=== PATIENT | female | born 1935 | race Hispanic/Latino ===

== ENCOUNTER 2016-07-21 14:16 | Inpatient (IN) | payer MEDICARE ==
--- NOTE | 2016-07-21 15:00 | ED PDOC ---
HPI: Psych/Substance Abuse Time Seen by Provider: 07/21/16 14:29 Chief Complaint (Nursing): Anxiety Chief Complaint (Provider): Anxiety History Per: Patient, Family History/Exam Limitations: no limitations Onset/Duration Of Symptoms: Days Current Symptoms Are (Timing): Still Present Suicide/Self Injury Attempted (Context): None Modifying Factor(s): None Severity: Severe Associated Symptoms: Anxiety Involuntary Hold By: None Additional Complaint(s): Patient is a 81 year old female brought to ED by EMS for severe anxiety today. Patient reports a history of bipolar and anxiety, notes 1 week of worsening anxiety due to being in the hospital. As per granddaughter, patient was clenching her teeth, growling which is unlike her usual anxiety. Patient requesting something to help relax her. Past Medical History Reviewed: Historical Data, Nursing Documentation, Vital Signs Vital Signs: Last Vital Signs Temp 97.7 F 07/21/16 14:20 Pulse 85 07/21/16 14:20 Resp 30 H 07/21/16 14:20 BP 155/92 H 07/21/16 14:20 Pulse Ox 97 07/21/16 14:20 - Medical History PMH: Anxiety, Bipolar Disorder, Depression, HTN, Hypercholesterolemia, Hypothyroidism Denies: Diabetes, Hepatitis, HIV, Chronic Kidney Disease, Seizures, Sexually Transmitted Disease - Surgical History Surgical History: Cholecystectomy Denies: CABG - Family History Family History: States: Unknown Family Hx - Home Medications Home Medications: Ambulatory Orders Medication Instructions Recorded Enalapril Maleate [Vasotec] 5 mg PO DAILY 06/04/16 Levothyroxine [Synthroid] 0.05 mg PO DAILY 06/04/16 Simvastatin [Zocor] 20 mg PO DAILY 06/04/16 Gabapentin [Neurontin] 300 mg PO HS #14 cap 06/09/16 Lorazepam [Ativan] 0.5 mg PO Q12 #28 tab 06/09/16 QUEtiapine [SEROquel] 50 mg PO DAILY #14 tab 06/09/16 QUEtiapine [Seroquel] 100 mg PO HS #14 tab 06/09/16 Sulfamethoxazole/Trimethoprim 1 tab PO Q12 #10 tab 06/09/16 [Bactrim DS Tab] Vilazodone HCl [Viibryd] 40 mg PO HS #14 tablet 06/09/16 - Allergies Allergies/Adverse Reactions: Allergies Allergy/AdvReac Type Severity Reaction Status Date / Time levofloxacin [From Levaquin] Allergy RASH Verified 06/04/16 11:49 Review of Systems ROS Statement: Except As Marked, All Systems Reviewed And Found Negative Cardiovascular: Negative for: Chest Pain, Palpitations Respiratory: Negative for: Shortness of Breath Gastrointestinal: Negative for: Nausea, Vomiting Musculoskeletal: Negative for: Neck Pain Skin: Negative for: Rash Neurological: Negative for: Weakness, Numbness Psych: Positive for: Anxiety Physical Exam - Reviewed Nursing Documentation Reviewed: Yes Vital Signs Reviewed: Yes - Physical Exam Appears: Positive for: Non-toxic, No Acute Distress Skin: Positive for: Normal Color, Warm Eye Exam: Positive for: Normal appearance Neck: Positive for: Normal, Painless ROM Cardiovascular/Chest: Positive for: Regular Rate, Rhythm. Negative for: Murmur Respiratory: Positive for: Normal Breath Sounds. Negative for: Respiratory Distress Extremity: Positive for: Normal ROM Neurologic/Psych: Positive for: Alert, Oriented, Mood/Affect (anxious ) - Laboratory Results Result Diagrams: 07/21/16 15:00 07/21/16 15:00 - ECG O2 Sat by Pulse Oximetry: 97 (RA) Pulse Ox Interpretation: Normal Medical Decision Making Medical Decision Making: Time: 1455 Initial impression: Anxiety Initial plan: -- Tylenol Level -- Alcohol serum -- BMP -- CMP -- UDS -- Salicylate -- CBC -- Ativan -- U/A Scribe Attestation: Documented by Ariadne Elise and Misty Avery acting as a scribe for Kimberlyn Saeed MD MD Scribe Attestation: All medical record entries made by the Scribe were at my direction and personally dictated by me. I have reviewed the chart and agree that the record accurately reflects my personal performance of the history, physical exam, medical decision making, and the department course for this patient. I have also personally directed, reviewed, and agree with the discharge instructions and disposition. ED OBSERVATION Date of observation admission: 07/21/16 Time of observation admission: 14:35 - Progress Note Progress Note: 07/21/16 16:20 Hematology and Chem WNL 07/21/16 16:30 food preparation worker aware of patient, will evaluated at bedside shortly. 07/21/16 17:50 EKG shows: Normal sinus no ST elevation Left axis deviation Rate : 75bpm CXR Impression: No active disease. No significant interval change compared to the prior examination(s). Pt medically clear for crisis evaluation. 07/21/16 18:39 Pt with borderline UTI, will give macrobid. pt awaiting crisis eval. 07/21/16 19:[address] Kent pending crisis eval. Disposition - Clinical Impression Clinical Impression: Anxiety disorder - Patient ED Disposition Is Patient to be Admitted: Transfer of Care - Disposition Disposition: Transfer of Care Disposition Time: 18:23 Condition: FAIR Patient Signed Over To: Alen Kent Handoff Comments: scribe
[2016-07-21 15:22] LABS: ALB/GLOB RATIO 1.4 (1.0-2.1); ALCOHOL SERUM < 10 mg/dl (0-10); ALKALINE PHOSPHATASE 49 U/L (38-126); ALT/SGPT 29 U/L (9-52); AST/SGOT 27 U/L (14-36); BILIRUBIN,TOTAL 0.4 mg/dl (0.2-1.3); BLOOD UREA NITROGEN 21 mg/dl (7-17); CALCIUM 9.3 mg/dL (8.4-10.2); CARBON DIOXIDE 26 mmol/L (22-30); CHLORIDE 104 mmol/L (98-107); GFR AFRICAN-AMERICAN > 60; GLUCOSE,RANDOM 102 mg/dL (65-105); POTASSIUM 4.3 MMOL/L (3.6-5.0); SODIUM 144 mmol/l (132-148); TOTAL PROTEIN 6.2 G/DL (6.3-8.2)
[2016-07-21 15:31] LABS: BASO # 0.1 K/uL (0.0-0.2); BASO % 1.1 % (0.0-2.0); EOS # 0.1 K/uL (0.0-0.7); EOS % 0.8 % (0.0-4.0); HEMATOCRIT 38.3 % (34.0-47.0); LYMPH # 1.7 K/uL (1.0-4.3); LYMPH % 17.5 % (20.0-40.0); MEAN CELL VOLUME 93.1 fl (81.0-99.0); MEAN CORPUSCULAR HEMOGLOBIN 31.3 pg (27.0-31.0); MEAN CORPUSCULAR HGB CONC 33.7 g/dL (33.0-37.0); MONO # 0.5 K/uL (0.0-0.8); MONO % 5.5 % (0.0-10.0); NEUT # 7.3 K/uL (1.8-7.0); NEUT % 75.1 % (50.0-75.0); NRBC % 0.1 % (0.0-0.0); RED CELL DISTRIBUTION WIDTH 13.5 % (11.5-14.5); WHITE BLOOD COUNT 9.7 K/uL (4.8-10.8)
--- NOTE | 2016-07-21 16:35 | RAD ---
HISTORY: Sec evaluation. Technique: Single view portable erect @ 16:10. COMPARISON: 05/27/2016. FINDINGS: LUNGS: No active pulmonary disease. PLEURA: No significant pleural effusion identified, no pneumothorax apparent. CARDIOVASCULAR: Cardiomegaly. No evidence of acute, significant cardiovascular disease. OSSEOUS STRUCTURES: No significant abnormalities. VISUALIZED UPPER ABDOMEN: Normal. OTHER FINDINGS: Stable large hiatal hernia. IMPRESSION: No active disease. No significant interval change compared to the prior examination(s).
[2016-07-21 18:19] LABS: RBC URINE < 1 /hpf (0-3); URINE BILIRUBIN NEGATIVE (NEGATIVE); URINE BLOOD NEGATIVE (NEGATIVE); URINE COLOR STRAW (YELLOW); URINE GLUCOSE (UA) NEG (Normal); URINE KETONE NEGATIVE (NEGATIVE); URINE LEUKOCYTE ESTERASE SMALL Leu/uL (Negative); URINE PROTEIN NEGATIVE (NEGATIVE); URINE UROBILINOGEN 0.2-1.0 mg/dL (0.2-1.0); WBC URINE 6 /hpf (0-5)
--- NOTE | 2016-07-21 19:27 | ED PDOC ---
- Laboratory Results Result Diagrams: 07/21/16 15:00 07/21/16 15:00 - ECG O2 Sat by Pulse Oximetry: 97 (RA) Pulse Ox Interpretation: Normal Medical Decision Making Medical Decision Making: Receiving Sign Out: Patient signed out to me by Dr. Saeed pending crisis evaluation. Patient evaluated by crisis and will be admitted for further treatment Dx Anxiety D/O Fair Scribe Attestation: Documented by Misty Avery acting as a scribe for Alen Kent MD. Provider Attestation: All medical record entries made by the Scribe were at my direction and personally dictated by me. I have reviewed the chart and agree that the record accurately reflects my personal performance of the history, physical exam, medical decision making, and the department course for this patient. I have also personally directed, reviewed, and agree with the discharge instructions and disposition. Disposition - Clinical Impression Clinical Impression: Anxiety disorder - POA Present On Arrival: None - Disposition Disposition: Admitted as In-Patient Disposition Time: 19:00 Condition: FAIR Progress Note - Review of Symptoms Events since last encounter: 2036 POA arrived in ED, pt to be admitted to general psych under Dr. Hsieh.
[2016-07-21] MEDS ORDERED: Alum-Mag Hydrox-Simethicone Susp (30 mL) PO PRN (22:10)
[2016-07-21] MEDS ORDERED: Bismuth Subsalicylate 262 mg/15 ml Sus (240 ml) PO PRN (22:10)
[2016-07-21] MEDS ORDERED: Magnesium Hydroxide Susp 30 ml UD PO PRN (22:10)
[2016-07-21] MEDS ORDERED: Patient's Own Med (Simvastatin [Zocor] 20 MG) PO SCH (23:00)
[2016-07-22 04:10] VITALS: O2SAT 97
--- NOTE | 2016-07-22 07:51 | PCM.PSYCH ---
Initial Psychiatric Evaluation - Initial Psychiatric Evaluation Type of Admission: Voluntary Legal Status: Capacity Chief Complaint (in patient's own words): "I'm just so anxious and depressed." Patient's Reaction to Hospitalization: HPI: 81 yo female, history of personality disorder, reported bipolar depression , has had ECT in the past and many other medication trials, generally poor responder to interventions, presented with worsening depression and anxiety. She reports that she has been complaint with her medications but is reporting debilitating anxiety, perseverates about how she cant breathe and this leads to her feeling depressed. NO AH/VH/SI/HI. No significant change in sleep or appetite. She has a hard time engaging in conversation other than discussing her various somatic preoccupations and anxieties. PAST PSYCH HX: Pt reported multiple prior psychiatric admissions for anxiety and depression in the last 20 years, including here. Hx of multiple medication trials and 2 courses of ECT with poor response. No hx of prior suicide attempt. No hx of psychosis. SUBSTANCE ABUSE HX: She denied hx of alcohol and illicit drug use. FAMILY HX: Pt denied. MEDICAL HX: HTN, Hyperlipidemia. SOCIAL HX: Lives with her , has one son and two daughters, worked in a [employer]. From [place] ([facility] Current Medications: Active Medications Generic Name Dose Route Start Last Admin Trade Name Freq PRN Reason Stop Dose Admin Acetaminophen 650 mg 07/21/16 22:10 Tylenol 325mg Tab PO Q4 PRN Pain, moderate (4-7) Al Hydrox/Mg Hydrox/Simethicone 30 ml 07/21/16 22:10 Maalox Plus 30 Ml PO Q4 PRN Dyspepsia Atorvastatin Calcium 10 mg 07/21/16 23:00 07/21/16 23:07 Lipitor PO 10 mg HS PADMAJA Administration Bismuth Subsalicylate 524 mg 07/21/16 22:10 Pepto-Bismol PO Q4 PRN Diarrhea Enalapril Maleate 5 mg 07/22/16 09:00 Vasotec PO DAILY PADMAJA Gabapentin 300 mg 07/21/16 23:00 07/21/16 23:03 Neurontin PO 300 mg HS PADMAJA Administration Home Med 40 mg 07/22/16 09:00 Vilazodone Hcl [Viibryd] PO DAILY PADMAJA Levothyroxine Sodium 50 mcg 07/22/16 06:30 Synthroid PO DAILY@0630 PADMAJA Lorazepam 0.5 mg 07/22/16 09:00 Ativan PO BID PADMAJA Magnesium Hydroxide 30 ml 07/21/16 22:10 Milk Of Magnesia PO HS PRN Constipation Quetiapine Fumarate 100 mg 07/21/16 22:15 07/21/16 23:03 Seroquel PO 100 mg HS PADMAJA Administration Quetiapine Fumarate 50 mg 07/22/16 09:00 Seroquel PO DAILY PADMAJA Past Psychiatric History - Past Psychiatric History Previous Treatment History: Inpatient Pertinent Medical Hx (Current Medical&Sleep Prob, Allergies): Allergies Allergy/AdvReac Type Severity Reaction Status Date / Time levofloxacin [From Levaquin] Allergy RASH Verified 06/04/16 11:49 Enalapril Maleate [Vasotec] 5 mg PO DAILY 06/04/16 Levothyroxine [Synthroid] 0.05 mg PO DAILY 06/04/16 Simvastatin [Zocor] 20 mg PO DAILY 06/04/16 Gabapentin [Neurontin] 300 mg PO HS #14 cap 06/09/16 Lorazepam [Ativan] 0.5 mg PO Q12 #28 tab 06/09/16 QUEtiapine [SEROquel] 50 mg PO DAILY #14 tab 06/09/16 QUEtiapine [Seroquel] 100 mg PO HS #14 tab 06/09/16 Sulfamethoxazole/Trimethoprim [Bactrim DS Tab] 1 tab PO Q12 #10 tab 06/09/16 Vilazodone HCl [Viibryd] 40 mg PO HS #14 tablet 06/09/16 Review of Systems - Review of Systems All systems: reviewed and no additional remarkable complaints except - Psychiatric Psychiatric: Anxiety, Depression, Difficulty Concentrating, Memory Loss Mental Status Examination - Personal Presentation Personal Presentation: Looks stated age - Affect Affect: Other (Anxious) - Motor Activity Motor Activity: Calm - Reliability in Providing Information Reliability in Providing Information: Fair - Speech Speech: Organized - Mood Mood: Depressed, Anxious - Formal Thought Process Formal Thought Process: No Impairment - Obsessions/Compulsions Obsessions: No Compulsions: No - Cognitive Functions Orientation: Person, Place, Situation, Time Sensorium: Alert Attention/Concentration: Attentive Judgement: Intact, as evidence by: Good judgement Memory: Recent intact, as evidence by: Ability to recall events of the day, Remote intact, as evidenced by: Abilit to recall sig. life events, Remote intact , as evidenced by: Ability to recall historical events - Strength & Assets Inventory Strength & Assets Inventory: Family support, Cooperative DSM 5 DX - DSM 5 DSM 5 Diagnosis: Generalized Anxiety Disorder, Personality Disorder NOS - Recommended/Plan of Treatment Treatment Recommendations and Plan of Treatment: Impression: 81 yo female, history of personality disorder, reported bipolar depression, has had ECT in the past and many other medication trials, generally poor responder to interventions, presented with worsening depression and anxiety. Patient would benefit from in patient admission for stabilization and treatment. Plan: -Continue Viibryd 40 mg for depression -Increase Seroquel to 50 AM/ 150 mg PO HS -Continue Ativan 0.5 mg PO Q12 hrs -Medicine consult -Individual, group & milieu tx -Patient is competent and has capacity to make medical decisions for herself Projected ELOS: 3-5 days Discharge Plan and Discharge Criteria: Discharge to home when psychiatrically stable - Smoking Cessation Smoking Cessation Initiated: No Reason for not providing: Not indicated
[2016-07-22 08:02] LABS: CHOLESTEROL 149 mg/dL (0-199)
[2016-07-22 08:06] LABS: IRON 64 ug/dL (37-170)
[2016-07-22] MEDS: Levothyroxine 50 MCG TAB PO SCH (08:25)
[2016-07-22 08:35] LABS: THYROID STIMULATING HORMONE 1.33 mIU/ML (0.46-4.68)
--- NOTE | 2016-07-22 12:54 | CP.PCM.CON ---
History of Present Illness - History of Present Illness History of Present Illness: Patient presented in ER with increasing anxiety poor response to present rx. Hx of bi-polar depression, htn, hypothyroid, hyper cholesterol. On EDGARDO inh, T4 replacement and statin. Review of Systems - Constitutional Constitutional: As Per HPI - EENT Eyes: As Per HPI Nose/Mouth/Throat: As Per HPI - Cardiovascular Cardiovascular: As Per HPI - Respiratory Respiratory: As Per HPI - Gastrointestinal Gastrointestinal: As Per HPI - Musculoskeletal Musculoskeletal: As Per HPI - Neurological Neurological: As Per HPI - Psychiatric Psychiatric: As Per HPI Past Patient History - Infectious Disease Hx of Infectious Diseases: None - Tetanus Immunizations Tetanus Immunization: Unknown - Past Social History Smoking Status: Never Smoked - CARDIAC Hx Hypertension: Yes - PULMONARY Hx Tuberculosis: No - NEUROLOGICAL Hx Seizures: No - HEENT Hx HEENT Problems: No - RENAL Hx Chronic Kidney Disease: No - ENDOCRINE/METABOLIC Hx Hypothyroidism: Yes - HEMATOLOGICAL/ONCOLOGICAL Hx Human Immunodeficiency Virus (HIV): No - INTEGUMENTARY Hx Dermatological Problems: No - MUSCULOSKELETAL/RHEUMATOLOGICAL Hx Falls: Yes - GASTROINTESTINAL Hx Gastrointestinal Disorders: No Hx Constipation: Yes - GENITOURINARY/GYNECOLOGICAL Hx Sexually Transmitted Disorders: No - PSYCHIATRIC Hx Anxiety: Yes Hx Bipolar Disorder: Yes Hx Depression: Yes Hx Substance Use: No - SURGICAL HISTORY Hx Cholecystectomy: Yes Hx Coronary Artery Bypass Graft: No - ANESTHESIA Hx Anesthesia: No Meds Allergies/Adverse Reactions: Allergies Allergy/AdvReac Type Severity Reaction Status Date / Time levofloxacin [From Levaquin] Allergy RASH Verified 06/04/16 11:49 - Medications Medications: Current Medications Acetaminophen (Tylenol 325mg Tab) 650 mg PO Q4 PRN PRN Reason: Pain, moderate (4-7) Al Hydrox/Mg Hydrox/Simethicone (Maalox Plus 30 Ml) 30 ml PO Q4 PRN PRN Reason: Dyspepsia Atorvastatin Calcium (Lipitor) 10 mg PO HS [facility] Last Admin: 07/21/16 23:07 Dose: 10 mg Bismuth Subsalicylate (Pepto-Bismol) 524 mg PO Q4 PRN PRN Reason: Diarrhea Enalapril Maleate (Vasotec) 5 mg PO DAILY [facility] Last Admin: 07/22/16 08:25 Dose: 5 mg Gabapentin (Neurontin) 300 mg PO HS [facility] Last Admin: 07/21/16 23:03 Dose: 300 mg Home Med (Vilazodone Hcl [Viibryd]) 40 mg PO DAILY [facility] Levothyroxine Sodium (Synthroid) 50 mcg PO DAILY@0630 [facility] Last Admin: 07/22/16 08:25 Dose: 50 mcg Lorazepam (Ativan) 0.5 mg PO BID [facility] Last Admin: 07/22/16 08:25 Dose: 0.5 mg Magnesium Hydroxide (Milk Of Magnesia) 30 ml PO HS PRN PRN Reason: Constipation Quetiapine Fumarate (Seroquel) 100 mg PO Q12 [facility] Physical Exam - Constitutional Appears: Agitated, Confused - Head Exam Head Exam: ATRAUMATIC, NORMAL INSPECTION, NORMOCEPHALIC - Eye Exam Eye Exam: Normal appearance - ENT Exam ENT Exam: Mucous Membranes Moist - Neck Exam Neck exam: Positive for: Full Rom - Respiratory Exam Respiratory Exam: Clear to Auscultation Bilateral - Cardiovascular Exam Cardiovascular Exam: REGULAR RHYTHM, +S1, +S2 - GI/Abdominal Exam GI & Abdominal Exam: Normal Bowel Sounds - Extremities Exam Extremities exam: Positive for: normal inspection - Neurological Exam Neurological exam: Alert, CN II-XII Intact, Oriented x3 - Psychiatric Exam Psychiatric exam: Anxious, Depressed, Flat Affect - Skin Skin Exam: Normal Color Results - Vital Signs Recent Vital Signs: Last Vital Signs Temp 97.3 F L 07/22/16 06:00 Pulse 78 07/22/16 06:00 Resp 18 07/22/16 06:00 BP 148/87 07/22/16 06:00 Pulse Ox 97 07/22/16 04:10 - Labs Result Diagrams: 07/21/16 15:00 07/21/16 15:00 Labs: Laboratory Results - last 24 hr 07/22/16 07:27 Iron 64 TIBC 307 % Saturation 21 Ferritin 25.0 Triglycerides 88 Cholesterol 149 LDL Cholesterol Direct 60 HDL Cholesterol 63 Vitamin B12 398 Free T4 0.95 Thyroxine (T4) 6.40 TSH 3rd Generation 1.33 Assessment & Plan (1) Anxiety disorder Status: Chronic (2) Anxiety Status: Acute (3) Bipolar disorder Status: Chronic (4) Urinary tract infection Status: Suspected (5) HTN (hypertension) Status: Chronic (6) Hypercholesteremia Status: Chronic (7) Hypothyroid Status: Chronic - Assessment and Plan (Free Text) Plan: Continue present rx.
[2016-07-22 18:16] LABS: FOLATE > 20.0 ng/mL
[2016-07-22] MEDS: Tmp-Smz 800 mg-160 mg DS Tab PO SCH (21:05)
[2016-07-23] MEDS: Levothyroxine 50 MCG TAB PO SCH (08:26)
[2016-07-23] MEDS: Tmp-Smz 800 mg-160 mg DS Tab PO SCH ×2 (08:28→21:02)
--- NOTE | 2016-07-23 12:40 | PCM.PYCHPN ---
Psychiatric Progress Note - Psychiatric Progress Note Patient seen today, length of contact: discussed with team Patient Chief Complaint: are you the real doctor? Problems Identified/Issues Discussed: pt pacing, making grunting noises. attempting to have this ghost writer take over her treatment. observed talking normally on phone with family. pt is taking medications as prescribed. Medication Change: No Medical Record Reviewed: Yes Mental Status Examination - Cognitive Function Orientation: Person, Place, Situation, Time Memory: Intact Attention: WNL Concentration: WNL Association: WNL Fund of Knowledge: [facility] Decription of patient's judgement and insights: fair - Mood Mood: Depressed, Anxious - Affect Affect: Other (Anxious) - Speech Speech: Appropriate (when engaged in conversation; otherwise observed grunting( seems to be seeking attention)) - Formal Thought Process Formal Thought Process: No Impairment - Suicidal Ideation Suicidal Ideation: No - Homicidal Ideation Homicidal Ideation: No Goal/Treatment Plan - Goal/Treatment Plan Need for Continued Stay: Remain at risks for inpatient hospitalization Progress Toward Problem(s) and Goals/Treatment Plan: generalized anxiety personality disorder continue current treatment pre primary team Estimated Date of D/C: 07/25/16
--- NOTE | 2016-07-23 13:16 | CP.PCM.PN ---
Subjective - Date & Time of Evaluation Date of Evaluation: 07/23/16 Time of Evaluation: 13:16 - Subjective Subjective: No new changes. Objective - Vital Signs/Intake and Output Vital Signs (last 24 hours): Temp Pulse Resp BP Pulse Ox 98 F 84 20 156/86 H 97 07/23/16 06:00 07/23/16 06:00 07/23/16 06:00 07/23/16 06:00 07/22/16 04:10 - Medications Medications: Current Medications Acetaminophen (Tylenol 325mg Tab) 650 mg PO Q4 PRN PRN Reason: Pain, moderate (4-7) Al Hydrox/Mg Hydrox/Simethicone (Maalox Plus 30 Ml) 30 ml PO Q4 PRN PRN Reason: Dyspepsia Atorvastatin Calcium (Lipitor) 10 mg PO HS [facility] Last Admin: 07/22/16 21:06 Dose: 10 mg Bismuth Subsalicylate (Pepto-Bismol) 524 mg PO Q4 PRN PRN Reason: Diarrhea Enalapril Maleate (Vasotec) 5 mg PO DAILY [facility] Last Admin: 07/23/16 08:28 Dose: 5 mg Gabapentin (Neurontin) 300 mg PO [facility] Last Admin: 07/22/16 21:05 Dose: 300 mg Home Med (Vilazodone Hcl [Viibryd]) 40 mg PO DAILY [facility] Last Admin: 07/23/16 08:26 Dose: 40 mg Levothyroxine Sodium (Synthroid) 50 mcg PO DAILY@0630 [facility] Last Admin: 07/23/16 08:26 Dose: 50 mcg Lorazepam (Ativan) 0.5 mg PO BID [facility] Last Admin: 07/23/16 08:29 Dose: 0.5 mg Magnesium Hydroxide (Milk Of Magnesia) 30 ml PO HS PRN PRN Reason: Constipation Quetiapine Fumarate (Seroquel) 50 mg PO DAILY [facility] Last Admin: 07/23/16 08:26 Dose: 50 mg Quetiapine Fumarate (Seroquel) 150 mg PO HS [facility] Last Admin: 07/22/16 21:06 Dose: 150 mg Trimethoprim/Sulfamethoxazole (Bactrim Ds Tab) 1 tab PO Q12 [facility] Last Admin: 07/23/16 08:28 Dose: 1 tab - Constitutional Appears: Confused - Head Exam Head Exam: ATRAUMATIC, NORMAL INSPECTION, NORMOCEPHALIC - Eye Exam Eye Exam: Normal appearance Pupil Exam: PERRL - ENT Exam ENT Exam: Mucous Membranes Moist - Neck Exam Neck Exam: Full ROM - Respiratory Exam Respiratory Exam: Clear to Ausculation Bilateral - Cardiovascular Exam Cardiovascular Exam: REGULAR RHYTHM, +S1, +S2 - Neurological Exam Neurological Exam: Alert, Altered, Awake - Psychiatric Exam Psychiatric exam: Anxious, Depressed, Flat Affect - Skin Skin Exam: Normal Color Assessment and Plan (1) Anxiety disorder Status: Chronic (2) Anxiety Status: Acute (3) Bipolar disorder Status: Chronic (4) Urinary tract infection Status: Suspected (5) HTN (hypertension) Status: Chronic (6) Hypercholesteremia Status: Chronic (7) Hypothyroid Status: Chronic - Assessment and Plan (Free Text) Assessment: Continue present rx
[2016-07-24] MEDS: Levothyroxine 50 MCG TAB PO SCH (07:48)
[2016-07-24] MEDS: Tmp-Smz 800 mg-160 mg DS Tab PO SCH (08:03)
--- NOTE | 2016-07-24 12:31 | PCM.PYCHPN ---
Psychiatric Progress Note - Psychiatric Progress Note Patient seen today, length of contact: discussed with team Patient Chief Complaint: doctor, i don't feel good Problems Identified/Issues Discussed: pt still pacing, making grunting noises. states she wants to go upstairs and visit her . did not like that she would have to be discharged in order to leave the unit. she states "i am not ready...not ready doctor" Medication Change: No Medical Record Reviewed: Yes Mental Status Examination - Cognitive Function Orientation: Person, Place, Situation, Time Memory: Intact Attention: WNL Concentration: WNL Association: [facility] Fund of Knowledge: [facility] Decription of patient's judgement and insights: fair - Mood Mood: Depressed, Anxious - Affect Affect: Other (Anxious) - Speech Speech: Appropriate (when engaged in conversation; otherwise observed grunting( seems to be seeking attention)) - Formal Thought Process Formal Thought Process: No Impairment - Suicidal Ideation Suicidal Ideation: No - Homicidal Ideation Homicidal Ideation: No Goal/Treatment Plan - Goal/Treatment Plan Need for Continued Stay: Remain at risks for inpatient hospitalization Progress Toward Problem(s) and Goals/Treatment Plan: generalized anxiety personality disorder continue current treatment pre primary team Estimated Date of D/C: 07/25/16
--- NOTE | 2016-07-24 16:12 | CP.PCM.CON ---
History of Present Illness - History of Present Illness History of Present Illness: No new changes Review of Systems - Constitutional Constitutional: As Per HPI - EENT Eyes: As Per HPI Nose/Mouth/Throat: As Per HPI - Cardiovascular Cardiovascular: As Per HPI - Respiratory Respiratory: As Per HPI - Gastrointestinal Gastrointestinal: As Per HPI - Musculoskeletal Musculoskeletal: As Per HPI - Neurological Neurological: As Per HPI Past Patient History - Infectious Disease Hx of Infectious Diseases: None - Tetanus Immunizations Tetanus Immunization: Unknown - Past Social History Smoking Status: Never Smoked - CARDIAC Hx Hypertension: Yes - PULMONARY Hx Tuberculosis: No - NEUROLOGICAL Hx Seizures: No - HEENT Hx HEENT Problems: No - RENAL Hx Chronic Kidney Disease: No - ENDOCRINE/METABOLIC Hx Hypothyroidism: Yes - HEMATOLOGICAL/ONCOLOGICAL Hx Human Immunodeficiency Virus (HIV): No - INTEGUMENTARY Hx Dermatological Problems: No - MUSCULOSKELETAL/RHEUMATOLOGICAL Hx Falls: Yes - GASTROINTESTINAL Hx Gastrointestinal Disorders: No Hx Constipation: Yes - GENITOURINARY/GYNECOLOGICAL Hx Sexually Transmitted Disorders: No - PSYCHIATRIC Hx Anxiety: Yes Hx Bipolar Disorder: Yes Hx Depression: Yes Hx Substance Use: No - SURGICAL HISTORY Hx Cholecystectomy: Yes Hx Coronary Artery Bypass Graft: No - ANESTHESIA Hx Anesthesia: No Meds Allergies/Adverse Reactions: Allergies Allergy/AdvReac Type Severity Reaction Status Date / Time levofloxacin [From Levaquin] Allergy RASH Verified 06/04/16 11:49 - Medications Medications: Current Medications Acetaminophen (Tylenol 325mg Tab) 650 mg PO Q4 PRN PRN Reason: Pain, moderate (4-7) Al Hydrox/Mg Hydrox/Simethicone (Maalox Plus 30 Ml) 30 ml PO Q4 PRN PRN Reason: Dyspepsia Atorvastatin Calcium (Lipitor) 10 mg PO [facility] Last Admin: 07/23/16 21:02 Dose: 10 mg Bismuth Subsalicylate (Pepto-Bismol) 524 mg PO Q4 PRN PRN Reason: Diarrhea Enalapril Maleate (Vasotec) 5 mg PO DAILY [facility] Last Admin: 07/24/16 08:03 Dose: 5 mg Gabapentin (Neurontin) 300 mg PO [facility] Last Admin: 07/23/16 21:02 Dose: 300 mg Home Med (Vilazodone Hcl [Viibryd]) 40 mg PO DAILY [facility] Last Admin: 07/24/16 08:03 Dose: 40 mg Levothyroxine Sodium (Synthroid) 50 mcg PO DAILY@0630 [facility] Last Admin: 07/24/16 07:48 Dose: 50 mcg Lorazepam (Ativan) 0.5 mg PO BID [facility] Last Admin: 07/24/16 08:03 Dose: 0.5 mg Magnesium Hydroxide (Milk Of Magnesia) 30 ml PO HS PRN PRN Reason: Constipation Quetiapine Fumarate (Seroquel) 50 mg PO DAILY [facility] Last Admin: 07/24/16 08:03 Dose: 50 mg Quetiapine Fumarate (Seroquel) 150 mg PO HS [facility] Last Admin: 07/23/16 21:02 Dose: 150 mg Trimethoprim/Sulfamethoxazole (Bactrim Ds Tab) 1 tab PO Q12 [facility] Last Admin: 07/24/16 08:03 Dose: 1 tab Physical Exam - Constitutional Appears: Confused - Head Exam Head Exam: ATRAUMATIC, NORMAL INSPECTION, NORMOCEPHALIC - Eye Exam Eye Exam: EOMI, Normal appearance, PERRL Pupil Exam: NORMAL ACCOMODATION - ENT Exam ENT Exam: Mucous Membranes Moist, Normal Exam - Neck Exam Neck exam: Positive for: Normal Inspection - Respiratory Exam Respiratory Exam: Clear to Auscultation Bilateral - Cardiovascular Exam Cardiovascular Exam: REGULAR RHYTHM, +S1, +S2 - GI/Abdominal Exam GI & Abdominal Exam: Normal Bowel Sounds - Extremities Exam Extremities exam: Positive for: normal inspection - Neurological Exam Neurological exam: Alert, CN II-XII Intact - Psychiatric Exam Psychiatric exam: Anxious, Depressed, Flat Affect Results - Vital Signs Recent Vital Signs: Last Vital Signs Temp 98 F 07/24/16 15:38 Pulse 86 07/24/16 15:38 Resp 20 07/24/16 15:38 BP 128/78 07/24/16 15:38 Pulse Ox 97 07/22/16 04:10 - Labs Result Diagrams: 07/21/16 15:00 07/21/16 15:00 Assessment & Plan (1) Anxiety disorder Status: Chronic (2) Anxiety Status: Acute (3) Bipolar disorder Status: Chronic (4) Urinary tract infection Status: Ruled-out (5) HTN (hypertension) Status: Chronic (6) Hypercholesteremia Status: Chronic (7) Hypothyroid Status: Chronic - Assessment and Plan (Free Text) Plan: DC antibx. Continue present care
[2016-07-25] MEDS: Levothyroxine 50 MCG TAB PO SCH (08:29)
--- NOTE | 2016-07-25 11:44 | CP.PCM.PN ---
Subjective - Date & Time of Evaluation Date of Evaluation: 07/25/16 Time of Evaluation: 11:45 - Subjective Subjective: Patient in her usual mental status not in distress, ambulating. Objective - Vital Signs/Intake and Output Vital Signs (last 24 hours): Temp Pulse Resp BP Pulse Ox 97.9 F 63 18 136/75 97 07/25/16 06:00 07/25/16 06:00 07/25/16 06:00 07/25/16 06:00 07/22/16 04:10 - Medications Medications: Current Medications Acetaminophen (Tylenol 325mg Tab) 650 mg PO Q4 PRN PRN Reason: Pain, moderate (4-7) Al Hydrox/Mg Hydrox/Simethicone (Maalox Plus 30 Ml) 30 ml PO Q4 PRN PRN Reason: Dyspepsia Atorvastatin Calcium (Lipitor) 10 mg PO HS [facility] Last Admin: 07/24/16 21:06 Dose: 10 mg Bismuth Subsalicylate (Pepto-Bismol) 524 mg PO Q4 PRN PRN Reason: Diarrhea Enalapril Maleate (Vasotec) 5 mg PO DAILY [facility] Last Admin: 07/25/16 08:29 Dose: 5 mg Gabapentin (Neurontin) 300 mg PO [facility] Last Admin: 07/24/16 21:06 Dose: 300 mg Home Med (Vilazodone Hcl [Viibryd]) 40 mg PO DAILY [facility] Last Admin: 07/25/16 08:29 Dose: 40 mg Levothyroxine Sodium (Synthroid) 50 mcg PO DAILY@0630 [facility] Last Admin: 07/25/16 08:29 Dose: 50 mcg Lorazepam (Ativan) 0.5 mg PO BID [facility] Last Admin: 07/25/16 08:29 Dose: 0.5 mg Magnesium Hydroxide (Milk Of Magnesia) 30 ml PO HS PRN PRN Reason: Constipation Quetiapine Fumarate (Seroquel) 50 mg PO DAILY [facility] Last Admin: 07/25/16 08:29 Dose: 50 mg Quetiapine Fumarate (Seroquel) 150 mg PO [facility] Last Admin: 07/24/16 21:06 Dose: 150 mg - Constitutional Appears: Non-toxic - Head Exam Head Exam: ATRAUMATIC, NORMAL INSPECTION - Eye Exam Eye Exam: Normal appearance - ENT Exam ENT Exam: Mucous Membranes Moist - Neck Exam Neck Exam: Full ROM - Respiratory Exam Respiratory Exam: Clear to Ausculation Bilateral - Cardiovascular Exam Cardiovascular Exam: REGULAR RHYTHM, +S1, +S2 - GI/Abdominal Exam GI & Abdominal Exam: Normal Bowel Sounds - Neurological Exam Neurological Exam: Alert, Awake, Oriented x3 Assessment and Plan (1) Anxiety disorder Status: Chronic (2) Anxiety Status: Acute (3) Bipolar disorder Status: Chronic (4) Urinary tract infection Status: Ruled-out (5) HTN (hypertension) Status: Chronic (6) Hypercholesteremia Status: Chronic (7) Hypothyroid Status: Chronic - Assessment and Plan (Free Text) Plan: Patient medically stable will follow as need.
--- NOTE | 2016-07-25 12:28 | PCM.PYCHPN ---
Psychiatric Progress Note - Psychiatric Progress Note Patient seen today, length of contact: Patient evaluted, chart reviewed, case discussed with team, 35 min Patient Chief Complaint: "I'm anxious." Problems Identified/Issues Discussed: Patient continues to report feeling very anxious. She denies SI/HI/AH/VH/ paranoia. She is very preoccupied with her health and concerned about the wellbeing of her ill . She is very anxious about "the future", but has a difficult time stating what in particular makes her anxious. She has been eating/sleeping well. 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, fair judgment - Mood Mood: Depressed, Anxious - Affect Affect: Other (Anxious) - Speech Speech: Appropriate (when engaged in conversation; otherwise observed grunting( seems to be seeking attention)) - Formal Thought Process Formal Thought Process: No Impairment Psychotic Thoughts and Behaviors: NO AH/VH/paranoia - Suicidal Ideation Suicidal Ideation: No - Homicidal Ideation Homicidal Ideation: No Goal/Treatment Plan - Goal/Treatment Plan Need for Continued Stay: Remain at risks for inpatient hospitalization, Severe depression anxiety Progress Toward Problem(s) and Goals/Treatment Plan: Impression: 81 yo female, history of personality disorder, reported bipolar depression, has had ECT in the past and many other medication trials, generally poor responder to interventions, presented with worsening depression and anxiety. Plan: -Continue Viibryd 40 mg for depression -Continue Seroquel 50 AM/ 150 mg PO HS -Continue Ativan 0.5 mg PO Q12 hrs -Medicine consult -Individual, group & milieu tx -Patient is competent and has capacity to make medical decisions for herself -Likely discharge to home tomorrow Estimated Date of D/C: 07/26/16
--- NOTE | 2016-07-25 17:12 | CARD ---
APPROVED REPORT EKG Measurement Heart [id number] <Conclusion> Normal sinus rhythm Left axis deviation Abnormal ECG
[2016-07-25 18:26] VITALS: PULSE 79
[2016-07-26] MEDS: Levothyroxine 50 MCG TAB PO SCH (08:03)
--- NOTE | 2016-07-26 10:02 | PCM.PYCHDC ---
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 She reports that she has been complaint with her medications but is reporting debilitating anxiety, perseverates about how she cant breathe and this leads to her feeling depressed. NO AH/VH/SI/HI. No significant change in sleep or appetite. She has a hard time engaging in conversation other than discussing her various somatic preoccupations and anxieties. PAST PSYCH HX: Pt reported multiple prior psychiatric admissions for anxiety and depression in the last 20 years, including here. Hx of multiple medication trials and 2 courses of ECT with poor response. No hx of prior suicide attempt. No hx of psychosis. SUBSTANCE ABUSE HX: She denied hx of alcohol and illicit drug use. FAMILY HX: Pt denied. MEDICAL HX: HTN, Hyperlipidemia. SOCIAL HX: Lives with her , has one son and two daughters, worked in a [employer]. From [place] ([facility]). Consultations:: List each consultation separately and include: 1. Reason for request. 2. Findings. 3. Follow-up Consultations: Medicine consult Summary of Hospital Course include:: 1. Description of specific treatment plan utilized for patients during their course of treatmen. 2. Summarize the time- course for resolution of acute symptoms and/or regressed behaviors. 3. Describe issues identified and worked on during hospitalization. 4. Describe medication utilized. 5. Describe medical problems identified and treated. 6. Reassessment of suicide risk Summary of Hospital Course: Patient admitted to the yasmin unit. Individual and group therapy were provided. The Seroquel was titrated up to 50 mg PO AM/ 150 mg PO HS and she was monitored for adverse effects (did not report any). Patient has improved anxiety, but continues to have poor insight into her severe personality disorder and how it affects her life and family. 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 Patient has poor insight into her severe personality disorder, dramatic behaviors and need for attention and to play the sick role. Patient was informed that she would benefit from therapy as an outpatient. Patient also informed that therapy will be more beneficial for her than medication modifications as she has been on a wide range of antidepressants, antipsychotics, ETC trial, had treatment with various psychiatrists (who she ends tx with because she feels they weren't good or helping her), and no medications nor ETC has improved any of her symptoms. NO AH/VH/SI/HI. Patient is not an acute danger to herself or others. She is psychiatrically stable for discharge. Plan: -Continue Viibryd 40 mg for depression -Continue Seroquel 50 AM/ 150 mg PO HS -Continue Ativan 0.5 mg PO Q12 hrs -Medicine consult -Individual, group & milieu tx -Patient is competent and has capacity to make medical decisions for herself -Discharge to home, son aware of the plan -Patient evaluated, case discussed with team and son, prescriptions prepared, High level discharge- 40 min Prescriptions/Medication Reconciliation: QUEtiapine [SEROquel] 100 mg PO HS #30 tab Quetiapine Fumarate [Seroquel] 50 mg PO Q12 #60 tablet - Smoking Cessation Smoking Cessation Medication prescribed: No Reason for not providing: Not indicated, patient does not smoke - Antipsychotic Medications Pt discharged on 2 or more routine antipsychotic medications: No
[2016-07-26 10:12] VITALS: BP 163/78; RESP 20; TEMP 97.5
== END 2016-07-26 10:35 | disposition home or self-care (01) | DRG 880 ==
LOC: H.ER 14:16 → H.EROBSV 14:35 → OBSVTOIN 20:38 → H.ERHOLD 20:46 → H.STEP 22:05
PROVIDERS: ADMIT Psychiatry & Neurology Psychiatry; ATTEND Psychiatry & Neurology Psychiatry
PROC: GZHZZZZ Group Psychotherapy (ICD-10-PCS; principal; 2016-07-21)
PROC: GZ58ZZZ Individual Psychotherapy, Cognitive-Behavioral (ICD-10-PCS; 2016-07-21)
DX: F41.8 Other specified anxiety disorders (principal); N39.0 Urinary tract infection, site not specified; F60.3 Borderline personality disorder; F41.1 Generalized anxiety disorder; I10 Essential (primary) hypertension; E03.9 Hypothyroidism, unspecified; E78.5 Hyperlipidemia, unspecified; F31.9 Bipolar disorder, unspecified; E78.00 Pure hypercholesterolemia, unspecified; Z88.3 Allergy status to other anti-infective agents

== ENCOUNTER 2016-08-15 17:03 | Emergency (ER) | payer MEDICARE ==
[2016-08-15 17:11] VITALS: BP 156/88; PULSE 87; RESP 16; TEMP 98.5; O2SAT 96
[2016-08-15] MEDS ORDERED: Povidone Iodine Oint 10% Foilpak UD ONE (17:34)
--- NOTE | 2016-08-15 18:01 | ED PDOC ---
HPI: General Adult Time Seen by Provider: 08/15/16 17:12 Chief Complaint (Nursing): Upper Extremity Problem/Injury Chief Complaint (Provider): Right thumb infection History Per: Patient History/Exam Limitations: no limitations Onset/Duration Of Symptoms: Days (4) Have you had recent travel within the past 21 days to any of the following countries: [place], [place], [place] or [place]?: No Current Symptoms Are (Timing): Still Present Additional Complaint(s): Pt seen by Dr. Patel today and sent to ER for I and D of finger infection. Past Medical History Reviewed: Historical Data, Nursing Documentation, Vital Signs Vital Signs: Last Vital Signs Temp 98.5 F 08/15/16 17:08 Pulse 87 08/15/16 17:08 Resp 16 08/15/16 17:08 BP 156/88 H 08/15/16 17:08 Pulse Ox 96 08/15/16 17:08 - Medical History PMH: Anxiety, Bipolar Disorder, Depression, HTN, Hypercholesterolemia, Hypothyroidism Denies: Diabetes, Hepatitis, HIV, Chronic Kidney Disease, Seizures, Sexually Transmitted Disease - Surgical History Surgical History: Cholecystectomy Denies: CABG - Family History Family History: States: Unknown Family Hx - Living Arrangements Living Arrangements: With Family - Social History Current smoker - smoking cessation education provided: No - Home Medications Home Medications: Ambulatory Orders Medication Instructions Recorded Enalapril Maleate [Vasotec] 5 mg PO DAILY 06/04/16 Levothyroxine [Synthroid] 0.05 mg PO DAILY 06/04/16 Simvastatin [Zocor] 20 mg PO DAILY 06/04/16 Gabapentin [Neurontin] 300 mg PO HS #14 cap 06/09/16 Lorazepam [Ativan] 0.5 mg PO Q12 #28 tab 06/09/16 Vilazodone HCl [Viibryd] 40 mg PO HS #14 tablet 06/09/16 QUEtiapine [SEROquel] 100 mg PO HS #30 tab 07/26/16 Quetiapine Fumarate [Seroquel] 50 mg PO Q12 #60 tablet 07/26/16 Cephalexin [Keflex] 500 mg PO BID #20 capsule 08/15/16 - Allergies Allergies/Adverse Reactions: Allergies Allergy/AdvReac Type Severity Reaction Status Date / Time levofloxacin [From Levaquin] Allergy RASH Verified 06/04/16 11:49 Review of Systems ROS Statement: Except As Marked, All Systems Reviewed And Found Negative Skin: Positive for: Other Physical Exam - Reviewed Nursing Documentation Reviewed: Yes Vital Signs Reviewed: Yes - Physical Exam Appears: Positive for: Well, Non-toxic, No Acute Distress Head Exam: Positive for: ATRAUMATIC, NORMAL INSPECTION, NORMOCEPHALIC Skin: Positive for: Warm. Negative for: Normal Color ((+) right thumb abcess) Eye Exam: Positive for: Normal appearance ENT: Positive for: Normal ENT Inspection Neck: Positive for: Normal, Painless ROM Respiratory: Negative for: Accessory Muscle Use Back: Positive for: Normal Inspection Extremity: Positive for: Normal ROM Neurologic/Psych: Positive for: Alert, Oriented - ECG O2 Sat by Pulse Oximetry: 96 Pulse Ox Interpretation: Normal Disposition - Clinical Impression Clinical Impression: Paronychia - Disposition Disposition: Routine/Home Disposition Time: 17:39 Condition: GOOD Prescriptions: Cephalexin [Keflex] 500 mg PO BID #20 capsule Instructions: Paronychia (ED)
== END 2016-08-15 17:50 | disposition home or self-care (01) ==
LOC: H.ER 17:03
DX: L03.011 Cellulitis of right finger (principal)

== ENCOUNTER 2017-04-06 15:48 | Emergency (ER) | payer MEDICARE ==
[2017-04-06 16:13] VITALS: TEMP 97.6
[2017-04-06 17:09] LABS: BASO # 0.1 K/uL (0.0-0.2); BASO % 1.2 % (0.0-2.0); EOS # 0.2 K/uL (0.0-0.7); EOS % 1.7 % (0.0-4.0); HEMATOCRIT 40.5 % (34.0-47.0); LYMPH # 2.7 K/uL (1.0-4.3); LYMPH % 28.7 % (20.0-40.0); MEAN CELL VOLUME 93.3 fl (81.0-99.0); MEAN CORPUSCULAR HEMOGLOBIN 31.5 pg (27.0-31.0); MEAN CORPUSCULAR HGB CONC 33.8 g/dL (33.0-37.0); MEAN PLATELET VOLUME 8.1 fl (7.2-11.7); MONO # 0.9 K/uL (0.0-0.8); MONO % 9.3 % (0.0-10.0); NEUT # 5.5 K/uL (1.8-7.0); NEUT % 59.1 % (50.0-75.0); NRBC % 0.1 % (0.0-0.0); RED CELL DISTRIBUTION WIDTH 13.4 % (11.5-14.5); WHITE BLOOD COUNT 9.3 K/uL (4.8-10.8)
[2017-04-06 17:19] LABS: ALB/GLOB RATIO 1.6 (1.0-2.1); ALKALINE PHOSPHATASE 52 U/L (38-126); ALT/SGPT 28 U/L (9-52); AST/SGOT 22 U/L (14-36); BILIRUBIN,TOTAL 0.5 mg/dl (0.2-1.3); BLOOD UREA NITROGEN 26 mg/dl (7-17); CALCIUM 9.4 mg/dL (8.4-10.2); CARBON DIOXIDE 29 mmol/L (22-30); CHLORIDE 105 mmol/L (98-107); GFR AFRICAN-AMERICAN > 60; GLUCOSE,RANDOM 98 mg/dL (65-105); POTASSIUM 4.8 MMOL/L (3.6-5.0); SODIUM 142 mmol/l (132-148); TOTAL PROTEIN 6.7 G/DL (6.3-8.2)
--- NOTE | 2017-04-06 18:05 | US ---
PROCEDURE: Right lower extremity venous duplex Doppler. HISTORY: RLE swelling COMPARISON: None available. TECHNIQUE: Common femoral, superficial femoral, popliteal and posterior tibial veins were evaluated. Flow was assessed with color Doppler, compressibility, assessment of phasic flow and augmentation response. FINDINGS: COMMON FEMORAL VEIN: Unremarkable. SUPERFICIAL FEMORAL VEIN: Unremarkable. POPLITEAL VEIN: Unremarkable. POSTERIOR TIBIAL VEIN: Unremarkable. OTHER FINDINGS: None. IMPRESSION: No evidence of deep venous thrombosis in the right lower extremity.
--- NOTE | 2017-04-06 18:18 | ED PDOC ---
HPI: General Adult Time Seen by Provider: 04/06/17 16:14 Chief Complaint (Nursing): Lower Extremity Problem/Injury History Per: Patient Additional Complaint(s): Pt. states for the past week she's had worsening R lower leg swelling without pain. She was evaluated by Dr. Patel today and instructed to come to ED to r/ o DVT. Also reports that she does have SOB along with anxiety daily and has yet to take her evening dose of Ativan. Also states she was seen in [facility] [facility] 3-4 weeks ago for SOB and had multiple tests done and was told that SOB was due to anxiety. Reports she's had anxiety for several years and this SOB is not acute. Denies hx of DVT or PE, palpitations, hemoptysis, fever, cough, chest pain, hx of CHF, orthopnea. Past Medical History Reviewed: Historical Data, Nursing Documentation, Vital Signs Vital Signs: Last Vital Signs Temp 97.6 F 04/06/17 16:10 Pulse 87 04/06/17 16:10 Resp 20 04/06/17 16:10 BP 147/71 04/06/17 16:10 Pulse Ox 94 L 04/06/17 18:23 - Medical History PMH: Anxiety, Bipolar Disorder, Depression, HTN, Hypercholesterolemia, Hypothyroidism Denies: Diabetes, Hepatitis, HIV, Chronic Kidney Disease, Seizures, Sexually Transmitted Disease - Surgical History Surgical History: Cholecystectomy Denies: CABG - Family History Family History: States: Unknown Family Hx - Home Medications Home Medications: Ambulatory Orders Medication Instructions Recorded Enalapril Maleate [Vasotec] 5 mg PO DAILY 06/04/16 Levothyroxine [Synthroid] 0.05 mg PO DAILY 06/04/16 Simvastatin [Zocor] 20 mg PO DAILY 06/04/16 Gabapentin [Neurontin] 300 mg PO HS #14 cap 06/09/16 Lorazepam [Ativan] 0.5 mg PO Q12 #28 tab 06/09/16 Vilazodone HCl [Viibryd] 40 mg PO HS #14 tablet 06/09/16 QUEtiapine [SEROquel] 100 mg PO HS #30 tab 07/26/16 Quetiapine Fumarate [Seroquel] 50 mg PO Q12 #60 tablet 07/26/16 Cephalexin [Keflex] 500 mg PO BID #20 capsule 08/15/16 - Allergies Allergies/Adverse Reactions: Allergies Allergy/AdvReac Type Severity Reaction Status Date / Time levofloxacin [From Levaquin] Allergy RASH Verified 06/04/16 11:49 Review of Systems ROS Statement: Except As Marked, All Systems Reviewed And Found Negative Psych: Positive for: Anxiety Physical Exam - Physical Exam Appears: Positive for: Well, Non-toxic, No Acute Distress Skin: Positive for: Normal Color, Warm. Negative for: Rash Pulses-Dorsalis Pedis (L): 2+ Pulses-Dorsalis Pedis (R): 2+ Extremity: Positive for: Capillary Refill (< 2 seconds of b/l lower extremities) , Other (L lower extremity with non-pitting edema with erythema or tenderness). Negative for: Pedal Edema (b/l) Neurologic/Psych: Positive for: Alert, Oriented - Laboratory Results Result Diagrams: 04/06/17 17:00 04/06/17 17:00 - ECG O2 Sat by Pulse Oximetry: 94 - Progress ED Course And Treament: Labs ordered. Duplex RLE: No evidence of deep venous thrombosis in the right lower extremity. 1814 On re-evaluation, pt calm and cooperative. PT. reports complete relief of SOB and is feeling much better. Call placed to Dr. Patel. 1840 Case d/w Dr. Patel who agrees with care and states pt. can be dc'd. Repeat POX: 96% on RA. Disposition - Clinical Impression Clinical Impression: Leg edema - Patient ED Disposition Is Patient to be Admitted: No - Disposition Disposition: Routine/Home Disposition Time: 18:40 Condition: STABLE Instructions: Leg Edema (ED) Forms: [employer]enda (Yoruba)
[2017-04-06 20:13] VITALS: BP 128/86; PULSE 76; RESP 18; O2SAT 96
--- NOTE | 2017-04-07 09:28 | RAD ---
HISTORY: leg swelling COMPARISON: Chest radiograph dated 07/21/2016. TECHNIQUE: Chest PA and lateral FINDINGS: LUNGS: No active pulmonary disease. PLEURA: No significant pleural effusion identified. No pneumothorax apparent. CARDIOVASCULAR: Atherosclerotic aortic calcifications. Cardiomediastinal silhouette stably enlarged. OSSEOUS STRUCTURES: Unchanged. VISUALIZED UPPER ABDOMEN: Normal. OTHER FINDINGS: Large hiatal hernia. Right upper quadrant surgical clips. IMPRESSION: No active disease. Large hiatal hernia.
--- NOTE | 2017-04-07 12:06 | CARD ---
APPROVED REPORT EKG Measurement Heart [id number] MD [id number] <Conclusion> Normal sinus rhythm Left axis deviation Abnormal ECG
== END 2017-04-06 20:54 | disposition home or self-care (01) ==
LOC: H.ER 15:48
DX: R60.0 Localized edema (principal); E03.9 Hypothyroidism, unspecified; E78.00 Pure hypercholesterolemia, unspecified; F31.9 Bipolar disorder, unspecified; F41.9 Anxiety disorder, unspecified; I10 Essential (primary) hypertension; K44.9 Diaphragmatic hernia without obstruction or gangrene

== ENCOUNTER 2017-10-19 11:59 | Inpatient (IN) | payer MEDICARE ==
[2017-10-19 12:04] VITALS: BMI 30.6
--- NOTE | 2017-10-19 12:32 | ED PDOC ---
HPI:STROKE - Time Time: 12:29 - Historian Historian: Patient, Family, Caregiver - TPA Positive for Contraindication: Yes - Notes: Notes:: Pt was evaluated by Psychiatrist yesterday for the first time who was concerned for "mini stroke". Son states patient has been having slurred speech intermittently X 2 weeks, thought it was due to psych meds. Pt also c/o SOB X 1 week, no CP, no cough. Pt c/o "funny feeling" in head but denies ANTHONY, paresthesias, weakness. NIHSS Stroke Scale - Date/Time Evaluation Performed Date Performed: 10/19/17 Time Performed: 12:25 When Was NIHSS Performed: Baseline - How Severe is the Stroke Level of Consciousness: 0=Alert LOC to Questions: 0=Both comments correct LOC to commands: 0=Obeys both correctly Best Gaze: 0=Normal Visual: 0=No visual loss Facial: 0=Normal Motor Arm - Left: 0=No drift Motor Arm - Right: 0=No drift Motor Leg - Left: 0=No drift Motor Leg - Right: 0=No drift Limb Ataxia: 0=Absent Sensory: 0=Normal Best Language: 0=No aphasia Dysarthia: 0=Normal articulation Extinction & Inattention (Neglect): 0=Normal, no object Score: 0 rTPA Inclusion/Exclusion - Refusal of Treatment Patient Refused Treatment: No - Inclusion Criteria for Altepase Patient is 18 years or Older: Yes The Clinical Diagnosis of Ischemic Stroke That is Causing a Potentially Disabling Neurological Deficit: No Time of Onset is Well Established to be Less Than 270 Minute Before Treatment Would Begin: No Risk/Benefit Discussed With Patient/Family Member Present: No - Warning to TPA With Conditions Condition: Rapid Improvement (Intermittent episodes, asymptomatic at present) Past Medical History Reviewed: Nursing Documentation, Vital Signs Vital Signs: Last Vital Signs Temp 97.9 F 10/19/17 12:04 Pulse 92 H 10/19/17 12:04 Resp 17 10/19/17 12:04 BP 87/55 L 10/19/17 12:04 Pulse Ox 92 L 10/19/17 12:04 - Medical History PMH: Anxiety, Bipolar Disorder, Depression, HTN, Hypercholesterolemia, Hypothyroidism Denies: Diabetes, Hepatitis, HIV, Chronic Kidney Disease, Seizures, Sexually Transmitted Disease - Surgical History Surgical History: Cholecystectomy Denies: CABG - Family History Family History: States: Unknown Family Hx - Home Medications Home Medications: Ambulatory Orders Medication Instructions Recorded Cholecalciferol [Vitamin D 1000 IU] 1,000 unit PO DAILY 10/19/17 Enalapril Maleate [Vasotec] 5 mg PO DAILY 10/19/17 Gabapentin [Neurontin] 100 mg PO Q8 10/19/17 LORazepam [Ativan] 0.5 mg PO DAILY PRN 10/19/17 LORazepam [Ativan] 1 mg PO DAILY 10/19/17 Levothyroxine [Synthroid] 50 mcg PO DAILY 10/19/17 Multivitamin/Iron/Folic Acid 1 tab PO DAILY 10/19/17 [Centrum Complete Multivit Tab] QUEtiapine [Seroquel] 100 mg PO Q12 10/19/17 Simvastatin [Zocor] 20 mg PO HS 10/19/17 - Allergies Allergies/Adverse Reactions: Allergies Allergy/AdvReac Type Severity Reaction Status Date / Time levofloxacin [From Levaquin] Allergy RASH Verified 06/04/16 11:49 Review of Systems Constitutional: Negative for: Fever, Chills Eyes: Negative for: Vision Change Cardiovascular: Negative for: Chest Pain, Palpitations Respiratory: Positive for: Shortness of Breath. Negative for: Cough Gastrointestinal: Negative for: Nausea, Vomiting, Abdominal Pain, Diarrhea Genitourinary Female: Negative for: Dysuria, Hematuria Skin: Negative for: Rash, Lesions Neurological: Positive for: Change in Speech (Intermittent). Negative for: Weakness, Numbness, Incoordination, Confusion, Seizures, Altered Mental Status, Headache, Dizziness Physical Exam - Reviewed Nursing Documentation Reviewed: Yes Vital Signs Reviewed: Yes - Physical Exam Appears: Positive for: Well, No Acute Distress (Speaking full sentences) Head Exam: Positive for: ATRAUMATIC, NORMAL INSPECTION Skin: Positive for: Normal Color, Warm, Dry Eye Exam: Positive for: Normal appearance, EOMI, PERRL Cardiovascular/Chest: Positive for: Regular Rate, Rhythm Respiratory: Positive for: Normal Breath Sounds. Negative for: Rales, Rhonchi, Wheezing Gastrointestinal/Abdominal: Positive for: Normal Exam Extremity: Positive for: Normal ROM Neurologic/Psych: Positive for: Alert, production team manager II-XII, Oriented. Negative for: Motor/Sensory Deficits, Aphasia, Facial Droop - Laboratory Results Result Diagrams: 10/19/17 13:35 10/19/17 13:35 - ECG O2 Sat by Pulse Oximetry: 92 - Physician Consult Information Time Consulting Physican Contacted: 14:35 Physician Contacted: Asael Astudillo Medical Decision Making Medical Decision Makin yo female with intermittent slurred speech and SOB. - labs - EKG - CXR - CT head Accession No. : [id number] Patient Name / ID : BLADIMIR PHAN / [id number] Exam Date : 10/19/2017 13:20:41 ( Approved ) Study Comment : Sex / Age : F / 82Y Creator : Stacey Randle MD Dictator : Stacey Randle MD [employer] : [employer] Registered Nurse : Stacey Randle MD Approver2 : Report Date : 10/19/2017 13:49:21 My Comment : PROCEDURE: CT HEAD WITHOUT CONTRAST. HISTORY: Intermittent slurred speech X 2 weeks COMPARISON: 09/02/2009. TECHNIQUE: Axial computed tomography images were obtained through the head/brain without intravenous contrast. Radiation dose: Total exam DLP = 897.16 mGy-cm. This CT exam was performed using one or more of the following dose reduction techniques: Automated exposure control, adjustment of the mA and/or kV according to patient size, and/or use of iterative reconstruction technique. FINDINGS: HEMORRHAGE: No intracranial hemorrhage. BRAIN: There are mild chronic microangiopathic changes. 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 VENTRICLES: There is mild age-related global parenchymal volume loss and proportionate enlargement of the ventricles and cortical sulci. CALVARIUM: The skull base and calvarium are normal. PARANASAL SINUSES: Predominantly clear. MASTOID AIR CELLS: The right mastoid air cells are underdeveloped. The left mastoid air cells are clear. OTHER FINDINGS: None. IMPRESSION: No acute intracranial abnormality. If there is a persistent focal neurologic deficit and an ongoing clinical concern for acute infarction, an MRI of the brain without intravenous contrast would be a more sensitive modality for evaluation of hyperacute/acute ischemic infarction. Mild chronic microangiopathic changes and mild age-related global parenchymal volume loss. Accession No. : [id number] Patient Name / ID : BLADIMIR PHAN / [id number] Exam Date : 10/19/2017 12:52:28 ( Approved ) Study Comment : Sex / Age : F / 82Y Creator : Stacey Randle MD Dictator : Stacey Randle MD [employer] : [employer] Registered Nurse : Stacey Randle MD Approver2 : Report Date : 10/19/2017 13:33:12 My Comment : HISTORY: Code Stroke COMPARISON: 04/06/2017. FINDINGS: LUNGS: The lungs are hyperinflated and there is peribronchial thickening with chronic changes in both lungs. No focal consolidation. PLEURA: No significant pleural effusion identified, no pneumothorax apparent. CARDIOVASCULAR: Normal. OSSEOUS STRUCTURES: No significant abnormalities. VISUALIZED UPPER ABDOMEN: Normal. OTHER FINDINGS: There is redemonstration of a large hiatal hernia with compressive atelectasis in the right lower lobe. IMPRESSION: No active pulmonary disease. COPD. Large hiatal hernia. Disposition - Clinical Impression Clinical Impression: TIA (transient ischemic attack) - Patient ED Disposition Is Patient to be Admitted: Yes - Disposition Disposition Time: 14:32 Condition: STABLE - Pt Status Changed To: Hospital Disposition Of: Inpatient - Admit Certification Admit to Inpatient:: After my assessment, the patient will require hospitalization for at least two midnights. This is because of the severity of symptoms shown, intensity of services needed, and/or the medical risk in this patient being treated as an outpatient. - POA Present On Arrival: None
--- NOTE | 2017-10-19 13:34 | RAD ---
HISTORY: Code Stroke COMPARISON: 04/06/2017. FINDINGS: LUNGS: The lungs are hyperinflated and there is peribronchial thickening with chronic changes in both lungs. No focal consolidation. PLEURA: No significant pleural effusion identified, no pneumothorax apparent. CARDIOVASCULAR: Normal. OSSEOUS STRUCTURES: No significant abnormalities. VISUALIZED UPPER ABDOMEN: Normal. OTHER FINDINGS: There is redemonstration of a large hiatal hernia with compressive atelectasis in the right lower lobe. IMPRESSION: No active pulmonary disease. COPD. Large hiatal hernia.
--- NOTE | 2017-10-19 13:51 | CT ---
PROCEDURE: CT HEAD WITHOUT CONTRAST. HISTORY: Intermittent slurred speech X 2 weeks COMPARISON: 09/02/2009. TECHNIQUE: Axial computed tomography images were obtained through the head/brain without intravenous contrast. Radiation dose: Total exam DLP = 897.16 mGy-cm. This CT exam was performed using one or more of the following dose reduction techniques: Automated exposure control, adjustment of the mA and/or kV according to patient size, and/or use of iterative reconstruction technique. FINDINGS: HEMORRHAGE: No intracranial hemorrhage. BRAIN: There are mild chronic microangiopathic changes. 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 VENTRICLES: There is mild age-related global parenchymal volume loss and proportionate enlargement of the ventricles and cortical sulci. CALVARIUM: The skull base and calvarium are normal. PARANASAL SINUSES: Predominantly clear. MASTOID AIR CELLS: The right mastoid air cells are underdeveloped. The left mastoid air cells are clear. OTHER FINDINGS: None. IMPRESSION: No acute intracranial abnormality. If there is a persistent focal neurologic deficit and an ongoing clinical concern for acute infarction, an MRI of the brain without intravenous contrast would be a more sensitive modality for evaluation of hyperacute/acute ischemic infarction. Mild chronic microangiopathic changes and mild age-related global parenchymal volume loss.
[2017-10-19 13:53] LABS: BASO # 0.1 K/uL (0.0-0.2); EOS # 0.1 K/uL (0.0-0.7); HEMOGLOBIN 13.2 g/dL (12.0-16.0); LYMPH # 2.4 K/uL (1.0-4.3); LYMPH % 30.8 % (20.0-40.0); MEAN CELL VOLUME 91.4 fl (81.0-99.0); MEAN CORPUSCULAR HGB CONC 33.9 g/dL (33.0-37.0); MONO # 0.4 K/uL (0.0-0.8); MONO % 4.7 % (0.0-10.0); NEUT # 4.9 K/uL (1.8-7.0); NEUT % 62.5 % (50.0-75.0); NRBC % 0.1 % (0.0-0.0); RBC 4.26 Mil/uL (3.80-5.20); RED CELL DISTRIBUTION WIDTH 14.3 % (11.5-14.5); WHITE BLOOD COUNT 7.9 K/uL (4.8-10.8)
[2017-10-19 13:59] LABS: ALB/GLOB RATIO 1.3 (1.0-2.1); ALBUMIN 3.6 g/dL (3.5-5.0); ALT/SGPT 28 U/L (9-52); AST/SGOT 22 U/L (14-36); BLOOD UREA NITROGEN 27 mg/dl (7-17); GFR AFRICAN-AMERICAN > 60; GFR NON-AFRICAN AMERICAN 53; HDL CHOLESTEROL 48 MG/DL (30-70); PARTIAL THROMBOPLASTIN TIME 27.3 Seconds (25.6-37.1); PROTHROMBIN TIME 10.8 Seconds (9.8-13.1)
[2017-10-19 14:13] LABS: LDL CHOLESTEROL 53 mg/dL (0-129)
[2017-10-19] MEDS ORDERED: Iodixanol 320 MG/ML 100 ML BOTTLE IV ONE (14:48)
[2017-10-19] MEDS ORDERED: Sodium Chloride 0.9% 50 ML IV ONE (14:49)
--- NOTE | 2017-10-19 15:30 | CT ---
PROCEDURE: HISTORY: Dyspnea COMPARISON: 07/20/2007. CT angiogram documenting bilateral pulmonary emboli. TECHNIQUE: Axial computed tomography images were obtained of the chest in the pulmonary arterial phase of enhancement. Coronal and sagittal reformatted images were created and reviewed. Intravenous contrast dose: 99 cc Visipaque 320 Mean Hounsfield unit values in the main pulmonary artery: 304.03 Radiation dose: Total exam DLP = 446.14 mGy-cm. This CT exam was performed using one or more of the following dose reduction techniques: Automated exposure control, adjustment of the mA and/or kV according to patient size, and/or use of iterative reconstruction technique. FINDINGS: PULMONARY ARTERIES: Resolution of pulmonary emboli identified on the previous examination. No acute pulmonary embolism. AORTA: No acute findings. No thoracic aortic aneurysm. LUNGS: All lingular atelectasis. Unremarkable. No nodule, mass or pulmonary consolidation. PLEURAL SPACES: Unremarkable. No effusion or pneuomothorax. HEART: Unremarkable. No cardiomegaly. No significant pericardial effusion. LYMPH NODES: No lymphadenopathy. BONES, CHEST WALL: Unremarkable. No fracture or destructive lesion OTHER FINDINGS: Large hiatal hernia. Associated dilatation the esophagus. Similar findings seen on the prior study. IMPRESSION: Unremarkable CT pulmonary angiogram. No pulmonary embolus.
[2017-10-19] MEDS ORDERED: Pneumococcal 23-Valent Vaccine IM ONE (19:00)
[2017-10-19 19:12] LABS: IRON 45 ug/dL (37-170)
[2017-10-19 19:21] LABS: % IRON SATURATION 14 % (20-55); TOTAL IRON BINDING CAPACITY 324 ug/dL (250-450)
[2017-10-19] MEDS: Enoxaparin 40 mg Syringe SC SCH (21:20)
[2017-10-19 23:51] LABS: FOLATE > 20.0 ng/mL
[2017-10-20 06:07] VITALS: TEMP 97.9
[2017-10-20] MEDS ORDERED: Levothyroxine 50 MCG TAB PO SCH (06:30)
[2017-10-20 07:56] VITALS: RESP 20
[2017-10-20] MEDS: Enoxaparin 40 mg Syringe SC SCH (08:18)
[2017-10-20] MEDS ORDERED: Multivitamin With Minerals Tab PO SCH (09:00)
[2017-10-20] MEDS ORDERED: Cholecalciferol 1,000 INTLU TAB PO SCH (09:00)
[2017-10-20] MEDS ORDERED: Pantoprazole 40 mg EC Tab PO SCH (09:15)
--- NOTE | 2017-10-20 10:26 | MRI ---
PROCEDURE: MRI BRAIN WITHOUT CONTRAST HISTORY: Intermittent slurred speech COMPARISON: Noncontrast head CT 10/19/2017. TECHNIQUE: Multiplanar, multisequence MR images of the brain were obtained without intravenous contrast enhancement. FINDINGS: HEMORRHAGE: None DWI: No evidence of an acute or early subacute infarction. BRAIN PARENCHYMA: Good corticomedullary differentiation is seen. Diffuse expansion of the ventriculosulcal and cisternal spaces is again seen appreciated with white matter lucency compatible with diffuse cerebral atrophy and chronic microangiopathy. No suspicious extra-axial fluid collection is identified and the midline brain anatomy appears grossly nonfocal as imaged. There is no mass effect throughout. VENTRICLES: Unremarkable. No hydrocephalus. CRANIUM: Unremarkable. ORBITS: Grossly unremarkable. PARANASAL SINUSES/MASTOIDS: Hypodevelopment of right mastoid air cells reiterated. VASCULAR SYSTEM: Skull base flow voids intact. OTHER FINDINGS: None. IMPRESSION: Age related neuro degenerative changes are identified without definite acute or subacute brain infarction, mass effect or hydrocephalus. No suspicious extra-axial collection appreciated. No significant interval change as compared prior head CT 10/19/2017 1:20 p.m.. Concordant preliminary report from [facility], 10/19/2017.
--- NOTE | 2017-10-20 11:03 | CARD ---
APPROVED REPORT EKG Measurement Heart [id number] <Conclusion> Sinus rhythm with premature atrial complexes Left axis deviation Abnormal ECG
--- NOTE | 2017-10-20 11:15 | CP.PCM.HP ---
History of Present Illness - History of Present Illness History of Present Illness: Pt has a long hx of psychiatric disorders. The day previous the admission she was seen by a new was Psychiatrist for the first time. She who was concerned for TIA. She deferred to go to ER the day of the visit. She presented in ER yesterday with same c/o of paresthesia and slurred speech. Today she looks in her usual status since my first visit. She moves all limbs. The w/u at the present time is negative for any neurology deficit. Will follow neuro consult if she cleared will dc home. Present on Admission - Present on Admission Any Indicators Present on Admission: No Review of Systems - Constitutional Constitutional: As Per HPI - EENT Eyes: As Per HPI - Cardiovascular Cardiovascular: As Per HPI - Respiratory Respiratory: As Per HPI - Gastrointestinal Gastrointestinal: As Per HPI - Musculoskeletal Musculoskeletal: As Per HPI - Neurological Neurological: As Per HPI - Psychiatric Psychiatric: Anxiety - Endocrine Endocrine: As Per HPI Past Patient History - Infectious Disease Hx of Infectious Diseases: None - Tetanus Immunizations Tetanus Immunization: Unknown - Past Social History Smoking Status: Unknown If Ever Smoked - CARDIAC Hx Cardiac Disorders: Yes - PULMONARY Hx Tuberculosis: No - NEUROLOGICAL Hx Seizures: No - HEENT Hx HEENT Problems: No - RENAL Hx Chronic Kidney Disease: No - ENDOCRINE/METABOLIC Hx Hypothyroidism: Yes - HEMATOLOGICAL/ONCOLOGICAL Hx Human Immunodeficiency Virus (HIV): No - INTEGUMENTARY Hx Dermatological Problems: No - MUSCULOSKELETAL/RHEUMATOLOGICAL Hx Musculoskeletal Disorders: Yes - GASTROINTESTINAL Hx Gastrointestinal Disorders: Yes Hx Constipation: Yes - GENITOURINARY/GYNECOLOGICAL Hx Sexually Transmitted Disorders: No - PSYCHIATRIC Hx Psychophysiologic Disorder: Yes - SURGICAL HISTORY Hx Cholecystectomy: Yes Hx Coronary Artery Bypass Graft: No - ANESTHESIA Hx Anesthesia: Yes Hx Anesthesia Reactions: No Meds Allergies/Adverse Reactions: Allergies Allergy/AdvReac Type Severity Reaction Status Date / Time levofloxacin [From Levaquin] Allergy RASH Verified 06/04/16 11:49 Physical Exam - Constitutional Appears: Non-toxic - Head Exam Head Exam: ATRAUMATIC, NORMAL INSPECTION, NORMOCEPHALIC - Eye Exam Eye Exam: Normal appearance - ENT Exam ENT Exam: Mucous Membranes Moist - Neck Exam Neck exam: Positive for: Normal Inspection - Respiratory Exam Respiratory Exam: Clear to Auscultation Bilateral - Cardiovascular Exam Cardiovascular Exam: REGULAR RHYTHM, +S1, +S2 - GI/Abdominal Exam GI & Abdominal Exam: Normal Bowel Sounds - Extremities Exam Extremities exam: Positive for: normal inspection - Back Exam Back exam: NORMAL INSPECTION - Neurological Exam Neurological exam: Alert, CN II-XII Intact, Normal Gait, Oriented x3, Reflexes Normal - Psychiatric Exam Psychiatric exam: Anxious - Skin Skin Exam: Normal Color Results - Vital Signs Recent Vital Signs: Last Vital Signs Temp 97.9 F 10/20/17 07:56 Pulse 73 10/20/17 07:56 Resp 20 10/20/17 07:56 BP 134/79 10/20/17 07:56 Pulse Ox 95 10/20/17 07:56 - Labs Result Diagrams: 10/19/17 13:35 10/19/17 13:35 Labs: Laboratory Results - last 24 hr 10/19/17 10/19/17 10/19/17 12:49 13:35 13:35 WBC 7.9 RBC 4.26 Hgb 13.2 Hct 38.9 MCV 91.4 MCH 31.0 MCHC 33.9 RDW 14.3 Plt Count 226 MPV 9.0 Neut % (Auto) 62.5 Lymph % (Auto) 30.8 Colbert % (Auto) 4.7 Eos % (Auto) 1.0 Baso % (Auto) 1.0 Neut # (Auto) 4.9 Lymph # (Auto) 2.4 Colbert # (Auto) 0.4 Eos # (Auto) 0.1 Baso # (Auto) 0.1 ESR PT INR APTT D-Dimer, Quantitative Sodium 140 Potassium 4.2 Chloride 105 Carbon Dioxide 27 Anion Gap 12 BUN 27 H Creatinine 1.0 Est GFR ( Amer) > 60 Est GFR (Non-Af Amer) 53 POC Glucose (mg/dL) 171 H Random Glucose 161 H Calcium 9.0 Iron TIBC % Saturation Total Bilirubin 0.7 AST 22 ALT 28 Alkaline Phosphatase 47 Troponin I < 0.0120 Total Protein 6.3 Albumin 3.6 Globulin 2.7 Albumin/Globulin Ratio 1.3 Triglycerides 94 Cholesterol 129 LDL Cholesterol Direct 53 HDL Cholesterol 48 Folate TSH 3rd Generation RPR Blood Type Blood Type Confirm Antibody Screen BBK History Checked 10/19/17 10/19/17 10/19/17 13:35 13:35 14:00 WBC RBC Hgb Hct MCV MCH MCHC RDW Plt Count MPV Neut % (Auto) Lymph % (Auto) Colbert % (Auto) Eos % (Auto) Baso % (Auto) Neut # (Auto) Lymph # (Auto) Colbert # (Auto) Eos # (Auto) Baso # (Auto) ESR PT 10.8 INR 1.0 APTT 27.3 D-Dimer, Quantitative 328 H Sodium Potassium Chloride Carbon Dioxide Anion Gap BUN Creatinine Est GFR ( Amer) Est GFR (Non-Af Amer) POC Glucose (mg/dL) Random Glucose Calcium Iron TIBC % Saturation Total Bilirubin AST ALT Alkaline Phosphatase Troponin I Total Protein Albumin Globulin Albumin/Globulin Ratio Triglycerides Cholesterol LDL Cholesterol Direct HDL Cholesterol Folate TSH 3rd Generation RPR Blood Type AB POSITIVE Blood Type Confirm AB POSITIVE Antibody Screen Negative BBK History Checked No verified bt 10/19/17 10/19/17 10/19/17 17:55 17:55 17:55 WBC RBC Hgb Hct MCV MCH MCHC RDW Plt Count MPV Neut % (Auto) Lymph % (Auto) Colbert % (Auto) Eos % (Auto) Baso % (Auto) Neut # (Auto) Lymph # (Auto) Colbert # (Auto) Eos # (Auto) Baso # (Auto) ESR 17 PT INR APTT D-Dimer, Quantitative Sodium Potassium Chloride Carbon Dioxide Anion Gap BUN Creatinine Est GFR ( Amer) Est GFR (Non-Af Amer) POC Glucose (mg/dL) Random Glucose Calcium Iron TIBC % Saturation Total Bilirubin AST ALT Alkaline Phosphatase Troponin I Total Protein Albumin Globulin Albumin/Globulin Ratio Triglycerides Cholesterol LDL Cholesterol Direct HDL Cholesterol Folate > 20.0 TSH 3rd Generation 1.28 RPR Nonreactive Blood Type Blood Type Confirm Antibody Screen BBK History Checked 10/19/17 17:55 WBC RBC Hgb Hct MCV MCH MCHC RDW Plt Count MPV Neut % (Auto) Lymph % (Auto) Colbert % (Auto) Eos % (Auto) Baso % (Auto) Neut # (Auto) Lymph # (Auto) Colbert # (Auto) Eos # (Auto) Baso # (Auto) ESR PT INR APTT D-Dimer, Quantitative Sodium Potassium Chloride Carbon Dioxide Anion Gap BUN Creatinine Est GFR ( Amer) Est GFR (Non-Af Amer) POC Glucose (mg/dL) Random Glucose Calcium Iron 45 TIBC 324 % Saturation 14 L Total Bilirubin AST ALT Alkaline Phosphatase Troponin I Total Protein Albumin Globulin Albumin/Globulin Ratio Triglycerides Cholesterol LDL Cholesterol Direct HDL Cholesterol Folate TSH 3rd Generation RPR Blood Type Blood Type Confirm Antibody Screen BBK History Checked Assessment & Plan (1) TIA (transient ischemic attack) Status: Ruled-out (2) Anxiety Status: Chronic (3) Bipolar disorder Status: Chronic (4) Depression Status: Chronic (5) HTN (hypertension) Status: Chronic (6) Hypothyroid Status: Chronic - Assessment and Plan (Free Text) Plan: Will follow neuro consult At present in her usual status of health
[2017-10-20 12:13] VITALS: BP 131/81; PULSE 71
--- NOTE | 2017-10-20 12:56 | US ---
PROCEDURE: Duplex ultrasound of the carotid and vertebral arteries. HISTORY: slurred speech, TIA COMPARISON: None available. TECHNIQUE: Grayscale and duplex Doppler evaluation of the cervical carotid and vertebral arteries were performed. The common carotid, carotid bifurcations and cervical ICA and proximal ECA were evaluated. The vertebral arteries were evaluated for gross patency and direction. FINDINGS: RIGHT CAROTID ARTERIES: Common Carotid Artery: Normal. Maximal flow velocity of 59.2 cm/s. Carotid Bifurcation: Normal. Internal Carotid Artery:tortuous ICA Maximal flow velocity of 100.3 cm/s. External Carotid Artery (proximal branches): Normal. Maximal flow velocity of 71.6 cm/s. ICA/CCA Ratio: 1.8 LEFT CAROTID ARTERIES: Common Carotid Artery: Normal. Maximal flow velocity of 82.8 cm/s. Carotid Bifurcation: Normal. Internal Carotid Artery:tortuous ICA Maximal flow velocity of 1003.8 cm/s. External Carotid Artery (proximal branches): Normal. Maximal flow velocity of 64.5 cm/s. ICA/CCA Ratio: 1.7 VERTEBRAL ARTERIES: Right Vertebral Artery: Patent. Antegrade flow. Left Vertebral Artery: Patent. Antegrade flow. OTHER FINDINGS: None. IMPRESSION: Right ICA degree of stenosis: Less than 50% Left ICA degree of stenosis: Less than 50% Reference Internal Carotid Artery (ICA) Peak Systolic Velocity (PSV) for above: 1. Less than 50% stenosis less than 125 cm/s peak systolic velocity 2. 50-69% stenosis 125-230cm/s peak systolic velocity 3. Greater than 70% but less than near occlusion greater than 230 cm/s peak systolic velocity
--- NOTE | 2017-10-20 13:57 | CP.PCM.CON ---
History of Present Illness - History of Present Illness History of Present Illness: Mrs. Peralta is an 82-year-old woman with a past medical history of HTN, DM, dementia, depression and refractory anxiety, who was seen by a new psychiatrist yesterday at which point, the patient's son told the psychiatrist that his mother has intermittent slurred speech, so the patient was sent to the hospital for evaluation of possible TIA. So far, all imaging has been negative. The patient has a breathing pattern that appears to be exacerbated by anxiety. She has panic attacks and shortness of breath. Otherwise, she is neurologically intact and has no focal weakness. Speech is clear and coherent. She does not have any aphasia. MRI of the brain did not show any concerning findings other than age related changes and scattered T2 hyperintensities consistent with small vessel disease. Review of Systems - Review of Systems All systems: reviewed and no additional remarkable complaints except Past Patient History - Infectious Disease Hx of Infectious Diseases: None - Tetanus Immunizations Tetanus Immunization: Unknown - Past Social History Smoking Status: Unknown If Ever Smoked - CARDIAC Hx Cardiac Disorders: Yes - PULMONARY Hx Tuberculosis: No - NEUROLOGICAL Hx Seizures: No - HEENT Hx HEENT Problems: No - RENAL Hx Chronic Kidney Disease: No - ENDOCRINE/METABOLIC Hx Hypothyroidism: Yes - HEMATOLOGICAL/ONCOLOGICAL Hx Human Immunodeficiency Virus (HIV): No - INTEGUMENTARY Hx Dermatological Problems: No - MUSCULOSKELETAL/RHEUMATOLOGICAL Hx Musculoskeletal Disorders: Yes - GASTROINTESTINAL Hx Gastrointestinal Disorders: Yes Hx Constipation: Yes - GENITOURINARY/GYNECOLOGICAL Hx Sexually Transmitted Disorders: No - PSYCHIATRIC Hx Psychophysiologic Disorder: Yes - SURGICAL HISTORY Hx Cholecystectomy: Yes Hx Coronary Artery Bypass Graft: No - ANESTHESIA Hx Anesthesia: Yes Hx Anesthesia Reactions: No Meds Allergies/Adverse Reactions: Allergies Allergy/AdvReac Type Severity Reaction Status Date / Time levofloxacin [From Levaquin] Allergy RASH Verified 06/04/16 11:49 - Medications Medications: Current Medications Aspirin (Aspirin Chewable) 81 mg PO DAILY [facility] Last Admin: 10/20/17 11:10 Dose: 81 mg Atorvastatin Calcium (Lipitor) 10 mg PO HS [facility] Last Admin: 10/19/17 22:00 Dose: 10 mg Cholecalciferol (Vitamin D) 1,000 intlu PO DAILY [facility] Last Admin: 10/20/17 08:19 Dose: 1,000 intlu Enalapril Maleate (Vasotec) 5 mg PO DAILY [facility] Last Admin: 10/20/17 08:19 Dose: 5 mg Enoxaparin Sodium (Lovenox) 40 mg SC DAILY [facility] PRN Reason: Protocol Last Admin: 10/20/17 08:18 Dose: 40 mg Gabapentin (Neurontin) 100 mg PO Q8 [facility] Last Admin: 10/20/17 08:18 Dose: 100 mg Levothyroxine Sodium (Synthroid) 50 mcg PO DAILY@0630 [facility] Last Admin: 10/20/17 06:06 Dose: 50 mcg Lorazepam (Ativan) 0.5 mg PO DAILY PRN PRN Reason: Anxiety Last Admin: 10/20/17 13:18 Dose: 0.5 mg Lorazepam (Ativan) 1 mg PO DAILY [facility] Last Admin: 10/20/17 08:17 Dose: 1 mg Multivitamins/Minerals (Therapeutic-M Tab) 1 tab PO DAILY [facility] Last Admin: 10/20/17 08:18 Dose: 1 tab Quetiapine Fumarate (Seroquel) 100 mg PO Q12 [facility] Last Admin: 10/20/17 08:18 Dose: 100 mg Physical Exam - Neurological Exam Neurological exam: Alert, CN II-XII Intact, Normal Gait, Oriented x3, Reflexes Normal - Psychiatric Exam Psychiatric exam: Anxious, Depressed Results - Vital Signs Recent Vital Signs: Last Vital Signs Temp 97.9 F 10/20/17 12:12 Pulse 71 10/20/17 12:12 Resp 20 10/20/17 12:12 BP 131/81 10/20/17 12:12 Pulse Ox 96 10/20/17 12:12 - Labs Result Diagrams: 10/19/17 13:35 10/19/17 13:35 Labs: Laboratory Results - last 24 hr 10/19/17 10/19/17 10/19/17 13:35 13:35 13:35 WBC 7.9 RBC 4.26 Hgb 13.2 Hct 38.9 MCV 91.4 MCH 31.0 MCHC 33.9 RDW 14.3 Plt Count 226 MPV 9.0 Neut % (Auto) 62.5 Lymph % (Auto) 30.8 Graves % (Auto) 4.7 Eos % (Auto) 1.0 Baso % (Auto) 1.0 Neut # (Auto) 4.9 Lymph # (Auto) 2.4 Graves # (Auto) 0.4 Eos # (Auto) 0.1 Baso # (Auto) 0.1 ESR PT 10.8 INR 1.0 APTT 27.3 D-Dimer, Quantitative 328 H Sodium 140 Potassium 4.2 Chloride 105 Carbon Dioxide 27 Anion Gap 12 BUN 27 H Creatinine 1.0 Est GFR ( Amer) > 60 Est GFR (Non-Af Amer) 53 Random Glucose 161 H Calcium 9.0 Iron TIBC % Saturation Total Bilirubin 0.7 AST 22 ALT 28 Alkaline Phosphatase 47 Troponin I < 0.0120 Total Protein 6.3 Albumin 3.6 Globulin 2.7 Albumin/Globulin Ratio 1.3 Triglycerides 94 Cholesterol 129 LDL Cholesterol Direct 53 HDL Cholesterol 48 Folate TSH 3rd Generation RPR Blood Type Blood Type Confirm Antibody Screen 10/19/17 10/19/17 10/19/17 13:35 14:00 17:55 WBC RBC Hgb Hct MCV MCH MCHC RDW Plt Count MPV Neut % (Auto) Lymph % (Auto) Graves % (Auto) Eos % (Auto) Baso % (Auto) Neut # (Auto) Lymph # (Auto) Graves # (Auto) Eos # (Auto) Baso # (Auto) ESR PT INR APTT D-Dimer, Quantitative Sodium Potassium Chloride Carbon Dioxide Anion Gap BUN Creatinine Est GFR ( Amer) Est GFR (Non-Af Amer) Random Glucose Calcium Iron TIBC % Saturation Total Bilirubin AST ALT Alkaline Phosphatase Troponin I Total Protein Albumin Globulin Albumin/Globulin Ratio Triglycerides Cholesterol LDL Cholesterol Direct HDL Cholesterol Folate TSH 3rd Generation RPR Nonreactive Blood Type AB POSITIVE Blood Type Confirm AB POSITIVE Antibody Screen Negative 10/19/17 10/19/17 10/19/17 17:55 17:55 17:55 WBC RBC Hgb Hct MCV MCH MCHC RDW Plt Count MPV Neut % (Auto) Lymph % (Auto) Graves % (Auto) Eos % (Auto) Baso % (Auto) Neut # (Auto) Lymph # (Auto) Graves # (Auto) Eos # (Auto) Baso # (Auto) ESR 17 PT INR APTT D-Dimer, Quantitative Sodium Potassium Chloride Carbon Dioxide Anion Gap BUN Creatinine Est GFR ( Amer) Est GFR (Non-Af Amer) Random Glucose Calcium Iron 45 TIBC 324 % Saturation 14 L Total Bilirubin AST ALT Alkaline Phosphatase Troponin I Total Protein Albumin Globulin Albumin/Globulin Ratio Triglycerides Cholesterol LDL Cholesterol Direct HDL Cholesterol Folate > 20.0 TSH 3rd Generation 1.28 RPR Blood Type Blood Type Confirm Antibody Screen Assessment & Plan (1) Anxiety disorder Assessment and Plan: The intermittent slurred speech could be due to anxiety or the medications she is on for anxiety. TIA work-up is negative. No further recommendations. If the patient has refractory depression/anxiety, ketamine may be an option. I discussed this with the patient's son and he said he would mention it to Dr. Pugh, the new psychiatrist. Status: Chronic (2) Bipolar 1 disorder Status: Chronic Priority: Medium
[2017-10-23 14:44] VITALS: O2SAT 92
== END 2017-10-20 14:09 | disposition home or self-care (01) | DRG 880 ==
LOC: H.ER 11:59 → H.ERHOLD 14:32 → H.TEL 16:46
PROVIDERS: ADMIT Internal Medicine; ATTEND Internal Medicine
DX: F41.9 Anxiety disorder, unspecified (principal); F41.0 Panic disorder [episodic paroxysmal anxiety]; F31.9 Bipolar disorder, unspecified; I10 Essential (primary) hypertension; J44.9 Chronic obstructive pulmonary disease, unspecified; K44.9 Diaphragmatic hernia without obstruction or gangrene; Z90.49 Acquired absence of other specified parts of digestive tract; F45.9 Somatoform disorder, unspecified; K59.00 Constipation, unspecified; Z79.899 Other long term (current) drug therapy; R47.81 Slurred speech; E03.9 Hypothyroidism, unspecified; E11.9 Type 2 diabetes mellitus without complications; E78.00 Pure hypercholesterolemia, unspecified; F03.90 Unspecified dementia, unspecified severity, without behavioral disturbance, psychotic disturbance, mood disturbance, and anxiety; Z88.1 Allergy status to other antibiotic agents

== ENCOUNTER 2017-11-10 13:56 | Inpatient (IN) | payer MEDICARE ==
[2017-11-10 13:56] VITALS: BMI 30.6
--- NOTE | 2017-11-10 15:00 | ED PDOC ---
HPI: SOB/CHF/COPD Time Seen by Provider: 11/10/17 14:00 Chief Complaint (Nursing): Shortness Of Breath Chief Complaint (Provider): SOB/anxiety History Per: Patient History/Exam Limitations: no limitations Onset/Duration Of Symptoms: Hrs, Sudden Onset Current Symptoms Are (Timing): Better Initiating Event: Other (anxiety) Current Respiratory Medications: None Pain Scale Rating Of: 0 Associated Symptoms: Anxiety. denies: Fever, Chills, Sweating, Chest Pain, Bloody Cough, Productive Cough, Heart Racing, Leg/Calf Pain, Ankle/Leg Swelling , Dizziness, Light-headedness, Tingling In Hands Or Face, Musle Spasms In Hands Or Feet Similar Symptoms Previously: yes Recently: Seen In ED Additional History Per: Patient Additional Complaint(s): A 82 yo f with PMH of HTN, Bipolar, Anxiety, depression present to ED due to SOB after she left the [facility] clinic. Pt state that she was sitting in the waiting room of [facility] clinic and start feeling anxious and SOB. She state that it started all the sudden with no provoking factor. Pt state that she had these symptom in the past and when ever she comes to the hospital all the extensive test are negative. Pt denies any fever, dizziness, headache, nausea, vomiting, chest pain , abdominal pain, diarrhea, polyuria, dysuria, no calf pain, or any extremity pain. pt denies trauma, fall or LOC, bed bound. Primary care doctor: [facility] PMH HTN, Bipolar, anxiety, depression PSH: Appendectomy social: limit exercise, never smoke or drink Past Medical History Reviewed: Historical Data, Nursing Documentation, Vital Signs Vital Signs: Last Vital Signs Temp 98 F 11/10/17 14:00 Pulse 82 11/10/17 14:00 Resp 18 11/10/17 14:50 BP 136/80 11/10/17 14:00 Pulse Ox 94 L 11/10/17 16:12 - Medical History PMH: Anxiety, Bipolar Disorder, Depression, HTN, Hypercholesterolemia, Hypothyroidism Denies: Diabetes, Hepatitis, HIV, Chronic Kidney Disease, Seizures, Sexually Transmitted Disease - Surgical History Surgical History: Cholecystectomy Denies: CABG - Family History Family History: States: Unknown Family Hx - Home Medications Home Medications: Ambulatory Orders Medication Instructions Recorded Cholecalciferol [Vitamin D 1000 IU] 1,000 unit PO DAILY 10/19/17 Enalapril Maleate [Vasotec] 5 mg PO DAILY 10/19/17 Gabapentin [Neurontin] 100 mg PO Q8 10/19/17 LORazepam [Ativan] 0.5 mg PO DAILY PRN 10/19/17 LORazepam [Ativan] 1 mg PO DAILY 10/19/17 Levothyroxine [Synthroid] 50 mcg PO DAILY 10/19/17 Multivitamin/Iron/Folic Acid 1 tab PO DAILY 10/19/17 [Centrum Complete Multivit Tab] QUEtiapine [Seroquel] 100 mg PO Q12 10/19/17 Simvastatin [Zocor] 20 mg PO HS 10/19/17 - Allergies Allergies/Adverse Reactions: Allergies Allergy/AdvReac Type Severity Reaction Status Date / Time levofloxacin [From Levaquin] Allergy RASH Verified 11/10/17 14:00 Curb-65 Severity Score - CURB-65 Severity Score Confusion: No Bun >19mg/dl (>7mmol/L): No Respiratory Rate greater than/equal to 30: No Systolic BP <90 or Diastolic BP less than/equal 60mmHg: No Age >64: Yes Curb-65 Score: 1 Percentage 30-day mortality: 2.7% Wells Criteria for PE - Wells Criteria for Pulmonary Embolism Clinical Signs and Symptoms of DVT: No P.E is #1 Diagnosis, or Equally Likely: No Heart Rate >100: No Immobilization at least 3 days;Surgery previous 4 weeks: No Previous, objectively diagnosed PE or DVT: No Hemoptysis: No Total Score: 0 Review of Systems ROS Statement: Except As Marked, All Systems Reviewed And Found Negative Constitutional: Negative for: Fever, Chills, Sweats Eyes: Negative for: Pain Cardiovascular: Negative for: Chest Pain, Palpitations Respiratory: Positive for: Shortness of Breath. Negative for: Cough, Sputum Gastrointestinal: Negative for: Nausea, Vomiting, Abdominal Pain, Diarrhea Genitourinary Female: Negative for: Dysuria, Frequency Musculoskeletal: Negative for: Neck Pain, Shoulder Pain, Arm Pain Neurological: Negative for: Weakness, Numbness Psych: Positive for: Anxiety. Negative for: Depression Physical Exam - Reviewed Nursing Documentation Reviewed: Yes Vital Signs Reviewed: Yes - Physical Exam Appears: Positive for: Well, Non-toxic, No Acute Distress Head Exam: Positive for: ATRAUMATIC, NORMAL INSPECTION, NORMOCEPHALIC Skin: Positive for: Normal Color, Warm, Dry Eye Exam: Positive for: Normal appearance ENT: Positive for: Normal ENT Inspection Neck: Positive for: Normal Cardiovascular/Chest: Positive for: Regular Rate, Rhythm, Chest Non Tender Respiratory: Positive for: Normal Breath Sounds. Negative for: Decreased Breath Sounds, Accessory Muscle Use, Crackles, Rales, Rhonchi, Stridor Gastrointestinal/Abdominal: Positive for: Normal Exam, Bowel Sounds, Soft. Negative for: Tenderness Back: Positive for: Normal Inspection Extremity: Positive for: Normal ROM, Swelling (right leg swellin no pedal edema) . Negative for: Calf Tenderness Lymphatic: Positive for: Normal Exam Neurologic/Psych: Positive for: Alert, student specialist II-XII, Oriented, Mood/Affect. Negative for: Motor/Sensory Deficits, Facial Droop - Laboratory Results Result Diagrams: 11/10/17 15:10 11/10/17 15:10 - ECG O2 Sat by Pulse Oximetry: 94 Medical Decision Making Medical Decision Making: Time 14:30 Initial assesment: 82 yo female with SOB most likely due to anxiety attack EKG: regular rate and rhythm no tachycardia, no ST Changes, no [id number] patern Left axis deviation Plan: F/O vitals ABG CBC BMP Chest xray Time 15:36 Re-evaluation RR: 20 OX saturaion 94 on room air Pulse 82 temp: 98 bp 136/80 CBC is within normal limit no abnormalities BMP pending Chest x ray R lower infiltrate is seen ABG: PO2 55L, AG total CO2 29.8H, ABG o2 sat 94.3L Plan Admit patient to floor Call Dr Donnelly Disposition - Disposition Forms: [employer] (Pashto)
[2017-11-10 15:24] LABS: BASO # 0.1 K/uL (0.0-0.2); EOS # 0.2 K/uL (0.0-0.7); EOS % 2.1 % (0.0-4.0); HEMOGLOBIN 13.2 g/dL (12.0-16.0); LYMPH # 2.7 K/uL (1.0-4.3); LYMPH % 32.2 % (20.0-40.0); MEAN CORPUSCULAR HEMOGLOBIN 30.9 pg (27.0-31.0); MEAN CORPUSCULAR HGB CONC 33.6 g/dL (33.0-37.0); MEAN PLATELET VOLUME 8.4 fl (7.2-11.7); MONO # 0.7 K/uL (0.0-0.8); MONO % 7.8 % (0.0-10.0); NEUT # 4.8 K/uL (1.8-7.0); NEUT % 56.9 % (50.0-75.0); NRBC % 0.1 % (0.0-0.0); RBC 4.25 Mil/uL (3.80-5.20); WHITE BLOOD COUNT 8.4 K/uL (4.8-10.8)
[2017-11-10 15:37] LABS: ABG ALLEN TEST YES; ARTERIAL BLOOD GAS HCO3 27.7 mmol/L (21-28); ARTERIAL BLOOD GAS HEMOGLOBIN 13.5 g/dL (11.7-17.4); ARTERIAL BLOOD GAS O2 CAPACITY 17.9 mL/dL (16-24); ARTERIAL BLOOD GAS O2 CONTENT 16.9 ML/dL (15-23); ARTERIAL BLOOD GAS O2 SAT 94.3 % (95-98); ARTERIAL BLOOD GAS PCO2 42 mm/Hg (35-45); ARTERIAL BLOOD GAS PH 7.44 (7.35-7.45); ARTERIAL BLOOD GAS PO2 55 mm/Hg (80-100); ARTERIAL BLOOD GAS TCO2 29.8 mmol/L (22-28)
[2017-11-10 15:38] LABS: BLOOD UREA NITROGEN 17 mg/dl (7-17); CALCIUM 9.3 mg/dL (8.4-10.2); GFR AFRICAN-AMERICAN > 60; GFR NON-AFRICAN AMERICAN > 60
[2017-11-10] MEDS ORDERED: Albuterol-Ipratrop 3 mg / 0.5 (3 ml) UD INH STA (16:05)
[2017-11-10] MEDS ORDERED: Albuterol-Ipratrop 3 mg / 0.5 (3 ml) UD ONE (16:11)
--- NOTE | 2017-11-10 16:12 | ED PDOC ---
- Laboratory Results Result Diagrams: 11/13/17 08:10 11/13/17 08:10 - ECG O2 Sat by Pulse Oximetry: 94 Disposition - Clinical Impression Clinical Impression: Pneumonia - POA Present On Arrival: None - Disposition Disposition: Admitted as In-Patient Disposition Time: 17:05 Condition: STABLE Addendum Addendum: 11/10/17 15:00 Pt signed out by Dr[address] Charles pending labs.
[2017-11-10] MEDS ORDERED: Azithromycin 500 MG in Sodium Chloride 0.9% 250 ML IV STA (16:15)
--- NOTE | 2017-11-10 16:15 | RAD ---
HISTORY: dyspnea COMPARISON: Chest radiograph dated 10/19/2017. . TECHNIQUE: Chest PA and lateral FINDINGS: LUNGS: Suggestion of right middle lobe infiltrate. PLEURA: No significant pleural effusion identified. No pneumothorax apparent. CARDIOVASCULAR: Atherosclerotic aortic calcifications. Cardiomediastinal silhouette stably enlarged. OSSEOUS STRUCTURES: Unchanged. VISUALIZED UPPER ABDOMEN: Normal. OTHER FINDINGS: Large hiatal hernia. IMPRESSION: Suggestion of right middle lobe infiltrate. Large hiatal hernia.
[2017-11-10] MEDS ORDERED: cefTRIAXone (Rocephin) 1 gm Inj ONE (17:24)
[2017-11-10] MEDS ORDERED: Azithromycin 500 MG IV IVPB ONE (18:42)
[2017-11-10] MEDS ORDERED: Albuterol-Ipratrop 3 mg / 0.5 (3 ml) UD INH PRN (19:51)
[2017-11-10] MEDS: Enoxaparin 40 mg Syringe SC SCH (20:41)
[2017-11-10] MEDS ORDERED: Iodixanol 320 MG/ML 100 ML BOTTLE IV ONE (22:10)
[2017-11-11] MEDS: Levothyroxine 50 MCG TAB PO SCH (06:16)
[2017-11-11] MEDS: Enoxaparin 40 mg Syringe SC SCH (08:42)
[2017-11-11] MEDS: Multivitamin With Minerals Tab PO SCH (08:43)
[2017-11-11] MEDS: Cholecalciferol 1,000 INTLU TAB PO SCH (08:43)
[2017-11-11] MEDS ORDERED: Azithromycin 500 MG in Sodium Chloride 0.9% 250 ML IVPB SCH (09:00)
--- NOTE | 2017-11-11 09:18 | CP.PCM.HP ---
History of Present Illness - History of Present Illness History of Present Illness: Patient is a 82 y/o lady presented in ER with new onset of severe SOB, cough with tachypnea and hypoxemia by ABG. A CRX was performed and reveled an pulmonary infiltrate. She has a baseline anxiety disorders, but she presented with severe anxiety and at times with delirium. The D-DIMER were elevated and in consideration of the low O2 saturation a CTscan was ordered to R/O PE. Patient refused the test. She is less anxious and now she agrees to have the CT scan. Still c/o SOB and anxiety. Present on Admission - Present on Admission Any Indicators Present on Admission: No Review of Systems - Constitutional Constitutional: As Per HPI - EENT Eyes: As Per HPI - Cardiovascular Cardiovascular: As Per HPI - Respiratory Respiratory: Cough, Dyspnea - Gastrointestinal Gastrointestinal: As Per HPI - Musculoskeletal Musculoskeletal: As Per HPI - Integumentary Integumentary: As Per HPI - Neurological Neurological: As Per HPI - Psychiatric Psychiatric: Anxiety, Panic Attacks - Endocrine Endocrine: As Per HPI Past Patient History - Infectious Disease Hx of Infectious Diseases: None - Tetanus Immunizations Tetanus Immunization: Unknown - Past Medical History & Family History Past Medical History?: Yes - Past Social History Smoking Status: Never Smoked - CARDIAC Hx Cardiac Disorders: Yes Hx Hypercholesterolemia: Yes Hx Hypertension: Yes - PULMONARY Hx Respiratory Disorders: No Hx Tuberculosis: No - NEUROLOGICAL Hx Neurological Disorder: No Hx Seizures: No - HEENT Hx HEENT Problems: No - RENAL Hx Chronic Kidney Disease: No - ENDOCRINE/METABOLIC Hx Endocrine Disorders: Yes Hx Hypothyroidism: Yes - HEMATOLOGICAL/ONCOLOGICAL Hx Blood Disorders: No Hx AIDS: No Hx Human Immunodeficiency Virus (HIV): No - INTEGUMENTARY Hx Dermatological Problems: No - MUSCULOSKELETAL/RHEUMATOLOGICAL Hx Musculoskeletal Disorders: No Hx Falls: No - GASTROINTESTINAL Hx Gastrointestinal Disorders: Yes Hx Constipation: Yes - GENITOURINARY/GYNECOLOGICAL Hx Genitourinary Disorders: No Hx Sexually Transmitted Disorders: No - PSYCHIATRIC Hx Psychophysiologic Disorder: Yes Hx Anxiety: Yes Hx Bipolar Disorder: Yes Hx Depression: Yes Hx Substance Use: No - SURGICAL HISTORY Hx Surgeries: Yes Hx Cholecystectomy: Yes Hx Coronary Artery Bypass Graft: No - ANESTHESIA Hx Anesthesia: Yes Hx Anesthesia Reactions: No Meds Allergies/Adverse Reactions: Allergies Allergy/AdvReac Type Severity Reaction Status Date / Time levofloxacin [From Levaquin] Allergy RASH Verified 11/10/17 14:00 Physical Exam - Constitutional Appears: Chronically Ill - Head Exam Head Exam: ATRAUMATIC, NORMAL INSPECTION, NORMOCEPHALIC - Eye Exam Eye Exam: Normal appearance - ENT Exam ENT Exam: Mucous Membranes Moist - Respiratory Exam Respiratory Exam: Decreased Breath Sounds, Rhonchi - Cardiovascular Exam Cardiovascular Exam: REGULAR RHYTHM, +S1, +S2 - GI/Abdominal Exam GI & Abdominal Exam: Normal Bowel Sounds - Extremities Exam Extremities exam: Positive for: normal inspection - Neurological Exam Neurological exam: Alert, CN II-XII Intact, Oriented x3 - Psychiatric Exam Psychiatric exam: Anxious - Skin Skin Exam: Normal Color Results - Vital Signs Recent Vital Signs: Last Vital Signs Temp 98.7 F 11/11/17 08:04 Pulse 72 11/11/17 08:04 Resp 18 11/11/17 08:04 BP 144/88 11/11/17 08:04 Pulse Ox 95 11/11/17 08:04 - Labs Result Diagrams: 11/10/17 15:10 11/10/17 15:10 Labs: Laboratory Results - last 24 hr 11/10/17 11/10/17 11/10/17 15:10 15:10 15:32 WBC 8.4 RBC 4.25 Hgb 13.2 Hct 39.1 MCV 92.0 MCH 30.9 MCHC 33.6 RDW 14.0 Plt Count 197 MPV 8.4 Neut % (Auto) 56.9 Lymph % (Auto) 32.2 Ray % (Auto) 7.8 Eos % (Auto) 2.1 Baso % (Auto) 1.0 Neut # (Auto) 4.8 Lymph # (Auto) 2.7 Ray # (Auto) 0.7 Eos # (Auto) 0.2 Baso # (Auto) 0.1 D-Dimer, Quantitative pCO2 42 pO2 55 L HCO3 27.7 ABG pH 7.44 ABG Total CO2 29.8 H ABG O2 Saturation 94.3 L ABG O2 Content 16.9 ABG Base Excess 3.9 H ABG Hemoglobin 13.5 ABG Carboxyhemoglobin 2.9 H POC ABG HHb (Measured) 5.4 H ABG Methemoglobin 2.7 ABG O2 Capacity 17.9 Abraham Test Yes A-a O2 Difference 42.0 Hgb O2 Saturation 89.0 L FiO2 21.0 Sodium 140 Potassium 4.0 Chloride 104 Carbon Dioxide 26 Anion Gap 14 BUN 17 Creatinine 0.9 Est GFR ( Amer) > 60 Est GFR (Non-Af Amer) > 60 Random Glucose 75 Calcium 9.3 TSH 3rd Generation 11/10/17 11/10/17 20:07 20:07 WBC RBC Hgb Hct MCV MCH MCHC RDW Plt Count MPV Neut % (Auto) Lymph % (Auto) Ray % (Auto) Eos % (Auto) Baso % (Auto) Neut # (Auto) Lymph # (Auto) Ray # (Auto) Eos # (Auto) Baso # (Auto) D-Dimer, Quantitative 571 H pCO2 pO2 HCO3 ABG pH ABG Total CO2 ABG O2 Saturation ABG O2 Content ABG Base Excess ABG Hemoglobin ABG Carboxyhemoglobin POC ABG HHb (Measured) ABG Methemoglobin ABG O2 Capacity Abraham Test A-a O2 Difference Hgb O2 Saturation FiO2 Sodium Potassium Chloride Carbon Dioxide Anion Gap BUN Creatinine Est GFR ( Amer) Est GFR (Non-Af Amer) Random Glucose Calcium TSH 3rd Generation 1.50 Assessment & Plan (1) Pneumonia Status: Acute (2) Hypoxemia Status: Acute (3) Anxiety Status: Chronic (4) Anxiety disorder Status: Chronic (5) Bipolar disorder Status: Chronic (6) Depression Status: Chronic (7) HTN (hypertension) Status: Chronic (8) Hypothyroid Status: Chronic (9) Pulmonary embolism Status: Suspected - Assessment and Plan (Free Text) Plan: Continue present rx.
[2017-11-11] MEDS ORDERED: Sodium Chloride 0.9% 100 ML ONE (10:26)
[2017-11-11] MEDS ORDERED: Iodixanol 320 MG/ML 100 ML BOTTLE IV ONE (10:26)
--- NOTE | 2017-11-11 11:02 | CP.PCM.CON ---
History of Present Illness - History of Present Illness History of Present Illness: This 82 year old female presented to the emergency room with complaint of sudden onset of SOB. She had been referred because of shortness of breath associated with cough and tachypnea. Arterial blood gas revealed a PaO2 of [address] angiogram of the lungs was requested. There was also the question of a pulmonary infiltrate seen on the chest x-ray at the time of presentation. There was no fever or leukocytosis. CT angiogram of the lungs revealed small subsegmental pulmonary emboli bilaterally. No discrete pulmonary infiltrate was noted although areas of atelectasis secondary to a very large hiatal hernia was seen in the right lower lobe. She was complaining also of swelling in the right lower extremity which appears to be a long-standing issue. Reviewing her past history there is also noted CT scan 2007 which showed pulmonary emboli bilaterally as well. A recent CT angiogram of the chest was performed in October of this year because of similar complaints, but did not reveal any pulmonary emboli. Review of Systems - Review of Systems All systems: reviewed and no additional remarkable complaints except - Cardiovascular Cardiovascular: Leg Edema (RLE) - Respiratory Respiratory: Dyspnea - Gastrointestinal Gastrointestinal: Constipation Past Patient History - Infectious Disease Hx of Infectious Diseases: None - Tetanus Immunizations Tetanus Immunization: Unknown - Past Medical History & Family History Past Medical History?: Yes - Past Social History Smoking Status: Never Smoked Chewing Tobacco Use: No Cigar Use: No Alcohol: None Drugs: Denies - CARDIAC Hx Hypercholesterolemia: Yes Hx Hypertension: Yes - PULMONARY Hx Pulmonary Embolism: Yes (2007) Hx Tuberculosis: No - NEUROLOGICAL Hx Neurological Disorder: No Hx Seizures: No - HEENT Hx HEENT Problems: No - RENAL Hx Chronic Kidney Disease: No - ENDOCRINE/METABOLIC Hx Hypothyroidism: Yes - HEMATOLOGICAL/ONCOLOGICAL Hx Blood Disorders: No Hx Human Immunodeficiency Virus (HIV): No - INTEGUMENTARY Hx Dermatological Problems: No - MUSCULOSKELETAL/RHEUMATOLOGICAL Hx Musculoskeletal Disorders: No Hx Falls: No - GASTROINTESTINAL Hx Constipation: Yes - GENITOURINARY/GYNECOLOGICAL Hx Genitourinary Disorders: No Hx Sexually Transmitted Disorders: No - PSYCHIATRIC Hx Anxiety: Yes Hx Bipolar Disorder: Yes Hx Depression: Yes Hx Substance Use: No - SURGICAL HISTORY Hx Surgeries: Yes Hx Cholecystectomy: Yes - ANESTHESIA Hx Anesthesia: Yes Hx Anesthesia Reactions: No Meds Allergies/Adverse Reactions: Allergies Allergy/AdvReac Type Severity Reaction Status Date / Time levofloxacin [From Levaquin] Allergy RASH Verified 11/10/17 14:00 - Medications Medications: Current Medications Albuterol/Ipratropium (Duoneb 3 Mg/0.5 Mg (3 Ml) Ud) 3 ml INH RQ6 PRN PRN Reason: Shortness of Breath Atorvastatin Calcium (Lipitor) 10 mg PO HS [facility] Last Admin: 11/10/17 22:00 Dose: 10 mg Cholecalciferol (Vitamin D) 1,000 intlu PO DAILY [facility] Last Admin: 11/11/17 08:43 Dose: 1,000 intlu Enalapril Maleate (Vasotec) 5 mg PO DAILY [facility] Last Admin: 11/11/17 08:43 Dose: 5 mg Enoxaparin Sodium (Lovenox) 40 mg SC DAILY [facility] PRN Reason: Protocol Last Admin: 11/11/17 08:42 Dose: 40 mg Gabapentin (Neurontin) 100 mg PO Q8 [facility] Last Admin: 11/11/17 08:43 Dose: 100 mg Azithromycin 500 mg/ Sodium (Chloride) 250 mls @ 250 mls/hr IVPB DAILY [facility] PRN Reason: Protocol Last Admin: 11/11/17 09:55 Dose: 250 mls/hr Ceftriaxone Sodium 1 gm/ (Sodium Chloride) 100 mls @ 100 mls/hr IVPB DAILY [facility] PRN Reason: Protocol Last Admin: 11/11/17 08:44 Dose: 100 mls/hr Levothyroxine Sodium (Synthroid) 50 mcg PO DAILY@0630 [facility] Last Admin: 11/11/17 06:16 Dose: 50 mcg Lorazepam (Ativan) 0.5 mg PO DAILY PRN PRN Reason: Anxiety Last Admin: 11/10/17 22:07 Dose: 0.5 mg Lorazepam (Ativan) 1 mg PO DAILY [facility] Last Admin: 11/11/17 08:42 Dose: 1 mg Multivitamins/Minerals (Therapeutic-M Tab) 1 tab PO DAILY [facility] Last Admin: 11/11/17 08:43 Dose: 1 tab Quetiapine Fumarate (Seroquel) 100 mg PO Q12 [facility] Last Admin: 11/11/17 08:43 Dose: 100 mg Physical Exam - Additional Findings Additional findings: Well-nourished, well-developed female who appears exceptionally anxious. Her memory seems to be intact and she is oriented. She does repeat her questions over a few times. There is noticeable difference in size of the right calf compared to the left. There is no calf tenderness or palpable venous cords. No prominence of the vascular pattern. Peripheral pulses are diminished but present equally. No cyanosis. No palpable lymphadenopathy. Pharynx is pink and mucous membranes are moist without exudate. Neck is supple and trachea is midline. Carotid impulse is well felt bilaterally and there is no neck vein distention noted. No palpable thyromegaly. Mild asymmetry of the thorax is noted with equal expansion. No dullness on chest percussion. Vocal tactile fremitus is intact. Breath sounds are diminished but present equally in both lungs. No audible rales or wheezes. Occasional sonorous rhonchi are heard dependent zones posteriorly. Heart sounds are well heard and the rhythm is regular. No murmur is appreciated. The abdomen is soft and nontender with normal bowel sounds. No mass felt. No CVA tenderness. Results - Vital Signs Recent Vital Signs: Last Vital Signs Temp 98.7 F 11/11/17 08:04 Pulse 72 11/11/17 08:04 Resp 18 11/11/17 08:04 BP 144/88 11/11/17 08:04 Pulse Ox 95 11/11/17 08:04 - Labs Result Diagrams: 11/13/17 08:10 11/13/17 08:10 Labs: Laboratory Results - last 24 hr 11/10/17 11/10/17 11/10/17 15:10 15:10 15:32 WBC 8.4 RBC 4.25 Hgb 13.2 Hct 39.1 MCV 92.0 MCH 30.9 MCHC 33.6 RDW 14.0 Plt Count 197 MPV 8.4 Neut % (Auto) 56.9 Lymph % (Auto) 32.2 [place] % (Auto) 7.8 Eos % (Auto) 2.1 Baso % (Auto) 1.0 Neut # (Auto) 4.8 Lymph # (Auto) 2.7 [place] # (Auto) 0.7 Eos # (Auto) 0.2 Baso # (Auto) 0.1 D-Dimer, Quantitative pCO2 42 pO2 55 L HCO3 27.7 ABG pH 7.44 ABG Total CO2 29.8 H ABG O2 Saturation 94.3 L ABG O2 Content 16.9 ABG Base Excess 3.9 H ABG Hemoglobin 13.5 ABG Carboxyhemoglobin 2.9 H POC ABG HHb (Measured) 5.4 H ABG Methemoglobin 2.7 ABG O2 Capacity 17.9 Abraham Test Yes A-a O2 Difference 42.0 Hgb O2 Saturation 89.0 L FiO2 21.0 Sodium 140 Potassium 4.0 Chloride 104 Carbon Dioxide 26 Anion Gap 14 BUN 17 Creatinine 0.9 Est GFR ( Amer) > 60 Est GFR (Non-Af Amer) > 60 Random Glucose 75 Calcium 9.3 Troponin I TSH 3rd Generation 11/10/17 11/10/17 11/11/17 20:07 20:07 09:33 WBC RBC Hgb Hct MCV MCH MCHC RDW Plt Count MPV Neut % (Auto) Lymph % (Auto) [place] % (Auto) Eos % (Auto) Baso % (Auto) Neut # (Auto) Lymph # (Auto) [place] # (Auto) Eos # (Auto) Baso # (Auto) D-Dimer, Quantitative 571 H pCO2 pO2 HCO3 ABG pH ABG Total CO2 ABG O2 Saturation ABG O2 Content ABG Base Excess ABG Hemoglobin ABG Carboxyhemoglobin POC ABG HHb (Measured) ABG Methemoglobin ABG O2 Capacity Abraham Test A-a O2 Difference Hgb O2 Saturation FiO2 Sodium Potassium Chloride Carbon Dioxide Anion Gap BUN Creatinine Est GFR ( Amer) Est GFR (Non-Af Amer) Random Glucose Calcium Troponin I < 0.0120 TSH 3rd Generation 1.50 Assessment & Plan (1) Pulmonary embolism Assessment and Plan: Reported emboli in subsegmental pulmonary arteries bilaterally. Prior PEs noted in 2007 raise possibility of coagulopathy. Needs echocardiogram to check for pulmonary hypertension. Full dose anticoagulation if no contraindication. Heme consult to eval for coagulopathy as she may need lifelong anticoagulant treatment. Status: Acute Priority: High (2) Atelectasis Assessment and Plan: Subsegmental areas of atelectasis seen in the RML and ESPERANZA. These have been present on prior cat scans as well (as far back as ); ? chronicity raises possibility of subsegmental organized pneumonia. No areas of acute pneumonia seen on this study. Would use aerosol therapy with mucolytic agent and CPT with Acapella. Status: Acute Priority: High - Date & Time Date: 11/11/17 Time: 11:02
--- NOTE | 2017-11-11 11:55 | CT ---
PROCEDURE: CT Chest with contrast (Pulmonary Angiogram) HISTORY: r/o PE COMPARISON: CT angiography of the pulmonary arteries performed 10/19/2017. TECHNIQUE: Axial computed tomography images were obtained of the chest in the pulmonary arterial phase of enhancement. Coronal and sagittal reformatted images were created and reviewed. Intravenous contrast dose: 98 mL Visipaque 320 Radiation dose: Total exam DLP = 350.6 mGy-cm. This CT exam was performed using one or more of the following dose reduction techniques: Automated exposure control, adjustment of the mA and/or kV according to patient size, and/or use of iterative reconstruction technique. FINDINGS: PULMONARY ARTERIES: Small emboli in bilateral subsegmental pulmonary arteries. AORTA: No acute findings. Calcific atherosclerosis No thoracic aortic aneurysm. LUNGS: Subsegmental right upper and left upper lobe atelectasis. No nodule, mass or pulmonary consolidation. PLEURAL SPACES: Unremarkable. No effusion or pneumothorax. HEART: Cardiomegaly. Heavy mitral annular calcification. Small perforating fusion. LYMPH NODES: No lymphadenopathy. BONES, CHEST WALL: Unremarkable. No fracture or destructive lesion OTHER FINDINGS: Large hiatal hernia. Prior cholecystectomy. Left upper pole renal cyst. Right interpolar renal cyst. IMPRESSION: Recurrent small bilateral subsegmental pulmonary emboli. No CT evidence of right heart strain. Findings conveyed to JUSTUS Chinchilla by Dr. Cruz at 11:47 am on 11/11/2017.
[2017-11-11] MEDS: Levalbuterol 1.25 MG/3 ML Inhal Soln UD INH SCH (19:42)
[2017-11-11] MEDS: Acetylcysteine 20% Inhal Soln (4ml) INH SCH (19:42)
[2017-11-11] MEDS: Enoxaparin 80 mg Syringe SC SCH (21:18)
[2017-11-12] MEDS: Levothyroxine 50 MCG TAB PO SCH (06:30)
[2017-11-12] MEDS: Levalbuterol 1.25 MG/3 ML Inhal Soln UD INH SCH ×2 (08:14→19:20)
[2017-11-12] MEDS: Acetylcysteine 20% Inhal Soln (4ml) INH SCH ×2 (08:14→19:27)
--- NOTE | 2017-11-12 09:31 | CP.PCM.PN ---
Subjective - Date & Time of Evaluation Date of Evaluation: 11/12/17 Time of Evaluation: 09:31 - Subjective Subjective: Still c/o SOB at times severe. Objective - Vital Signs/Intake and Output Vital Signs (last 24 hours): Temp Pulse Resp BP Pulse Ox 98.2 F 81 20 147/85 96 11/12/17 07:54 11/12/17 07:54 11/12/17 07:54 11/12/17 07:54 11/12/17 07:54 - Medications Medications: Current Medications Acetylcysteine (Acetylcysteine 20%) 2 ml INH RBID [facility] Last Admin: 11/12/17 08:14 Dose: 2 ml Atorvastatin Calcium (Lipitor) 10 mg PO HS [facility] Last Admin: 11/11/17 21:22 Dose: 10 mg Cholecalciferol (Vitamin D) 1,000 intlu PO DAILY [facility] Last Admin: 11/11/17 08:43 Dose: 1,000 intlu Enalapril Maleate (Vasotec) 5 mg PO DAILY [facility] Last Admin: 11/11/17 08:43 Dose: 5 mg Enoxaparin Sodium (Lovenox) 70 mg SC Q12 [facility] PRN Reason: Protocol Last Admin: 11/11/17 21:18 Dose: 70 mg Gabapentin (Neurontin) 100 mg PO Q8 [facility] Last Admin: 11/12/17 01:16 Dose: 100 mg Ceftriaxone Sodium 1 gm/ (Sodium Chloride) 100 mls @ 100 mls/hr IVPB DAILY [facility] PRN Reason: Protocol Last Admin: 11/11/17 08:44 Dose: 100 mls/hr Azithromycin 500 mg/ Sodium (Chloride) 250 mls @ 250 mls/hr IVPB DAILY [facility] PRN Reason: Protocol Levalbuterol HCl (Xopenex) 1.25 mg INH RBID [facility] Last Admin: 11/12/17 08:14 Dose: 1.25 mg Levothyroxine Sodium (Synthroid) 50 mcg PO DAILY@0630 [facility] Last Admin: 11/12/17 06:30 Dose: 50 mcg Lorazepam (Ativan) 0.5 mg PO DAILY PRN PRN Reason: Anxiety Last Admin: 11/12/17 03:28 Dose: 0.5 mg Lorazepam (Ativan) 1 mg PO DAILY [facility] Last Admin: 11/11/17 08:42 Dose: 1 mg Multivitamins/Minerals (Therapeutic-M Tab) 1 tab PO DAILY [facility] Last Admin: 11/11/17 08:43 Dose: 1 tab Quetiapine Fumarate (Seroquel) 100 mg PO Q12 [facility] Last Admin: 11/11/17 21:22 Dose: 100 mg - Labs Labs: 11/10/17 15:10 11/10/17 15:10 - Constitutional Appears: Chronically Ill - Eye Exam Eye Exam: Normal appearance - ENT Exam ENT Exam: Mucous Membranes Moist - Neck Exam Neck Exam: Full ROM - Respiratory Exam Respiratory Exam: Decreased Breath Sounds - Cardiovascular Exam Cardiovascular Exam: REGULAR RHYTHM, +S1, +S2 - GI/Abdominal Exam GI & Abdominal Exam: Soft, Normal Bowel Sounds - Extremities Exam Extremities Exam: Full ROM - Neurological Exam Neurological Exam: Alert, Awake, Oriented x3 - Psychiatric Exam Psychiatric exam: Anxious - Skin Skin Exam: Normal Color Assessment and Plan (1) Pneumonia Status: Acute (2) Hypoxemia Status: Acute (3) Anxiety Status: Chronic (4) Anxiety disorder Status: Chronic (5) Bipolar disorder Status: Chronic (6) Depression Status: Chronic (7) HTN (hypertension) Status: Chronic (8) Hypothyroid Status: Chronic (9) Pulmonary embolism Status: Acute - Assessment and Plan (Free Text) Plan: Continue present rx. To telemetry for cardio-pulmonary monitor. Consults appreciated.
[2017-11-12] MEDS: Enoxaparin 80 mg Syringe SC SCH ×2 (09:35→21:23)
[2017-11-12] MEDS: Multivitamin With Minerals Tab PO SCH (09:38)
[2017-11-12] MEDS: Cholecalciferol 1,000 INTLU TAB PO SCH (09:38)
[2017-11-12] MEDS: Azithromycin 500 MG in Sodium Chloride 0.9% 250 ML IVPB SCH (09:41)
--- NOTE | 2017-11-12 11:02 | US ---
PROCEDURE: Bilateral lower extremity venous duplex Doppler. HISTORY: r/o DVT COMPARISON: None available. TECHNIQUE: Bilateral common femoral, superficial femoral, popliteal and posterior tibial veins were evaluated. Flow was assessed with color Doppler, compressibility, assessment of phasic flow and augmentation response. FINDINGS: COMMON FEMORAL VEIN: Right CFV: Unremarkable. Left CFV: Unremarkable. SUPERFICIAL FEMORAL VEIN: Right SFV: Unremarkable. Left SFV: Unremarkable. POPLITEAL VEIN: Right Popliteal: Unremarkable. Left Popliteal: Unremarkable. POSTERIOR TIBIAL VEIN: Right PTV: Unremarkable. Left PTV: Unremarkable. OTHER FINDINGS: None. IMPRESSION: No evidence of deep venous thrombosis.
[2017-11-12 19:25] LABS: SQUAMOUS EPITHIAL < 1 /hpf (0-5); URINE AMORPHOUS SEDIMENT RARE /ul (<OCC); URINE BILIRUBIN NEGATIVE (NEGATIVE); URINE BLOOD NEGATIVE (NEGATIVE); URINE CLARITY SLIGHTY-CLOUDY (Clear); URINE COLOR YELLOW (YELLOW); URINE GLUCOSE (UA) NEG (Normal); URINE LEUKOCYTE ESTERASE NEG Leu/uL (Negative); URINE PROTEIN NEGATIVE (NEGATIVE); URINE UROBILINOGEN 0.2-1.0 mg/dL (0.2-1.0)
[2017-11-13] MEDS: Levothyroxine 50 MCG TAB PO SCH (05:54)
[2017-11-13] MEDS: Acetylcysteine 20% Inhal Soln (4ml) INH SCH ×2 (07:36→20:09)
[2017-11-13] MEDS: Levalbuterol 1.25 MG/3 ML Inhal Soln UD INH SCH ×2 (07:36→20:09)
--- NOTE | 2017-11-13 07:55 | CP.PCM.PN ---
Subjective - Date & Time of Evaluation Date of Evaluation: 11/13/17 Time of Evaluation: 07:50 - Subjective Subjective: Patient seen and examined bedside with dr Storm.Patient reports feeling better and with less SOB, but reports occs nausea w/o vomiting. Patient breathing by NC 2 l, O2 sat 92%. She denies chest pain, cough, hemoptysis, dysuria. Patient c /o right leg swelling, denies calf pain. lower ext duplex us neg for DVT. Patient explained nausea may be related to hiatal hernia and instructed to eat less amount of food and not to lying down soon after dinner Objective - Vital Signs/Intake and Output Vital Signs (last 24 hours): Temp Pulse Resp BP Pulse Ox 98.2 F 71 16 133/79 95 11/13/17 04:45 11/13/17 04:45 11/13/17 04:45 11/13/17 04:45 11/13/17 04:45 Intake and Output: 11/13/17 11/13/17 06:59 18:59 Intake Total 600 Balance 600 - Medications Medications: Current Medications Acetylcysteine (Acetylcysteine 20%) 2 ml INH RBID [facility] Last Admin: 11/13/17 07:36 Dose: 2 ml Atorvastatin Calcium (Lipitor) 10 mg PO HS [facility] Last Admin: 11/12/17 21:23 Dose: 10 mg Cholecalciferol (Vitamin D) 1,000 intlu PO DAILY [facility] Last Admin: 11/12/17 09:38 Dose: 1,000 intlu Enalapril Maleate (Vasotec) 5 mg PO DAILY [facility] Last Admin: 11/12/17 09:37 Dose: 5 mg Enoxaparin Sodium (Lovenox) 70 mg SC Q12 [facility] PRN Reason: Protocol Last Admin: 11/12/17 21:23 Dose: 70 mg Gabapentin (Neurontin) 100 mg PO Q8 [facility] Last Admin: 11/13/17 00:27 Dose: Not Given Ceftriaxone Sodium 1 gm/ (Sodium Chloride) 100 mls @ 100 mls/hr IVPB DAILY [facility] PRN Reason: Protocol Last Admin: 11/12/17 09:40 Dose: 100 mls/hr Azithromycin 500 mg/ Sodium (Chloride) 250 mls @ 250 mls/hr IVPB DAILY [facility] PRN Reason: Protocol Last Admin: 11/12/17 09:41 Dose: 250 mls/hr Levalbuterol HCl (Xopenex) 1.25 mg INH RBID [facility] Last Admin: 11/13/17 07:36 Dose: 1.25 mg Levothyroxine Sodium (Synthroid) 50 mcg PO DAILY@0630 [facility] Last Admin: 11/13/17 05:54 Dose: 50 mcg Lorazepam (Ativan) 0.5 mg PO DAILY PRN PRN Reason: Anxiety Last Admin: 11/12/17 03:28 Dose: 0.5 mg Lorazepam (Ativan) 1 mg PO DAILY [facility] Last Admin: 11/12/17 13:56 Dose: Not Given Multivitamins/Minerals (Therapeutic-M Tab) 1 tab PO DAILY [facility] Last Admin: 11/12/17 09:38 Dose: 1 tab Quetiapine Fumarate (Seroquel) 100 mg PO Q12 [facility] Last Admin: 11/12/17 21:23 Dose: 100 mg - Labs Labs: 11/10/17 15:10 11/10/17 15:10 - Constitutional Appears: Non-toxic, No Acute Distress - Head Exam Head Exam: NORMOCEPHALIC - Eye Exam Eye Exam: Normal appearance - ENT Exam ENT Exam: Mucous Membranes Moist - Neck Exam Neck Exam: Normal Inspection - Respiratory Exam Respiratory Exam: Clear to Ausculation Bilateral. absent: Rales, Rhonchi, Wheezes - Cardiovascular Exam Cardiovascular Exam: REGULAR RHYTHM, +S1, +S2 - GI/Abdominal Exam GI & Abdominal Exam: Soft, Normal Bowel Sounds. absent: Tenderness - Extremities Exam Additional comments: mild pedal edema right calf, superficial varicose vein seen. no erythema, no vascular cords palpated. - Neurological Exam Neurological Exam: Alert, Awake, Oriented x3 - Psychiatric Exam Psychiatric exam: Normal Mood - Skin Skin Exam: Intact Assessment and Plan (1) Pulmonary embolism Assessment & Plan: Ct chest: subsegmental pulmonary arteries PE. -Hx/o PE 2008 -Recurrent PE. To r/o cuagulopathy -Hem-Onc consult appreciated: recommends CT abd to r/o malignancy -Echo pending for today -C/w anticoagulation Status: Acute (2) Atelectasis Assessment & Plan: Subsegmental areas of atelectasis seen in the RML and ESPERANZA. These have been present on prior cat scans as well (as far back as ); ? chronicity raises possibility of subsegmental organized pneumonia. No areas of acute pneumonia seen on this study. Would use aerosol therapy with mucolytic agent and CPT with Acapella. Status: Acute
[2017-11-13] MEDS: Enoxaparin 80 mg Syringe SC SCH ×2 (08:20→21:40)
[2017-11-13] MEDS: Multivitamin With Minerals Tab PO SCH (08:21)
[2017-11-13] MEDS: Cholecalciferol 1,000 INTLU TAB PO SCH (08:21)
[2017-11-13 08:29] LABS: BASO # 0.1 K/uL (0.0-0.2); BASO % 1.1 % (0.0-2.0); EOS # 0.2 K/uL (0.0-0.7); EOS % 1.7 % (0.0-4.0); HEMOGLOBIN 13.4 g/dL (12.0-16.0); LYMPH # 3.7 K/uL (1.0-4.3); LYMPH % 39.6 % (20.0-40.0); MEAN CELL VOLUME 91.4 fl (81.0-99.0); MEAN CORPUSCULAR HEMOGLOBIN 31.6 pg (27.0-31.0); MEAN CORPUSCULAR HGB CONC 34.6 g/dL (33.0-37.0); MEAN PLATELET VOLUME 8.7 fl (7.2-11.7); MONO # 0.6 K/uL (0.0-0.8); MONO % 6.7 % (0.0-10.0); NEUT # 4.8 K/uL (1.8-7.0); NEUT % 50.9 % (50.0-75.0); NRBC % 0.1 % (0.0-0.0); RBC 4.23 Mil/uL (3.80-5.20); WHITE BLOOD COUNT 9.4 K/uL (4.8-10.8)
[2017-11-13 08:37] LABS: BLOOD UREA NITROGEN 17 mg/dl (7-17); CALCIUM 8.7 mg/dL (8.4-10.2); GFR AFRICAN-AMERICAN > 60; GFR NON-AFRICAN AMERICAN > 60
[2017-11-13] MEDS ORDERED: Diatriz Meglumine/Diatriz Sod 30 ML BOTTLE PO ONE (08:58)
--- NOTE | 2017-11-13 09:13 | CP.PCM.CON ---
History of Present Illness - History of Present Illness History of Present Illness: This is a 82 yrs old female who was admitted with marked shortness of breath and tachycardia, she also c/o chest pain and was found to have bilateral pulmonary emboli. She claims that she had a similar episode in 2007 but did not receive any anticoagulants. She has a h/o depression and is mostly in bed. Her lower extremities did not demonstrate any thrombi. She has no family h/o hypercoagulopathy.. She c/o some discomfort in her epigastric area, but there is no c/o dark stools. She never smoked Did not dsrink. She has a h/o anxiety and depressive disorder, HTN , hyperlipidemia, Past Patient History - Infectious Disease Hx of Infectious Diseases: None - Tetanus Immunizations Tetanus Immunization: Unknown - Past Medical History & Family History Past Medical History?: Yes - Past Social History Smoking Status: Never Smoked - CARDIAC Hx Cardiac Disorders: Yes Hx Hypercholesterolemia: Yes Hx Hypertension: Yes - PULMONARY Hx Respiratory Disorders: No Hx Tuberculosis: No - NEUROLOGICAL Hx Neurological Disorder: No Hx Seizures: No - HEENT Hx HEENT Problems: No - RENAL Hx Chronic Kidney Disease: No - ENDOCRINE/METABOLIC Hx Endocrine Disorders: Yes Hx Hypothyroidism: Yes - HEMATOLOGICAL/ONCOLOGICAL Hx Blood Disorders: No Hx AIDS: No Hx Human Immunodeficiency Virus (HIV): No - INTEGUMENTARY Hx Dermatological Problems: No - MUSCULOSKELETAL/RHEUMATOLOGICAL Hx Musculoskeletal Disorders: No Hx Falls: No - GASTROINTESTINAL Hx Gastrointestinal Disorders: Yes Hx Constipation: Yes - GENITOURINARY/GYNECOLOGICAL Hx Genitourinary Disorders: No Hx Sexually Transmitted Disorders: No - PSYCHIATRIC Hx Psychophysiologic Disorder: Yes Hx Anxiety: Yes Hx Bipolar Disorder: Yes Hx Depression: Yes Hx Substance Use: No - SURGICAL HISTORY Hx Surgeries: Yes Hx Cholecystectomy: Yes Hx Coronary Artery Bypass Graft: No - ANESTHESIA Hx Anesthesia: Yes Hx Anesthesia Reactions: No Meds Allergies/Adverse Reactions: Allergies Allergy/AdvReac Type Severity Reaction Status Date / Time levofloxacin [From Levaquin] Allergy RASH Verified 11/10/17 14:00 - Medications Medications: Current Medications Acetylcysteine (Acetylcysteine 20%) 2 ml INH RBID [facility] Last Admin: 11/13/17 07:36 Dose: 2 ml Atorvastatin Calcium (Lipitor) 10 mg PO HS [facility] Last Admin: 11/12/17 21:23 Dose: 10 mg Cholecalciferol (Vitamin D) 1,000 intlu PO DAILY [facility] Last Admin: 11/13/17 08:21 Dose: 1,000 intlu Diatrizoate Meglum/Diatrizoate Sod (Md-Gastroview 66-10% (30 Ml)) 30 ml PO ONCE ONE Stop: 11/13/17 08:59 Enalapril Maleate (Vasotec) 5 mg PO DAILY [facility] Last Admin: 11/13/17 08:20 Dose: 5 mg Enoxaparin Sodium (Lovenox) 70 mg SC Q12 [facility] PRN Reason: Protocol Last Admin: 11/13/17 08:20 Dose: 70 mg Gabapentin (Neurontin) 100 mg PO Q8 [facility] Last Admin: 11/13/17 08:21 Dose: 100 mg Ceftriaxone Sodium 1 gm/ (Sodium Chloride) 100 mls @ 100 mls/hr IVPB DAILY [facility] PRN Reason: Protocol Last Admin: 11/12/17 09:40 Dose: 100 mls/hr Azithromycin 500 mg/ Sodium (Chloride) 250 mls @ 250 mls/hr IVPB DAILY [facility] PRN Reason: Protocol Last Admin: 11/12/17 09:41 Dose: 250 mls/hr Levalbuterol HCl (Xopenex) 1.25 mg INH RBID [facility] Last Admin: 11/13/17 07:36 Dose: 1.25 mg Levothyroxine Sodium (Synthroid) 50 mcg PO DAILY@0630 [facility] Last Admin: 11/13/17 05:54 Dose: 50 mcg Lorazepam (Ativan) 0.5 mg PO DAILY PRN PRN Reason: Anxiety Last Admin: 11/12/17 03:28 Dose: 0.5 mg Lorazepam (Ativan) 1 mg PO DAILY [facility] Last Admin: 11/13/17 08:28 Dose: Not Given Multivitamins/Minerals (Therapeutic-M Tab) 1 tab PO DAILY [facility] Last Admin: 11/13/17 08:21 Dose: 1 tab Quetiapine Fumarate (Seroquel) 100 mg PO Q12 [facility] Last Admin: 11/13/17 08:24 Dose: 100 mg Physical Exam - Additional Findings Additional findings: Physical exam; Alert,well oriented in no acute distress Neck; supple, no adenopathy Chest; Clear, no rales some rhonchi bilaterally Heart; RSR, no murmur Abd Soft, no mass,no h/smegaly Results - Vital Signs Recent Vital Signs: Last Vital Signs Temp 98.4 F 11/13/17 08:08 Pulse 70 11/13/17 08:08 Resp 18 11/13/17 08:08 BP 137/81 11/13/17 08:08 Pulse Ox 93 L 11/13/17 08:08 - Labs Result Diagrams: 11/13/17 08:10 11/13/17 08:10 Labs: Laboratory Results - last 24 hr 11/11/17 11/13/17 11/13/17 19:00 08:10 08:10 WBC 9.4 RBC 4.23 Hgb 13.4 Hct 38.7 MCV 91.4 MCH 31.6 H MCHC 34.6 RDW 14.0 Plt Count 190 MPV 8.7 Neut % (Auto) 50.9 Lymph % (Auto) 39.6 [place] % (Auto) 6.7 Eos % (Auto) 1.7 Baso % (Auto) 1.1 Neut # (Auto) 4.8 Lymph # (Auto) 3.7 [place] # (Auto) 0.6 Eos # (Auto) 0.2 Baso # (Auto) 0.1 Sodium 141 Potassium 4.1 Chloride 105 Carbon Dioxide 25 Anion Gap 15 BUN 17 Creatinine 0.8 Est GFR ( Amer) > 60 Est GFR (Non-Af Amer) > 60 Random Glucose 107 H Calcium 8.7 Urine Color Yellow Urine Clarity Slighty-cloudy Urine pH 6.0 Ur Specific [place] 1.024 Urine Protein Negative Urine Glucose (UA) Neg Urine Ketones Negative Urine Blood Negative Urine Nitrate Negative Urine Bilirubin Negative Urine Urobilinogen 0.2-1.0 Ur Leukocyte Esterase Neg Urine RBC (Auto) 1 Urine Microscopic WBC 4 Ur Squamous Epith Cells < 1 Amorphous Sediment Rare H Assessment & Plan - Assessment and Plan (Free Text) Assessment: Impression; Bilateral Pulmonary embolism the second time she has had this, Pneumonia, depression. Plan: Plan; have ordered tests for hypercoagulopathy Will request CT of the abdomen to r/0 a malignancy which could cause the thrombus. - Date & Time Date: 11/13/17 Time: 09:29
--- NOTE | 2017-11-13 10:09 | CARD ---
APPROVED REPORT EKG Measurement Heart [id number] <Conclusion> Poor data quality, interpretation may be adversely affected Normal sinus rhythm Left axis deviation Nonspecific T wave abnormality Abnormal ECG
[2017-11-13] MEDS: Azithromycin 500 MG in Sodium Chloride 0.9% 250 ML IVPB SCH (10:35)
--- NOTE | 2017-11-13 12:20 | CP.PCM.PN ---
Subjective - Date & Time of Evaluation Date of Evaluation: 11/13/17 Time of Evaluation: 12:19 - Subjective Subjective: Patient at times anxious , SOB. Objective - Vital Signs/Intake and Output Vital Signs (last 24 hours): Temp Pulse Resp BP Pulse Ox 98.4 F 70 18 137/81 93 L 11/13/17 08:08 11/13/17 08:08 11/13/17 08:08 11/13/17 08:08 11/13/17 08:08 - Medications Medications: Current Medications Acetylcysteine (Acetylcysteine 20%) 2 ml INH RBID [facility] Last Admin: 11/13/17 07:36 Dose: 2 ml Atorvastatin Calcium (Lipitor) 10 mg PO HS [facility] Last Admin: 11/12/17 21:23 Dose: 10 mg Cholecalciferol (Vitamin D) 1,000 intlu PO DAILY [facility] Last Admin: 11/13/17 08:21 Dose: 1,000 intlu Enalapril Maleate (Vasotec) 5 mg PO DAILY [facility] Last Admin: 11/13/17 08:20 Dose: 5 mg Enoxaparin Sodium (Lovenox) 70 mg SC Q12 [facility] PRN Reason: Protocol Last Admin: 11/13/17 08:20 Dose: 70 mg Famotidine (Pepcid) 20 mg PO BID [facility] Gabapentin (Neurontin) 100 mg PO Q8 [facility] [place] Last Admin: 11/13/17 08:21 Dose: 100 mg Ceftriaxone Sodium 1 gm/ (Sodium Chloride) 100 mls @ 100 mls/hr IVPB DAILY [facility] [place] PRN Reason: Protocol Last Admin: 11/13/17 10:35 Dose: 100 mls/hr Azithromycin 500 mg/ Sodium (Chloride) 250 mls @ 250 mls/hr IVPB DAILY [facility] PRN Reason: Protocol Last Admin: 11/13/17 10:35 Dose: 250 mls/hr Levalbuterol HCl (Xopenex) 1.25 mg INH RBID [facility] [place] Last Admin: 11/13/17 07:36 Dose: 1.25 mg Levothyroxine Sodium (Synthroid) 50 mcg PO DAILY@0630 [facility] Last Admin: 11/13/17 05:54 Dose: 50 mcg Lorazepam (Ativan) 0.5 mg PO DAILY PRN PRN Reason: Anxiety Last Admin: 11/13/17 12:01 Dose: 0.5 mg Lorazepam (Ativan) 1 mg PO DAILY [facility] [place] Last Admin: 11/13/17 08:28 Dose: Not Given Multivitamins/Minerals (Therapeutic-M Tab) 1 tab PO DAILY [facility] Last Admin: 11/13/17 08:21 Dose: 1 tab Quetiapine Fumarate (Seroquel) 100 mg PO Q12 [facility] Last Admin: 11/13/17 08:24 Dose: 100 mg - Labs Labs: 11/13/17 08:10 11/13/17 08:10 - Constitutional Appears: Chronically Ill - Head Exam Head Exam: ATRAUMATIC, NORMAL INSPECTION, NORMOCEPHALIC - Eye Exam Eye Exam: Normal appearance - ENT Exam ENT Exam: Mucous Membranes Moist - Neck Exam Neck Exam: Full ROM - Respiratory Exam Respiratory Exam: Decreased Breath Sounds - Cardiovascular Exam Cardiovascular Exam: REGULAR RHYTHM, +S1, +S2 - GI/Abdominal Exam GI & Abdominal Exam: Soft, Normal Bowel Sounds - Extremities Exam Extremities Exam: Normal Inspection - Neurological Exam Neurological Exam: Alert, Awake, Oriented x3 - Psychiatric Exam Psychiatric exam: Anxious - Skin Skin Exam: Normal Color Assessment and Plan (1) Pneumonia Status: Acute (2) Hypoxemia Status: Acute (3) Anxiety Status: Chronic (4) Anxiety disorder Status: Chronic (5) Bipolar disorder Status: Chronic (6) Depression Status: Chronic (7) HTN (hypertension) Status: Chronic (8) Hypothyroid Status: Chronic (9) Pulmonary embolism Status: Acute - Assessment and Plan (Free Text) Plan: Continue present rx.
--- NOTE | 2017-11-13 20:56 | CARD ---
APPROVED REPORT EXAM: Two-dimensional and M-mode echocardiogram with Doppler and color Doppler. Other Information Quality : GoodRhythm : NSR INDICATION Pulmonary Embolism 2D DIMENSIONS IVSd1.13 (0.7-1.1cm)LVDd3.65 (3.9-5.9cm) LVOT Diameter2.01 (1.8-2.4cm)PWd1.10 (0.7-1.1cm) IVSs1.56 (0.8-1.2cm)LVDs2.57 (2.5-4.0cm) FS (%) 29.5 %PWs1.45 (0.8-1.2cm) M-Mode DIMENSIONS Left Atrium (MM)2.85 (2.5-4.0cm)IVSd1.09 (0.7-1.1cm) Aortic Root3.32 (2.2-3.7cm)LVDd4.44 (4.0-5.6cm) Aortic Cusp Exc.1.82 (1.5-2.0cm)PWd1.38 (0.7-1.1cm) IVSs1.94 cmFS (%) 58 % LVDs1.88 (2.0-3.8cm)PWs2.09 cm Aortic Valve AoV Peak Wkfikdhy261.6cm/sAoV VTI29.8cmAO Peak GR.12mmHg LVOT Peak Csgcsojd606.2cm/sLVOT VTI21.48cmAO Mean GR.7mmHg JULIO (VMAX)1.05ov3VYP (VTI)1.56hq1OA P 1/2 Vdyu056ps Mitral Valve MV E Fdvtgqpv18.8cm/sMV DECEL [id number] A Quuubzzk498.7cm/s MV GZE23zdC/A ratio0.6MVA (PHT)2.47cm2 TDI Lateral E' Peak V4.07cm/sMedial E' Peak V3.10cm/sE/Lateral E'17.1 E/Medial E'22.5 Pulmonary Valve PV Peak Qbqgwqzh10.0cm/s Tricuspid Valve TR Peak Boirjhhv537do/sRAP LMMFFXEZ60tkSmUM Peak Gr.21mmHg VNOU93cnQe LEFT VENTRICLE The left ventricle is normal size. There is mild to moderate concentric left ventricular hypertrophy. The left ventricular function is normal. The left ventricular ejection fraction is within the normal range. The Ejection Fraction is 50-55%. There is normal LV segmental wall motion. Transmitral Doppler flow pattern is Grade I-abnormal relaxation pattern. RIGHT VENTRICLE The right ventricle is normal size. There is normal right ventricular wall thickness. The right ventricular systolic function is normal. ATRIA The left atrium is borderline dilated. The right atrium size is normal. The interatrial septum is intact with no evidence for an atrial septal defect. AORTIC VALVE The aortic valve is thickened but opens well. There is mild aortic regurgitation. There is no aortic valvular stenosis. There is no aortic valvular vegetation. MITRAL VALVE The mitral valve is thickened but opens well. There is no mitral valve stenosis. Mitral regurgitation is trace to mild. TRICUSPID VALVE The tricuspid valve leaflets are thickened , but open well. There is trace to mild tricuspid regurgitation. PULMONIC VALVE The pulmonic valve is not well visualized. There is no pulmonic valvular regurgitation. GREAT VESSELS The aortic root is normal in size. The IVC is normal in size and collapses >50% with inspiration. PERICARDIAL EFFUSION The pericardium appears normal. <Conclusion> The left ventricular function is normal. The left ventricular ejection fraction is within the normal range. The Ejection Fraction is 50-55%. Transmitral Doppler flow pattern is Grade I-abnormal relaxation pattern. Mitral regurgitation is trace to mild.
[2017-11-13] MEDS ORDERED: Iohexol 240 (50 ml) PO ONE (21:37)
[2017-11-14] MEDS: Levothyroxine 50 MCG TAB PO SCH (06:43)
[2017-11-14] MEDS ORDERED: Diatriz Meglumine/Diatriz Sod 30 ML BOTTLE PO ONE (08:00)
[2017-11-14] MEDS: Acetylcysteine 20% Inhal Soln (4ml) INH SCH ×2 (08:03→19:10)
[2017-11-14] MEDS: Levalbuterol 1.25 MG/3 ML Inhal Soln UD INH SCH ×2 (08:03→19:10)
--- NOTE | 2017-11-14 08:10 | CP.PCM.PN ---
Subjective - Date & Time of Evaluation Date of Evaluation: 11/14/17 Time of Evaluation: 07:55 - Subjective Subjective: Patient seen and examined bedside with Dr Storm. Patient anxious this morning and asking when Ct scan will be done. Patient reports epigastric discomfort yesterday afternoon and occs SOB. Patient using NC O2 sat 96%. Denies fever, cough, abd pain, dysuria this morning. For CT abd today AM Objective - Vital Signs/Intake and Output Vital Signs (last 24 hours): Temp Pulse Resp BP Pulse Ox 98.1 F 72 18 148/83 97 11/14/17 05:21 11/14/17 05:21 11/14/17 05:21 11/14/17 05:21 11/14/17 05:21 - Medications Medications: Current Medications Acetylcysteine (Acetylcysteine 20%) 2 ml INH RBID [facility] Last Admin: 11/14/17 08:03 Dose: Not Given Atorvastatin Calcium (Lipitor) 10 mg PO HS [facility] Last Admin: 11/13/17 21:40 Dose: 10 mg Cholecalciferol (Vitamin D) 1,000 intlu PO DAILY [facility] Last Admin: 11/13/17 08:21 Dose: 1,000 intlu Enalapril Maleate (Vasotec) 5 mg PO DAILY [facility] Last Admin: 11/13/17 08:20 Dose: 5 mg Enoxaparin Sodium (Lovenox) 70 mg SC Q12 [facility] PRN Reason: Protocol Last Admin: 11/13/17 21:40 Dose: 70 mg Famotidine (Pepcid) 20 mg PO BID [facility] Last Admin: 11/13/17 21:46 Dose: Not Given Gabapentin (Neurontin) 100 mg PO Q8 [facility] Last Admin: 11/14/17 00:47 Dose: Not Given Ceftriaxone Sodium 1 gm/ (Sodium Chloride) 100 mls @ 100 mls/hr IVPB DAILY [facility] PRN Reason: Protocol Last Admin: 11/13/17 10:35 Dose: 100 mls/hr Azithromycin 500 mg/ Sodium (Chloride) 250 mls @ 250 mls/hr IVPB DAILY [facility] PRN Reason: Protocol Last Admin: 11/13/17 10:35 Dose: 250 mls/hr Levalbuterol HCl (Xopenex) 1.25 mg INH RBID [facility] Last Admin: 11/14/17 08:03 Dose: Not Given Levothyroxine Sodium (Synthroid) 50 mcg PO DAILY@0630 [facility] Last Admin: 11/14/17 06:43 Dose: Not Given Lorazepam (Ativan) 1 mg PO DAILY [facility] Last Admin: 11/13/17 08:28 Dose: Not Given Multivitamins/Minerals (Therapeutic-M Tab) 1 tab PO DAILY [facility] Last Admin: 11/13/17 08:21 Dose: 1 tab Quetiapine Fumarate (Seroquel) 100 mg PO Q12 [facility] Last Admin: 11/13/17 21:40 Dose: 100 mg - Labs Labs: 11/13/17 08:10 11/13/17 08:10 - Constitutional Appears: Non-toxic, No Acute Distress - Head Exam Head Exam: ATRAUMATIC, NORMOCEPHALIC - Eye Exam Eye Exam: Normal appearance - ENT Exam ENT Exam: Mucous Membranes Moist - Neck Exam Neck Exam: Full ROM - Respiratory Exam Respiratory Exam: Clear to Ausculation Bilateral. absent: Rales, Rhonchi, Wheezes - Cardiovascular Exam Cardiovascular Exam: REGULAR RHYTHM, +S1, +S2 - GI/Abdominal Exam GI & Abdominal Exam: Soft, Normal Bowel Sounds. absent: Tenderness - Extremities Exam Extremities Exam: Normal Capillary Refill Additional comments: Right lower leg pedal edema 1+ - Back Exam Back Exam: NORMAL INSPECTION - Neurological Exam Neurological Exam: Alert, Awake, Oriented x3 - Psychiatric Exam Psychiatric exam: Anxious - Skin Skin Exam: Intact Assessment and Plan (1) Pulmonary embolism Assessment & Plan: Ct chest: subsegmental pulmonary arteries PE. 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 To r/o cuagulopathy -Hem-Onc consult appreciated: CT abd to r/o malignancy will be done today -Echo: EF 50-55 %. mild MR -C/w anticoagulation Status: Acute (2) Atelectasis Assessment & Plan: Subsegmental areas of atelectasis seen in the RML and ESPERANZA. These have been present on prior cat scans as well (as far back as ); ? chronicity raises possibility of subsegmental organized pneumonia. No areas of acute pneumonia seen on this study. Would use aerosol therapy with mucolytic agent and CPT with Acapella. Status: Acute
--- NOTE | 2017-11-14 08:40 | CP.PCM.CON ---
History of Present Illness - History of Present Illness History of Present Illness: The patient was seen at Dr. Patel's request. I have known this patient since 2007 when she suffered an acute pulmonary embolism in July 2007 and was treated at the local hospital and eventually took warfarin for 6 months. The patient has had a long history of psychiatric illness that has required multiple hospitalizations and continued care of psychiatrist.. She has been treated with various anti- psychotic medications. She is also a hypertensive with hypothyroidism and has been taking antihypertensives and thyroid replacement medication for more than 8 years. She has never been a smoker or diabetic and has never suffered a myocardial infarction or congestive cardiac failure. Her approximately 2 and half years back and since then the patient has been further depressed. Now she came to the hospital complaining of shortness of breath and was found to have multiple emboli on CT angios of the chest. She is being worked up for coagulopathy which is probably responsible for repeated pulmonary emboli. Physical examination shows a elderly slightly overweight frightened female who is alert awake and recognizes me readily. She was anxious and appeared mildly tachypneic but when asked to take slow breaths was able to breathe comfortably. Her heart rate was 78 bpm regular and her blood pressure was 136/74 mmHg. Her jugular venous pressure was not elevated and there was no edema over her lower extremity. The pedal pulses were well felt. Homans sign was negative. There was no calf tenderness. There were no carotid bruits. The apex was not palpable. The first and second heart sounds were normal. There was no murmur or gallop. There were no rales. Her abdomen was soft and liver and spleen are not palpable. Her electrocardiogram showed sinus rhythm with a tall slightly broader R wave in V1 though her QRS duration was 84 ms. There was mild left axis deviation and nonspecific ST-T wave changes. Review off her cardiograms going back to 3 years showed a similar pattern. An echocardiogram showed preserved left ventricular systolic function with a normal right ventricular size and function as well. The pulmonary artery systolic pressure did not appear to be elevated. Her lab data was noted. Her TSH was normal. BUN/creatinine were normal. Her troponin was normal. The findings of CT angio of the chest were noted. Impression: Recurrent pulmonary embolism in a patient who had pulmonary embolism in 2007 and again now. Long history of psychosis. Hypertension and hypothyroidism. The patient is stable from cardiovascular point of view at this juncture. She is being worked up for hypercoagulable state and possible abdominal malignancy which may promote such an occurrence. In the meantime she is appropriately anticoagulated Past Patient History - Infectious Disease Hx of Infectious Diseases: None - Tetanus Immunizations Tetanus Immunization: Unknown - Past Medical History & Family History Past Medical History?: Yes - Past Social History Smoking Status: Never Smoked Chewing Tobacco Use: No Cigar Use: No Alcohol: None Drugs: Denies - CARDIAC Hx Hypercholesterolemia: Yes Hx Hypertension: Yes - PULMONARY Hx Pulmonary Embolism: Yes (2007) Hx Tuberculosis: No - NEUROLOGICAL Hx Neurological Disorder: No Hx Seizures: No - HEENT Hx HEENT Problems: No - RENAL Hx Chronic Kidney Disease: No - ENDOCRINE/METABOLIC Hx Hypothyroidism: Yes - HEMATOLOGICAL/ONCOLOGICAL Hx Blood Disorders: No Hx Human Immunodeficiency Virus (HIV): No - INTEGUMENTARY Hx Dermatological Problems: No - MUSCULOSKELETAL/RHEUMATOLOGICAL Hx Musculoskeletal Disorders: No Hx Falls: No - GASTROINTESTINAL Hx Constipation: Yes - GENITOURINARY/GYNECOLOGICAL Hx Genitourinary Disorders: No Hx Sexually Transmitted Disorders: No - PSYCHIATRIC Hx Anxiety: Yes Hx Bipolar Disorder: Yes Hx Depression: Yes Hx Substance Use: No - SURGICAL HISTORY Hx Surgeries: Yes Hx Cholecystectomy: Yes - ANESTHESIA Hx Anesthesia: Yes Hx Anesthesia Reactions: No Meds Allergies/Adverse Reactions: Allergies Allergy/AdvReac Type Severity Reaction Status Date / Time levofloxacin [From Levaquin] Allergy RASH Verified 11/10/17 14:00 - Medications Medications: Current Medications Acetylcysteine (Acetylcysteine 20%) 2 ml INH RBID [facility] Last Admin: 11/14/17 08:03 Dose: Not Given Atorvastatin Calcium (Lipitor) 10 mg PO HS [facility] Last Admin: 11/13/17 21:40 Dose: 10 mg Cholecalciferol (Vitamin D) 1,000 intlu PO DAILY [facility] Last Admin: 11/13/17 08:21 Dose: 1,000 intlu Enalapril Maleate (Vasotec) 5 mg PO DAILY [facility] Last Admin: 11/13/17 08:20 Dose: 5 mg Enoxaparin Sodium (Lovenox) 70 mg SC Q12 [facility] PRN Reason: Protocol Last Admin: 11/13/17 21:40 Dose: 70 mg Famotidine (Pepcid) 20 mg PO BID [facility] Last Admin: 11/13/17 21:46 Dose: Not Given Gabapentin (Neurontin) 100 mg PO Q8 [facility] Last Admin: 11/14/17 00:47 Dose: Not Given Ceftriaxone Sodium 1 gm/ (Sodium Chloride) 100 mls @ 100 mls/hr IVPB DAILY [facility] PRN Reason: Protocol Last Admin: 11/13/17 10:35 Dose: 100 mls/hr Azithromycin 500 mg/ Sodium (Chloride) 250 mls @ 250 mls/hr IVPB DAILY [facility] PRN Reason: Protocol Last Admin: 11/13/17 10:35 Dose: 250 mls/hr Levalbuterol HCl (Xopenex) 1.25 mg INH RBID [facility] Last Admin: 11/14/17 08:03 Dose: Not Given Levothyroxine Sodium (Synthroid) 50 mcg PO DAILY@0630 [facility] Last Admin: 11/14/17 06:43 Dose: Not Given Lorazepam (Ativan) 1 mg PO DAILY [facility] Last Admin: 11/13/17 08:28 Dose: Not Given Multivitamins/Minerals (Therapeutic-M Tab) 1 tab PO DAILY [facility] Last Admin: 11/13/17 08:21 Dose: 1 tab Quetiapine Fumarate (Seroquel) 100 mg PO Q12 [facility] Last Admin: 11/13/17 21:40 Dose: 100 mg Results - Vital Signs Recent Vital Signs: Last Vital Signs Temp 98.2 F 11/14/17 08:18 Pulse 79 11/14/17 08:18 Resp 18 11/14/17 08:18 BP 158/94 H 11/14/17 08:18 Pulse Ox 96 11/14/17 08:18 - Labs Result Diagrams: 11/13/17 08:10 11/13/17 08:10 Labs: Laboratory Results - last 24 hr 11/11/17 11/13/17 19:00 08:10 Sodium 141 Potassium 4.1 Chloride 105 Carbon Dioxide 25 Anion Gap 15 BUN 17 Creatinine 0.8 Est GFR ( Amer) > 60 Est GFR (Non-Af Amer) > 60 Random Glucose 107 H Calcium 8.7 Ur L.pneumophila Ag Negative
[2017-11-14] MEDS: Enoxaparin 80 mg Syringe SC SCH ×2 (10:37→21:44)
[2017-11-14] MEDS: Multivitamin With Minerals Tab PO SCH (10:41)
[2017-11-14] MEDS: Cholecalciferol 1,000 INTLU TAB PO SCH (10:42)
[2017-11-14] MEDS: Azithromycin 500 MG in Sodium Chloride 0.9% 250 ML IVPB SCH (10:42)
--- NOTE | 2017-11-14 11:36 | CP.PCM.PN ---
Subjective - Date & Time of Evaluation Date of Evaluation: 11/14/17 Time of Evaluation: 11:17 - Subjective Subjective: Pt is much more anxious today. She is scheduled for a CT scan of the abdomen today, and is very nervous about it. She is slightly short of breath, but more when she gets agitated. She is on lovenox ad antibiotics. Objective - Vital Signs/Intake and Output Vital Signs (last 24 hours): Temp Pulse Resp BP Pulse Ox 98.2 F 79 18 158/94 H 96 11/14/17 08:18 11/14/17 08:18 11/14/17 08:18 11/14/17 08:18 11/14/17 08:18 - Medications Medications: Current Medications Acetylcysteine (Acetylcysteine 20%) 2 ml INH RBID [facility] Last Admin: 11/14/17 08:03 Dose: Not Given Atorvastatin Calcium (Lipitor) 10 mg PO HS [facility] Last Admin: 11/13/17 21:40 Dose: 10 mg Cholecalciferol (Vitamin D) 1,000 intlu PO DAILY [facility] Last Admin: 11/14/17 10:42 Dose: 1,000 intlu Enalapril Maleate (Vasotec) 5 mg PO DAILY [facility] Enoxaparin Sodium (Lovenox) 70 mg SC Q12 [facility] PRN Reason: Protocol Last Admin: 11/14/17 10:37 Dose: 70 mg Famotidine (Pepcid) 20 mg PO BID [facility] Last Admin: 11/14/17 10:39 Dose: 20 mg Gabapentin (Neurontin) 100 mg PO Q8 [facility] Last Admin: 11/14/17 10:38 Dose: 100 mg Azithromycin 500 mg/ Sodium (Chloride) 250 mls @ 250 mls/hr IVPB DAILY [facility] PRN Reason: Protocol Last Admin: 11/14/17 10:42 Dose: 250 mls/hr Levalbuterol HCl (Xopenex) 1.25 mg INH RBID [facility] Last Admin: 11/14/17 08:03 Dose: Not Given Levothyroxine Sodium (Synthroid) 50 mcg PO DAILY@0630 [facility] Last Admin: 11/14/17 06:43 Dose: Not Given Lorazepam (Ativan) 1 mg PO DAILY [facility] Lorazepam (Ativan) 0.5 mg PO ONCE ONE Stop: 11/14/17 10:41 Multivitamins/Minerals (Therapeutic-M Tab) 1 tab PO DAILY [facility] Last Admin: 11/14/17 10:41 Dose: 1 tab Quetiapine Fumarate (Seroquel) 100 mg PO Q12 [facility] Last Admin: 11/14/17 08:58 Dose: 100 mg - Labs Labs: 11/13/17 08:10 11/13/17 08:10
[2017-11-14] MEDS ORDERED: Sodium Chloride 0.9% 50 ML IV ONE (13:37)
[2017-11-14] MEDS ORDERED: Iohexol 300 100 ML IJ ONE (13:37)
--- NOTE | 2017-11-14 14:23 | CT ---
Date of service: 11/14/2017 PROCEDURE: CT Abdomen and Pelvis with contrast HISTORY: bilateral lung emboli COMPARISON: None. TECHNIQUE: Contrast dose: 95 mL Omnipaque 300 Radiation dose: Total exam DLP = 656.3 mGy-cm. This CT exam was performed using one or more of the following dose reduction techniques: Automated exposure control, adjustment of the mA and/or kV according to patient size, and/or use of iterative reconstruction technique. FINDINGS: LOWER THORAX: Bibasilar atelectasis/scarring. Small subsegmental pulmonary emboli redemonstrated. LIVER: Hepatic steatosis. No gross lesion or ductal dilatation. GALLBLADDER AND BILE DUCTS: Prior cholecystectomy surgical clips in place. 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 No ductal dilatation. SPLEEN: Unremarkable. ADRENALS: Unremarkable. No mass. KIDNEYS AND URETERS: Bilateral renal cysts, the largest on the right measures 3.9 x 3.9 cm. No hydronephrosis. No solid mass. VASCULATURE: Unremarkable. No aortic aneurysm. BOWEL: Large hiatal hernia. No obstruction. No gross mural thickening. APPENDIX: No findings to suggest acute appendicitis. PERITONEUM: Moderate bilateral fat containing inguinal hernias. No free fluid. No free air. LYMPH NODES: Unremarkable. No enlarged lymph nodes. BLADDER: Unremarkable. REPRODUCTIVE: Unremarkable. BONES: No acute fracture. Degenerative changes. OTHER FINDINGS: None. 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 Diffuse hepatic steatosis. Bilateral renal cysts. Large hiatal hernia. Additional findings as above.
--- NOTE | 2017-11-14 14:43 | CP.PCM.PN ---
Subjective - Date & Time of Evaluation Date of Evaluation: 11/14/17 Time of Evaluation: 14:43 - Subjective Subjective: Patient anxious c/o sob. Objective - Vital Signs/Intake and Output Vital Signs (last 24 hours): Temp Pulse Resp BP Pulse Ox 98 F 80 18 135/80 94 L 11/14/17 12:00 11/14/17 12:00 11/14/17 12:00 11/14/17 12:00 11/14/17 13:01 - Medications Medications: Current Medications Acetylcysteine (Acetylcysteine 20%) 2 ml INH RBID [facility] Last Admin: 11/14/17 08:03 Dose: Not Given Atorvastatin Calcium (Lipitor) 10 mg PO HS [facility] Last Admin: 11/13/17 21:40 Dose: 10 mg Cholecalciferol (Vitamin D) 1,000 intlu PO DAILY [facility] Last Admin: 11/14/17 10:42 Dose: 1,000 intlu Enalapril Maleate (Vasotec) 5 mg PO DAILY [facility] Enoxaparin Sodium (Lovenox) 70 mg SC Q12 [facility] PRN Reason: Protocol Last Admin: 11/14/17 10:37 Dose: 70 mg Famotidine (Pepcid) 20 mg PO BID [facility] Last Admin: 11/14/17 10:39 Dose: 20 mg Gabapentin (Neurontin) 100 mg PO Q8 [facility] Last Admin: 11/14/17 10:38 Dose: 100 mg Azithromycin 500 mg/ Sodium (Chloride) 250 mls @ 250 mls/hr IVPB DAILY [facility] PRN Reason: Protocol Last Admin: 11/14/17 10:42 Dose: 250 mls/hr Levalbuterol HCl (Xopenex) 1.25 mg INH RBID [facility] Last Admin: 11/14/17 08:03 Dose: Not Given Levothyroxine Sodium (Synthroid) 50 mcg PO DAILY@0630 [facility] Last Admin: 11/14/17 06:43 Dose: Not Given Lorazepam (Ativan) 1 mg PO DAILY [facility] Multivitamins/Minerals (Therapeutic-M Tab) 1 tab PO DAILY [facility] Last Admin: 11/14/17 10:41 Dose: 1 tab Quetiapine Fumarate (Seroquel) 100 mg PO Q12 [facility] Last Admin: 11/14/17 08:58 Dose: 100 mg - Labs Labs: 11/13/17 08:10 11/13/17 08:10 - Constitutional Appears: Agitated, Chronically Ill - Head Exam Head Exam: ATRAUMATIC, NORMAL INSPECTION, NORMOCEPHALIC - Eye Exam Eye Exam: Normal appearance - ENT Exam ENT Exam: Mucous Membranes Moist - Neck Exam Neck Exam: Full ROM - Respiratory Exam Respiratory Exam: Decreased Breath Sounds - Cardiovascular Exam Cardiovascular Exam: REGULAR RHYTHM, +S1, +S2 - GI/Abdominal Exam GI & Abdominal Exam: Soft, Normal Bowel Sounds - Neurological Exam Neurological Exam: Alert, Awake, Oriented x3 - Psychiatric Exam Psychiatric exam: Anxious - Skin Skin Exam: Normal Color Assessment and Plan (1) Pneumonia Status: Acute (2) Hypoxemia Status: Acute (3) Anxiety Status: Chronic (4) Anxiety disorder Status: Chronic (5) Bipolar disorder Status: Chronic (6) Depression Status: Chronic (7) HTN (hypertension) Status: Chronic (8) Hypothyroid Status: Chronic (9) Pulmonary embolism Status: Acute - Assessment and Plan (Free Text) Plan: Continue present rx
--- NOTE | 2017-11-14 17:54 | CP.PCM.PN ---
Subjective - Date & Time of Evaluation Date of Evaluation: 11/14/17 Time of Evaluation: 17:53 - Subjective Subjective: I D NOTE CONSULT CALled FOR ON11/10/17 I WAS AWAY AT THAT TIME TILL 11/13/17 PATIENT HAS PE,DISCUSSED c NO NEED FOR ZITHROMAX,HAVE DISCONTINUED Objective - Vital Signs/Intake and Output Vital Signs (last 24 hours): Temp Pulse Resp BP Pulse Ox 99.1 F 91 H 20 144/82 97 11/14/17 16:34 11/14/17 16:34 11/14/17 16:34 11/14/17 16:34 11/14/17 16:34 - Medications Medications: Current Medications Acetylcysteine (Acetylcysteine 20%) 2 ml INH RBID [facility] Last Admin: 11/14/17 08:03 Dose: Not Given Atorvastatin Calcium (Lipitor) 10 mg PO HS [facility] Last Admin: 11/13/17 21:40 Dose: 10 mg Cholecalciferol (Vitamin D) 1,000 intlu PO DAILY [facility] Last Admin: 11/14/17 10:42 Dose: 1,000 intlu Enalapril Maleate (Vasotec) 5 mg PO DAILY [facility] Enoxaparin Sodium (Lovenox) 70 mg SC Q12 [facility] PRN Reason: Protocol Last Admin: 11/14/17 10:37 Dose: 70 mg Famotidine (Pepcid) 20 mg PO BID [facility] Last Admin: 11/14/17 17:09 Dose: 20 mg Gabapentin (Neurontin) 100 mg PO Q8 [facility] Last Admin: 11/14/17 17:07 Dose: 100 mg Levalbuterol HCl (Xopenex) 1.25 mg INH RBID [facility] Last Admin: 11/14/17 08:03 Dose: Not Given Levothyroxine Sodium (Synthroid) 50 mcg PO DAILY@0630 [facility] Last Admin: 11/14/17 06:43 Dose: Not Given Lorazepam (Ativan) 1 mg PO DAILY [facility] Multivitamins/Minerals (Therapeutic-M Tab) 1 tab PO DAILY [facility] Last Admin: 11/14/17 10:41 Dose: 1 tab Quetiapine Fumarate (Seroquel) 100 mg PO Q12 [facility] Last Admin: 11/14/17 08:58 Dose: 100 mg - Labs Labs: 11/13/17 08:10 11/13/17 08:10
[2017-11-15] MEDS: Levothyroxine 50 MCG TAB PO SCH (06:34)
--- NOTE | 2017-11-15 07:32 | CP.PCM.PN ---
Subjective - Date & Time of Evaluation Date of Evaluation: 11/15/17 Time of Evaluation: 07:40 - Subjective Subjective: Pt is seen and examined with Dr. Storm. Pt is laying on bed comfortable. She still complain of SOB, and constipation and dry nose. She is also anxious and worry about her diagnosis, she is annoyed that they are taking so much blood and radio test, with no answer, other than that she denies having fever, chest pain, abdominal pain, dysuria, polyuria or any other symptoms. 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 Objective - Vital Signs/Intake and Output Vital Signs (last 24 hours): Temp Pulse Resp BP Pulse Ox 98.4 F 78 18 158/81 H 94 L 11/15/17 04:50 11/15/17 04:50 11/15/17 04:50 11/15/17 04:50 11/15/17 04:50 - Medications Medications: Current Medications Acetylcysteine (Acetylcysteine 20%) 2 ml INH RBID [facility] Last Admin: 11/14/17 19:10 Dose: 2 ml Atorvastatin Calcium (Lipitor) 10 mg PO HS [facility] Last Admin: 11/14/17 21:44 Dose: 10 mg Cholecalciferol (Vitamin D) 1,000 intlu PO DAILY [facility] Last Admin: 11/14/17 10:42 Dose: 1,000 intlu Enalapril Maleate (Vasotec) 5 mg PO DAILY [facility] Enoxaparin Sodium (Lovenox) 70 mg SC Q12 [facility] PRN Reason: Protocol Last Admin: 11/14/17 21:44 Dose: 70 mg Famotidine (Pepcid) 20 mg PO BID [facility] Last Admin: 11/14/17 17:09 Dose: 20 mg Gabapentin (Neurontin) 100 mg PO Q8 [facility] Last Admin: 11/15/17 01:09 Dose: Not Given Levalbuterol HCl (Xopenex) 1.25 mg INH RBID [facility] Last Admin: 11/14/17 19:10 Dose: 1.25 mg Levothyroxine Sodium (Synthroid) 50 mcg PO DAILY@0630 [facility] Last Admin: 11/15/17 06:34 Dose: 50 mcg Lorazepam (Ativan) 1 mg PO DAILY [facility] Multivitamins/Minerals (Therapeutic-M Tab) 1 tab PO DAILY [facility] Last Admin: 11/14/17 10:41 Dose: 1 tab Quetiapine Fumarate (Seroquel) 100 mg PO Q12 [facility] Last Admin: 11/14/17 21:44 Dose: 100 mg - Labs Labs: 11/13/17 08:10 11/13/17 08:10 - Constitutional Appears: Well, Non-toxic, No Acute Distress - Head Exam Head Exam: ATRAUMATIC, NORMAL INSPECTION, NORMOCEPHALIC - Eye Exam Eye Exam: EOMI, Normal appearance, PERRL Pupil Exam: NORMAL ACCOMODATION, PERRL - ENT Exam ENT Exam: Mucous Membranes Moist, Normal Exam - Neck Exam Neck Exam: Full ROM, Normal Inspection - Respiratory Exam Respiratory Exam: Clear to Ausculation Bilateral, NORMAL BREATHING PATTERN. absent: Rales, Rhonchi, Wheezes, Respiratory Distress - Cardiovascular Exam Cardiovascular Exam: REGULAR RHYTHM, +S1, +S2 - GI/Abdominal Exam GI & Abdominal Exam: Soft, Normal Bowel Sounds - Neurological Exam Neurological Exam: Alert, Awake, Oriented x3 - Psychiatric Exam Psychiatric exam: Anxious - Skin Skin Exam: Dry, Intact, Normal Color, Warm Assessment and Plan (1) Pulmonary embolism Assessment & Plan: Pt is 82 yo f with PE CT chest: subsegmental pulm arteries PE. 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
[2017-11-15] MEDS: Acetylcysteine 20% Inhal Soln (4ml) INH SCH ×2 (07:38→19:18)
[2017-11-15] MEDS: Levalbuterol 1.25 MG/3 ML Inhal Soln UD INH SCH ×2 (07:38→19:17)
--- NOTE | 2017-11-15 08:00 | CP.PCM.CON ---
History of Present Illness - History of Present Illness History of Present Illness: Psychiatry consult note CC: I'm having difficulty breathing HPI: 82 yo female, history of personality disorder, generalized anxiety disorder , presents w/ worsening SOB. Patient has chronic anxiety and states that her difficulties breathing make her anxiety worse. She denies worsened depression; no AH/VH/paranoia/delusions/SI/HI. She does not want inpatient psychiatric admission at this time. [facility] Drier expressed concern to patient that increasing her medications will put her at higher risk of side effects given her advanced age and comorbid medical issues. PAST PSYCH HX: Pt reported multiple prior psychiatric admissions for anxiety and depression in the last 20 years, including [facility] Hx of multiple medication trials and 2 courses of ECT with poor response. No hx of prior suicide attempt. No hx of psychosis. SUBSTANCE ABUSE HX: She denied hx of alcohol and illicit drug use. FAMILY HX: Pt denied. MEDICAL HX: HTN, Hyperlipidemia. SOCIAL HX: , lives alone, has 40 hr [employer], has one son and two daughters, worked in a Memoir[employer]. From [place] ([facility] Impression: 82 yo female w/ personality disorder, TREY, and mood disorder NOS, presents w/ chronic anxiety. Patient does not need acute inpatient psychiatric admission at this time. 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 -Continued outpatient psychiatric follow-up Past Patient History - Infectious Disease Hx of Infectious Diseases: None - Tetanus Immunizations Tetanus Immunization: Unknown - Past Medical History & Family History Past Medical History?: Yes - Past Social History Smoking Status: Never Smoked Chewing Tobacco Use: No Cigar Use: No Alcohol: None Drugs: Denies - CARDIAC Hx Hypertension: Yes - PULMONARY Hx Pulmonary Embolism: Yes (2007) Hx Tuberculosis: No - NEUROLOGICAL Hx Neurological Disorder: No Hx Seizures: No - HEENT Hx HEENT Problems: No - RENAL Hx Chronic Kidney Disease: No - ENDOCRINE/METABOLIC Hx Hypothyroidism: Yes - HEMATOLOGICAL/ONCOLOGICAL Hx Blood Disorders: No Hx Human Immunodeficiency Virus (HIV): No - INTEGUMENTARY Hx Dermatological Problems: No - MUSCULOSKELETAL/RHEUMATOLOGICAL Hx Musculoskeletal Disorders: No Hx Falls: No - GASTROINTESTINAL Hx Constipation: Yes - GENITOURINARY/GYNECOLOGICAL Hx Genitourinary Disorders: No Hx Sexually Transmitted Disorders: No - PSYCHIATRIC Hx Anxiety: Yes Hx Bipolar Disorder: Yes Hx Depression: Yes Hx Substance Use: No - SURGICAL HISTORY Hx Surgeries: Yes Hx Cholecystectomy: Yes - ANESTHESIA Hx Anesthesia: Yes Hx Anesthesia Reactions: No Meds Allergies/Adverse Reactions: Allergies Allergy/AdvReac Type Severity Reaction Status Date / Time levofloxacin [From Levaquin] Allergy RASH Verified 11/10/17 14:00 - Medications Medications: Current Medications Acetylcysteine (Acetylcysteine 20%) 2 ml INH RBID [facility] Last Admin: 11/15/17 07:38 Dose: 2 ml Atorvastatin Calcium (Lipitor) 10 mg PO HS [facility] Last Admin: 11/14/17 21:44 Dose: 10 mg Cholecalciferol (Vitamin D) 1,000 intlu PO DAILY [facility] Last Admin: 11/14/17 10:42 Dose: 1,000 intlu Enalapril Maleate (Vasotec) 5 mg PO DAILY [facility] Enoxaparin Sodium (Lovenox) 70 mg SC Q12 [facility] PRN Reason: Protocol Last Admin: 11/14/17 21:44 Dose: 70 mg Famotidine (Pepcid) 20 mg PO BID [facility] Last Admin: 11/14/17 17:09 Dose: 20 mg Gabapentin (Neurontin) 100 mg PO Q8 [facility] Last Admin: 11/15/17 01:09 Dose: Not Given Levalbuterol HCl (Xopenex) 1.25 mg INH RBID [facility] Last Admin: 11/15/17 07:38 Dose: 1.25 mg Levothyroxine Sodium (Synthroid) 50 mcg PO DAILY@0630 [facility] Last Admin: 11/15/17 06:34 Dose: 50 mcg Lorazepam (Ativan) 1 mg PO DAILY [facility] Multivitamins/Minerals (Therapeutic-M Tab) 1 tab PO DAILY [facility] Last Admin: 11/14/17 10:41 Dose: 1 tab Quetiapine Fumarate (Seroquel) 100 mg PO Q12 [facility] Last Admin: 11/14/17 21:44 Dose: 100 mg Results - Vital Signs Recent Vital Signs: Last Vital Signs Temp 97.8 F 11/15/17 07:49 Pulse 77 11/15/17 07:49 Resp 18 11/15/17 07:49 BP 158/78 H 11/15/17 07:49 Pulse Ox 94 L 11/15/17 07:49 - Labs Result Diagrams: 11/13/17 08:10 11/13/17 08:10 Labs: Laboratory Results - last 24 hr 07/07/18 09:33 Mycoplasma pneumon IgM 117
[2017-11-15] MEDS: Enoxaparin 80 mg Syringe SC SCH ×2 (09:49→21:28)
[2017-11-15] MEDS: Multivitamin With Minerals Tab PO SCH (09:51)
[2017-11-15] MEDS: Cholecalciferol 1,000 INTLU TAB PO SCH (09:52)
[2017-11-15 10:27] LABS: ALB/GLOB RATIO 1.4 (1.0-2.1); ALBUMIN 3.6 g/dL (3.5-5.0); ALT/SGPT 45 U/L (9-52); AST/SGOT 53 U/L (14-36); BILIRUBIN,DIRECT 0.3 mg/ml (0.0-0.4); BLOOD UREA NITROGEN 11 mg/dl (7-17); CALCIUM 8.9 mg/dL (8.4-10.2); GFR AFRICAN-AMERICAN > 60; GFR NON-AFRICAN AMERICAN > 60
--- NOTE | 2017-11-15 10:30 | CP.PCM.PN ---
Subjective - Date & Time of Evaluation Date of Evaluation: 11/15/17 Time of Evaluation: 09:40 - Subjective Subjective: Very anxious re recent CT abd scan Otherwise has no particular symptoms Telemetry shows steady sinus rhythm at physiologic rates BP 136/70 mm Hg No gallop no rales The findings of CT abd discussed with Dr. Amanda Bueno from cardiac point of view (will sign off the case) Objective - Vital Signs/Intake and Output Vital Signs (last 24 hours): Temp Pulse Resp BP Pulse Ox 97.8 F 77 18 158/78 H 94 L 11/15/17 07:49 11/15/17 07:49 11/15/17 07:49 11/15/17 07:49 11/15/17 07:49 - Medications Medications: Current Medications Acetylcysteine (Acetylcysteine 20%) 2 ml INH RBID [facility] Last Admin: 11/15/17 07:38 Dose: 2 ml Atorvastatin Calcium (Lipitor) 10 mg PO HS [facility] Last Admin: 11/14/17 21:44 Dose: 10 mg Cholecalciferol (Vitamin D) 1,000 intlu PO DAILY [facility] Last Admin: 11/15/17 09:52 Dose: 1,000 intlu Enalapril Maleate (Vasotec) 5 mg PO DAILY [facility] Last Admin: 11/15/17 09:51 Dose: 5 mg Enoxaparin Sodium (Lovenox) 70 mg SC Q12 [facility] PRN Reason: Protocol Last Admin: 11/15/17 09:49 Dose: 70 mg Famotidine (Pepcid) 20 mg PO BID [facility] Last Admin: 11/15/17 09:51 Dose: 20 mg Gabapentin (Neurontin) 100 mg PO Q8 [facility] Last Admin: 11/15/17 09:50 Dose: 100 mg Ceftriaxone Sodium 1 gm/ (Sodium Chloride) 100 mls @ 100 mls/hr IVPB DAILY [facility] PRN Reason: Protocol Levalbuterol HCl (Xopenex) 1.25 mg INH RBID [facility] Last Admin: 11/15/17 07:38 Dose: 1.25 mg Levothyroxine Sodium (Synthroid) 50 mcg PO DAILY@0630 [facility] Last Admin: 11/15/17 06:34 Dose: 50 mcg Lorazepam (Ativan) 1 mg PO DAILY [facility] Last Admin: 11/15/17 09:49 Dose: 1 mg Multivitamins/Minerals (Therapeutic-M Tab) 1 tab PO DAILY [facility] Last Admin: 11/15/17 09:51 Dose: 1 tab Quetiapine Fumarate (Seroquel) 100 mg PO Q12 [facility] Last Admin: 11/15/17 09:51 Dose: 100 mg - Labs Labs: 11/13/17 08:10 11/13/17 08:10
[2017-11-15] MEDS ORDERED: Iohexol 240 (50 ml) PO ONE (11:53)
--- NOTE | 2017-11-15 12:06 | CP.PCM.PN ---
Subjective - Date & Time of Evaluation Date of Evaluation: 11/15/17 Time of Evaluation: 12:07 - Subjective Subjective: Patient axis still at times c/o sob. The ctscan of abdomen reveled a pancreatic mass. The nature of the mass is not clear and pathology will be necessary for further dx and rx. Case discussed with IP the best way is to have an IUS. At the present time will continue present. Anticoagulation with lovenox, in care of procedure will hold it. Will follow GI consult. Objective - Vital Signs/Intake and Output Vital Signs (last 24 hours): Temp Pulse Resp BP Pulse Ox 98.2 F 89 18 106/69 92 L 11/15/17 11:42 11/15/17 11:42 11/15/17 11:42 11/15/17 11:42 11/15/17 11:42 - Medications Medications: Current Medications Acetylcysteine (Acetylcysteine 20%) 2 ml INH RBID [facility] Last Admin: 11/15/17 07:38 Dose: 2 ml Atorvastatin Calcium (Lipitor) 10 mg PO HS [facility] Last Admin: 11/14/17 21:44 Dose: 10 mg Cholecalciferol (Vitamin D) 1,000 intlu PO DAILY [facility] Last Admin: 11/15/17 09:52 Dose: 1,000 intlu Enalapril Maleate (Vasotec) 5 mg PO DAILY [facility] Last Admin: 11/15/17 09:51 Dose: 5 mg Enoxaparin Sodium (Lovenox) 70 mg SC Q12 [facility] PRN Reason: Protocol Last Admin: 11/15/17 09:49 Dose: 70 mg Famotidine (Pepcid) 20 mg PO BID [facility] Last Admin: 11/15/17 09:51 Dose: 20 mg Gabapentin (Neurontin) 100 mg PO Q8 [facility] Last Admin: 11/15/17 09:50 Dose: 100 mg Ceftriaxone Sodium 1 gm/ (Sodium Chloride) 100 mls @ 100 mls/hr IVPB DAILY [facility] PRN Reason: Protocol Iohexol (Omnipaque 240 (50 Ml)) 50 ml PO ONCE ONE Stop: 11/15/17 11:54 Levalbuterol HCl (Xopenex) 1.25 mg INH RBID [facility] Last Admin: 11/15/17 07:38 Dose: 1.25 mg Levothyroxine Sodium (Synthroid) 50 mcg PO DAILY@0630 [facility] Last Admin: 11/15/17 06:34 Dose: 50 mcg Lorazepam (Ativan) 1 mg PO DAILY [facility] Last Admin: 11/15/17 09:49 Dose: 1 mg Multivitamins/Minerals (Therapeutic-M Tab) 1 tab PO DAILY [facility] Last Admin: 11/15/17 09:51 Dose: 1 tab Quetiapine Fumarate (Seroquel) 100 mg PO Q12 [facility] Last Admin: 11/15/17 09:51 Dose: 100 mg - Labs Labs: 11/13/17 08:10 11/15/17 09:20 - Constitutional Appears: Chronically Ill - Head Exam Head Exam: ATRAUMATIC, NORMAL INSPECTION, NORMOCEPHALIC - Eye Exam Eye Exam: Normal appearance - ENT Exam ENT Exam: Mucous Membranes Moist - Neck Exam Neck Exam: Full ROM - Respiratory Exam Respiratory Exam: Decreased Breath Sounds - Cardiovascular Exam Cardiovascular Exam: REGULAR RHYTHM, +S1, +S2 - GI/Abdominal Exam GI & Abdominal Exam: Soft, Normal Bowel Sounds - Extremities Exam Extremities Exam: Full ROM - Neurological Exam Neurological Exam: Alert, Awake, Oriented x3 - Psychiatric Exam Psychiatric exam: Anxious - Skin Skin Exam: Normal Color Assessment and Plan (1) Pneumonia Status: Acute (2) Hypoxemia Status: Acute (3) Anxiety Status: Chronic (4) Anxiety disorder Status: Chronic (5) Bipolar disorder Status: Chronic (6) Depression Status: Chronic (7) HTN (hypertension) Status: Chronic (8) Hypothyroid Status: Chronic (9) Pulmonary embolism Status: Acute (10) Pancreatic mass Status: Acute - Assessment and Plan (Free Text) Plan: As above.
[2017-11-16] MEDS: Levothyroxine 50 MCG TAB PO SCH (06:39)
[2017-11-16] MEDS: Acetylcysteine 20% Inhal Soln (4ml) INH SCH ×2 (07:53→20:33)
[2017-11-16] MEDS: Levalbuterol 1.25 MG/3 ML Inhal Soln UD INH SCH ×2 (07:53→20:33)
[2017-11-16] MEDS: Enoxaparin 80 mg Syringe SC SCH ×2 (08:47→21:18)
[2017-11-16] MEDS: Multivitamin With Minerals Tab PO SCH (08:48)
[2017-11-16] MEDS: Cholecalciferol 1,000 INTLU TAB PO SCH (08:50)
--- NOTE | 2017-11-16 09:14 | CP.PCM.PN ---
Subjective - Date & Time of Evaluation Date of Evaluation: 11/16/17 Time of Evaluation: 09:15 - Subjective Subjective: No changes in her general condition. Discussed with Dr Rockwell about the pancreatic mass, he will see the patient on consult. The patient was informed of the ct report. I try to contact the son Alok no answer. The plan is to complete the rx for pneumonia, continue anti coagulation with lovenox (if the patient will need a procedure will be easy to hold the lovenox), will need a better picture with better perfusion for this reason will repeat the ctscan with contrast. Objective - Vital Signs/Intake and Output Vital Signs (last 24 hours): Temp Pulse Resp BP Pulse Ox 97.8 F 82 20 134/83 95 11/16/17 08:13 11/16/17 08:13 11/16/17 08:13 11/16/17 08:13 11/16/17 08:13 - Medications Medications: Current Medications Acetylcysteine (Acetylcysteine 20%) 2 ml INH RBID [facility] Last Admin: 11/16/17 07:53 Dose: 2 ml Atorvastatin Calcium (Lipitor) 10 mg PO HS [facility] Last Admin: 11/15/17 21:28 Dose: 10 mg Cholecalciferol (Vitamin D) 1,000 intlu PO DAILY [facility] Last Admin: 11/16/17 08:50 Dose: 1,000 intlu Enalapril Maleate (Vasotec) 5 mg PO DAILY [facility] Last Admin: 11/16/17 08:49 Dose: 5 mg Enoxaparin Sodium (Lovenox) 70 mg SC Q12 [facility] PRN Reason: Protocol Last Admin: 11/16/17 08:47 Dose: 70 mg Famotidine (Pepcid) 20 mg PO BID [facility] Last Admin: 11/16/17 08:48 Dose: 20 mg Gabapentin (Neurontin) 100 mg PO Q8 [facility] Last Admin: 11/16/17 08:47 Dose: 100 mg Ceftriaxone Sodium 1 gm/ (Sodium Chloride) 100 mls @ 100 mls/hr IVPB DAILY [facility] PRN Reason: Protocol Last Admin: 11/15/17 16:09 Dose: 100 mls/hr Levalbuterol HCl (Xopenex) 1.25 mg INH RBID [facility] Last Admin: 11/16/17 07:53 Dose: 1.25 mg Levothyroxine Sodium (Synthroid) 50 mcg PO DAILY@0630 [facility] Last Admin: 11/16/17 06:39 Dose: 50 mcg Lorazepam (Ativan) 1 mg PO DAILY [facility] Last Admin: 11/16/17 08:46 Dose: 1 mg Multivitamins/Minerals (Therapeutic-M Tab) 1 tab PO DAILY [facility] Last Admin: 11/16/17 08:48 Dose: 1 tab Quetiapine Fumarate (Seroquel) 100 mg PO Q12 [facility] Last Admin: 11/16/17 08:48 Dose: 100 mg - Labs Labs: 11/13/17 08:10 11/15/17 09:20 - Constitutional Appears: Chronically Ill - Head Exam Head Exam: ATRAUMATIC, NORMAL INSPECTION, NORMOCEPHALIC - Eye Exam Eye Exam: Normal appearance - ENT Exam ENT Exam: Mucous Membranes Moist - Respiratory Exam Respiratory Exam: Decreased Breath Sounds - Cardiovascular Exam Cardiovascular Exam: REGULAR RHYTHM, +S1, +S2 - GI/Abdominal Exam GI & Abdominal Exam: Soft, Normal Bowel Sounds - Extremities Exam Extremities Exam: Normal Inspection - Neurological Exam Neurological Exam: Alert, Awake, Oriented x3 - Psychiatric Exam Psychiatric exam: Anxious - Skin Skin Exam: Normal Color Assessment and Plan (1) Pneumonia Status: Acute (2) Hypoxemia Status: Acute (3) Anxiety Status: Chronic (4) Anxiety disorder Status: Chronic (5) Bipolar disorder Status: Chronic (6) Depression Status: Chronic (7) HTN (hypertension) Status: Chronic (8) Hypothyroid Status: Chronic (9) Pulmonary embolism Status: Acute (10) Pancreatic mass Status: Acute - Assessment and Plan (Free Text) Plan: As above.
--- NOTE | 2017-11-16 09:37 | CP.PCM.PN ---
Subjective - Date & Time of Evaluation Date of Evaluation: 11/16/17 Time of Evaluation: 09:19 - Subjective Subjective: Pt was told about the mass in the pancreas which is only 2x2 cm in size . she is extremely anxious and refuses any surgical intervention at this time. Dr. Donnelly will speak with her family and see if the situation can be taken care of. Objective - Vital Signs/Intake and Output Vital Signs (last 24 hours): Temp Pulse Resp BP Pulse Ox 97.8 F 82 20 134/83 95 11/16/17 08:13 11/16/17 08:13 11/16/17 08:13 11/16/17 08:13 11/16/17 08:13 - Medications Medications: Current Medications Acetylcysteine (Acetylcysteine 20%) 2 ml INH RBID [facility] Last Admin: 11/16/17 07:53 Dose: 2 ml Atorvastatin Calcium (Lipitor) 10 mg PO HS [facility] Last Admin: 11/15/17 21:28 Dose: 10 mg Cholecalciferol (Vitamin D) 1,000 intlu PO DAILY [facility] Last Admin: 11/16/17 08:50 Dose: 1,000 intlu Enalapril Maleate (Vasotec) 5 mg PO DAILY [facility] Last Admin: 11/16/17 08:49 Dose: 5 mg Enoxaparin Sodium (Lovenox) 70 mg SC Q12 [facility] PRN Reason: Protocol Last Admin: 11/16/17 08:47 Dose: 70 mg Famotidine (Pepcid) 20 mg PO BID [facility] Last Admin: 11/16/17 08:48 Dose: 20 mg Gabapentin (Neurontin) 100 mg PO Q8 [facility] Last Admin: 11/16/17 08:47 Dose: 100 mg Ceftriaxone Sodium 1 gm/ (Sodium Chloride) 100 mls @ 100 mls/hr IVPB DAILY [facility] PRN Reason: Protocol Last Admin: 11/15/17 16:09 Dose: 100 mls/hr Levalbuterol HCl (Xopenex) 1.25 mg INH RBID [facility] Last Admin: 11/16/17 07:53 Dose: 1.25 mg Levothyroxine Sodium (Synthroid) 50 mcg PO DAILY@0630 [facility] Last Admin: 11/16/17 06:39 Dose: 50 mcg Lorazepam (Ativan) 1 mg PO DAILY [facility] Last Admin: 11/16/17 08:46 Dose: 1 mg Multivitamins/Minerals (Therapeutic-M Tab) 1 tab PO DAILY [facility] Last Admin: 11/16/17 08:48 Dose: 1 tab Quetiapine Fumarate (Seroquel) 100 mg PO Q12 [facility] Last Admin: 11/16/17 08:48 Dose: 100 mg - Labs Labs: 11/13/17 08:10 11/15/17 09:20
--- NOTE | 2017-11-16 09:41 | CP.PCM.PN ---
Subjective - Date & Time of Evaluation Date of Evaluation: 11/16/17 Time of Evaluation: 07:35 - Subjective Subjective: Pt is seen and examine with Dr. Storm. Pt was sitting on her chair today, she was very nervous about the finding they found on the CT scan. Pt was tearful and in denial about the finding. Could not explain to patient about any procedure at that time. On the pulmonology point of view pt is breathing better, still with SOB, she ate well. She denies having headache, chest pain, abdominal pain, diarrhea, constipation dysuria, or polyuria at the moment. Vital are stable Physical exam: Decrease breath sound on all quadrant Labs WNL except glucose of 178 Objective - Vital Signs/Intake and Output Vital Signs (last 24 hours): Temp Pulse Resp BP Pulse Ox 97.8 F 82 20 134/83 95 11/16/17 08:13 11/16/17 08:13 11/16/17 08:13 11/16/17 08:13 11/16/17 08:13 - Medications Medications: Current Medications Acetylcysteine (Acetylcysteine 20%) 2 ml INH RBID [facility] Last Admin: 11/16/17 07:53 Dose: 2 ml Atorvastatin Calcium (Lipitor) 10 mg PO HS [facility] Last Admin: 11/15/17 21:28 Dose: 10 mg Cholecalciferol (Vitamin D) 1,000 intlu PO DAILY [facility] Last Admin: 11/16/17 08:50 Dose: 1,000 intlu Enalapril Maleate (Vasotec) 5 mg PO DAILY [facility] Last Admin: 11/16/17 08:49 Dose: 5 mg Enoxaparin Sodium (Lovenox) 70 mg SC Q12 [facility] PRN Reason: Protocol Last Admin: 11/16/17 08:47 Dose: 70 mg Famotidine (Pepcid) 20 mg PO BID [facility] Last Admin: 11/16/17 08:48 Dose: 20 mg Gabapentin (Neurontin) 100 mg PO Q8 [facility] Last Admin: 11/16/17 08:47 Dose: 100 mg Ceftriaxone Sodium 1 gm/ (Sodium Chloride) 100 mls @ 100 mls/hr IVPB DAILY [facility] PRN Reason: Protocol Last Admin: 11/15/17 16:09 Dose: 100 mls/hr Levalbuterol HCl (Xopenex) 1.25 mg INH RBID [facility] Last Admin: 11/16/17 07:53 Dose: 1.25 mg Levothyroxine Sodium (Synthroid) 50 mcg PO DAILY@0630 [facility] Last Admin: 11/16/17 06:39 Dose: 50 mcg Lorazepam (Ativan) 1 mg PO DAILY [facility] Last Admin: 11/16/17 08:46 Dose: 1 mg Multivitamins/Minerals (Therapeutic-M Tab) 1 tab PO DAILY [facility] Last Admin: 11/16/17 08:48 Dose: 1 tab Quetiapine Fumarate (Seroquel) 100 mg PO Q12 [facility] Last Admin: 11/16/17 08:48 Dose: 100 mg - Labs Labs: 11/13/17 08:10 11/15/17 09:20 - Constitutional Appears: Well, Non-toxic, No Acute Distress - Head Exam Head Exam: ATRAUMATIC, NORMAL INSPECTION, NORMOCEPHALIC - Eye Exam Eye Exam: EOMI, Normal appearance, PERRL Pupil Exam: NORMAL ACCOMODATION, PERRL - ENT Exam ENT Exam: Mucous Membranes Moist, Normal Exam - Neck Exam Neck Exam: Normal Inspection - Respiratory Exam Respiratory Exam: Decreased Breath Sounds, NORMAL BREATHING PATTERN - Cardiovascular Exam Cardiovascular Exam: REGULAR RHYTHM - GI/Abdominal Exam GI & Abdominal Exam: Soft, Normal Bowel Sounds - Extremities Exam Extremities Exam: Full ROM, Normal Capillary Refill, Normal Inspection - Back Exam Back Exam: NORMAL INSPECTION - Neurological Exam Neurological Exam: Alert, Awake, Oriented x3 - Psychiatric Exam Psychiatric exam: Normal Affect, Normal Mood - Skin Skin Exam: Dry, Intact, Normal Color, Warm Assessment and Plan (1) Pulmonary embolism Assessment & Plan: Pt is a 82 yo f with new finding of PE on ct scan Plan Continue On Levonox Status: Acute (2) Atelectasis Assessment & Plan: Plan no acute pneumonia seen on the study use aerosol therapy with mucolyic agent and cpt Status: Chronic
--- NOTE | 2017-11-16 14:49 | CP.PCM.CON ---
History of Present Illness - History of Present Illness History of Present Illness: Hepatobiliary surgery consult note for Dr. Matt Doe, PGY-2 Pt S & E at bedside 1420 82F w/PMH sig for anx/depression consulted for pancreatic mass as per CT abdomen on 11/11/17. Pt was originally admitted to hospital for SOB, cough, tachypnea, and hypoxemia on ABG. Pt was diagnosed with PE, has a history of PE. Pt reports no abdominal complaints- denies nausea, vomiting, fevers, chills , unexplained weight loss, constipation, diarrhea, changes in urinary habits, chest pain, palpitations, changes in eating habits. Only complaint is Right leg swelling, SOB and anxiety/depression. 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 No ductal dilatation. PMH: anx/dep, HTN, HLD, PE, hypothyroidism PSH: Cholecystectomy All: Levofloxacin SH: Denies ETOH, tobacco or illicit drug use PMD: [place] Review of Systems - Review of Systems All systems: reviewed and no additional remarkable complaints except - Constitutional Constitutional: absent: Chills, Fever, Increased Appetite, Weight Loss - EENT Ears: absent: Dizziness - Cardiovascular Cardiovascular: absent: Chest Pain - Respiratory Respiratory: absent: Cough - Gastrointestinal Gastrointestinal: absent: Abdominal Pain, Change in Bowel Habits, Change in Stool Character, Constipation, Diarrhea, Nausea, Vomiting - Genitourinary Genitourinary: absent: Change in Urinary Stream - Musculoskeletal Musculoskeletal: absent: Neck Pain, Numbness, Tingling - Integumentary Integumentary: absent: Rash - Neurological Neurological: absent: Dizziness - Psychiatric Psychiatric: Anxiety, Depression. absent: Change in Appetite Past Patient History - Infectious Disease Hx of Infectious Diseases: None - Tetanus Immunizations Tetanus Immunization: Unknown - Past Medical History & Family History Past Medical History?: Yes - Past Social History Smoking Status: Never Smoked Chewing Tobacco Use: No Cigar Use: No Alcohol: None Drugs: Denies - CARDIAC Hx Hypertension: Yes - PULMONARY Hx Pulmonary Embolism: Yes (2007) Hx Tuberculosis: No - NEUROLOGICAL Hx Neurological Disorder: No Hx Seizures: No - HEENT Hx HEENT Problems: No - RENAL Hx Chronic Kidney Disease: No - ENDOCRINE/METABOLIC Hx Hypothyroidism: Yes - HEMATOLOGICAL/ONCOLOGICAL Hx Blood Disorders: No Hx Human Immunodeficiency Virus (HIV): No - INTEGUMENTARY Hx Dermatological Problems: No - MUSCULOSKELETAL/RHEUMATOLOGICAL Hx Musculoskeletal Disorders: No Hx Falls: No - GASTROINTESTINAL Hx Constipation: Yes - GENITOURINARY/GYNECOLOGICAL Hx Genitourinary Disorders: No Hx Sexually Transmitted Disorders: No - PSYCHIATRIC Hx Anxiety: Yes Hx Bipolar Disorder: Yes Hx Depression: Yes Hx Substance Use: No - SURGICAL HISTORY Hx Surgeries: Yes Hx Cholecystectomy: Yes - ANESTHESIA Hx Anesthesia: Yes Hx Anesthesia Reactions: No Meds Allergies/Adverse Reactions: Allergies Allergy/AdvReac Type Severity Reaction Status Date / Time levofloxacin [From Levaquin] Allergy RASH Verified 11/10/17 14:00 - Medications Medications: Current Medications Acetylcysteine (Acetylcysteine 20%) 2 ml INH RBID [facility] Last Admin: 11/16/17 07:53 Dose: 2 ml Atorvastatin Calcium (Lipitor) 10 mg PO HS [facility] Last Admin: 11/15/17 21:28 Dose: 10 mg Cholecalciferol (Vitamin D) 1,000 intlu PO DAILY [facility] Last Admin: 11/16/17 08:50 Dose: 1,000 intlu Enalapril Maleate (Vasotec) 5 mg PO DAILY [facility] Last Admin: 11/16/17 08:49 Dose: 5 mg Enoxaparin Sodium (Lovenox) 70 mg SC Q12 [facility] PRN Reason: Protocol Last Admin: 11/16/17 08:47 Dose: 70 mg Famotidine (Pepcid) 20 mg PO BID [facility] Last Admin: 11/16/17 08:48 Dose: 20 mg Gabapentin (Neurontin) 100 mg PO Q8 [facility] Last Admin: 11/16/17 08:47 Dose: 100 mg Ceftriaxone Sodium 1 gm/ (Sodium Chloride) 100 mls @ 100 mls/hr IVPB DAILY [facility] PRN Reason: Protocol Last Admin: 11/16/17 10:48 Dose: 100 mls/hr Levalbuterol HCl (Xopenex) 1.25 mg INH RBID [facility] Last Admin: 11/16/17 07:53 Dose: 1.25 mg Levothyroxine Sodium (Synthroid) 50 mcg PO DAILY@0630 [facility] Last Admin: 11/16/17 06:39 Dose: 50 mcg Lorazepam (Ativan) 1 mg PO DAILY [facility] Last Admin: 11/16/17 08:46 Dose: 1 mg Multivitamins/Minerals (Therapeutic-M Tab) 1 tab PO DAILY [facility] Last Admin: 11/16/17 08:48 Dose: 1 tab Quetiapine Fumarate (Seroquel) 100 mg PO Q12 [facility] Last Admin: 11/16/17 08:48 Dose: 100 mg Physical Exam - Constitutional Appears: Non-toxic, No Acute Distress - Head Exam Head Exam: ATRAUMATIC, NORMAL INSPECTION, NORMOCEPHALIC - Eye Exam Eye Exam: EOMI, Normal appearance - ENT Exam ENT Exam: Mucous Membranes Moist, Normal Exam - Neck Exam Neck exam: Positive for: Full Rom, Normal Inspection - Respiratory Exam Respiratory Exam: NORMAL BREATHING PATTERN - Cardiovascular Exam Cardiovascular Exam: REGULAR RHYTHM, +S1, +S2 - GI/Abdominal Exam GI & Abdominal Exam: Normal Bowel Sounds, Soft. absent: Distended, Firm, Guarding, Hernia, Rebound, Tenderness - Extremities Exam Extremities exam: Positive for: full ROM. Negative for: normal inspection ( Right lower extremity larger vs. left), tenderness - Neurological Exam Neurological exam: Alert, CN II-XII Intact, Oriented x3 - Psychiatric Exam Psychiatric exam: Anxious, Normal Affect Additional comments: Pt very labile at bedside - Skin Skin Exam: Dry, Intact, Normal Color, Warm Results - Vital Signs Recent Vital Signs: Last Vital Signs Temp 97.6 F 11/16/17 12:18 Pulse 93 H 11/16/17 12:18 Resp 18 11/16/17 12:18 BP 129/82 11/16/17 12:18 Pulse Ox 96 11/16/17 12:18 - Labs Result Diagrams: 11/13/17 08:10 11/15/17 09:20 Labs: Laboratory Results - last 24 hr 11/11/17 11/13/17 11/14/17 19:00 16:09 04:20 CA 19-9 Antigen Anti-Cardiolipin IgG Ab <14 Ur Strep pneumoniae Ag Not detected Prothrombin Mut Interp see note Prothrombin Gene Mutate see note Prothromb Gene Review see note 11/15/17 09:20 CA 19-9 Antigen 6.1 Anti-Cardiolipin IgG Ab Ur Strep pneumoniae Ag Prothrombin Mut Interp Prothrombin Gene Mutate Prothromb Gene Review Assessment & Plan - Assessment and Plan (Free Text) Assessment: 82F w/pancreatic head mass on CT Plan: FU CT pancreatic protocol Further recs pending imaging/attending evaluation Will DW attending [place], PGY-2 - Date & Time Date: 11/16/17 Time: 14:49
[2017-11-16] MEDS ORDERED: Sodium Chloride 0.9% 50 ML IV ONE (16:52)
[2017-11-16] MEDS ORDERED: Iodixanol 320 MG/ML 100 ML BOTTLE IV ONE (16:52)
--- NOTE | 2017-11-16 17:37 | CP.PCM.PN ---
Subjective - Date & Time of Evaluation Date of Evaluation: 11/16/17 Time of Evaluation: 17:38 - Subjective Subjective: Patient clinically better for the baseline pathology of PE and pneumonia. The findings in the ctscan were discussed with Dr. Rockwell for possible surgical intervention. The case discussed with hemo, pulmonary and the son patient justice. If she stable and no immediate surgical intervention will transfer to SNF to complete the rx for then primary pathologies and will follow with surgical consult on the pancreatic mass. Objective - Vital Signs/Intake and Output Vital Signs (last 24 hours): Temp Pulse Resp BP Pulse Ox 98 F 86 20 142/73 98 11/16/17 16:24 11/16/17 16:24 11/16/17 16:24 11/16/17 16:24 11/16/17 16:24 - Medications Medications: Current Medications Acetylcysteine (Acetylcysteine 20%) 2 ml INH RBID [facility] Last Admin: 11/16/17 07:53 Dose: 2 ml Atorvastatin Calcium (Lipitor) 10 mg PO HS [facility] Last Admin: 11/15/17 21:28 Dose: 10 mg Cholecalciferol (Vitamin D) 1,000 intlu PO DAILY [facility] Last Admin: 11/16/17 08:50 Dose: 1,000 intlu Enalapril Maleate (Vasotec) 5 mg PO DAILY [facility] Last Admin: 11/16/17 08:49 Dose: 5 mg Enoxaparin Sodium (Lovenox) 70 mg SC Q12 [facility] PRN Reason: Protocol Last Admin: 11/16/17 08:47 Dose: 70 mg Famotidine (Pepcid) 20 mg PO BID [facility] Last Admin: 11/16/17 17:20 Dose: 20 mg Gabapentin (Neurontin) 100 mg PO Q8 [facility] Last Admin: 11/16/17 17:20 Dose: 100 mg Ceftriaxone Sodium 1 gm/ (Sodium Chloride) 100 mls @ 100 mls/hr IVPB DAILY [facility] PRN Reason: Protocol Last Admin: 11/16/17 10:48 Dose: 100 mls/hr Sodium Chloride (Sodium Chloride 0.9%) 1,000 mls @ 100 mls/hr IV .Q10H [facility] Stop: 11/17/17 03:59 Levalbuterol HCl (Xopenex) 1.25 mg INH RBID [facility] Last Admin: 07/12/18 07:53 Dose: 1.25 mg Levothyroxine Sodium (Synthroid) 50 mcg PO DAILY@0630 [facility] Last Admin: 11/16/17 06:39 Dose: 50 mcg Lorazepam (Ativan) 1 mg PO DAILY [facility] Last Admin: 11/16/17 08:46 Dose: 1 mg Multivitamins/Minerals (Therapeutic-M Tab) 1 tab PO DAILY [facility] Last Admin: 11/16/17 08:48 Dose: 1 tab Quetiapine Fumarate (Seroquel) 100 mg PO Q12 [facility] Last Admin: 11/16/17 08:48 Dose: 100 mg - Labs Labs: 11/13/17 08:10 11/15/17 09:20 - Constitutional Appears: Chronically Ill - Head Exam Head Exam: ATRAUMATIC, NORMAL INSPECTION, NORMOCEPHALIC - Eye Exam Eye Exam: Normal appearance - ENT Exam ENT Exam: Mucous Membranes Moist - Neck Exam Neck Exam: Full ROM - Respiratory Exam Respiratory Exam: Decreased Breath Sounds, Clear to Ausculation Bilateral - Cardiovascular Exam Cardiovascular Exam: REGULAR RHYTHM, +S1, +S2 - GI/Abdominal Exam GI & Abdominal Exam: Soft, Normal Bowel Sounds - Extremities Exam Extremities Exam: Full ROM - Neurological Exam Neurological Exam: Alert, Awake, Oriented x3 - Psychiatric Exam Psychiatric exam: Anxious - Skin Skin Exam: Normal Color Assessment and Plan (1) Pneumonia Status: Acute (2) Hypoxemia Status: Acute (3) Anxiety Status: Chronic (4) Anxiety disorder Status: Chronic (5) Bipolar disorder Status: Chronic (6) Depression Status: Chronic (7) HTN (hypertension) Status: Chronic (8) Hypothyroid Status: Chronic (9) Pulmonary embolism Status: Acute (10) Pancreatic mass Status: Acute - Assessment and Plan (Free Text) Plan: As above
[2017-11-16] MEDS ORDERED: Sodium Chloride 0.9% 1,000 ML IV SCH ×2 (18:00→21:19)
[2017-11-16] MEDS ORDERED: Iohexol 240 (50 ml) PO ONE (18:30)
[2017-11-17] MEDS: Levothyroxine 50 MCG TAB PO SCH (06:14)
[2017-11-17] MEDS: Acetylcysteine 20% Inhal Soln (4ml) INH SCH ×2 (07:15→19:26)
[2017-11-17] MEDS: Levalbuterol 1.25 MG/3 ML Inhal Soln UD INH SCH ×2 (07:15→19:27)
[2017-11-17 08:00] VITALS: RESP 20
--- NOTE | 2017-11-17 08:32 | CON ---
DATE: 11/16/2017 REASON FOR CONSULTATION: Pancreatic mass on CT. HISTORY OF PRESENT ILLNESS: This is a very ash, but anxious 82-year-old female with history of shortness of breath pulmonary infiltrate. Essentially, GI was called because the CT abdomen done shows a 2 cm hypervascular pancreatic mass. The patient at this point is anxious and complaining of shortness of breath, but tolerating diet without any real pain, lying in bed comfortably, in no apparent distress. PAST MEDICAL HISTORY: As above. PAST SURGICAL HISTORY: As above. MEDICATIONS: Reviewed. REVIEW OF SYSTEMS: All other systems have been reviewed and negative apart from the HPI. PHYSICAL EXAMINATION: VITAL SIGNS: Here in the hospital are grossly unremarkable. GENERAL: A pleasant elderly appearing female, lying in bed comfortably, and in no apparent distress. HEENT: Head is normocephalic and atraumatic. Eyes: Pupils are equal and reactive to light bilaterally. No conjunctival pallor or icterus. NECK: Supple. Normal range of motion. No lymphadenopathy appreciated. LUNGS: Coarse breath sounds bilaterally. HEART: S1 and S2, regular rate and rhythm. No murmurs appreciated. ABDOMEN: Soft and nontender. Bowel sounds are present. No rebound. No guarding. RECTAL: Deferred. EXTREMITIES: Pulses present bilaterally. SKIN: Warm, dry and intact. NEUROLOGIC: A and O x3. LABORATORY DATA: Labs and radiology have been reviewed. WBC of 9.4, hemoglobin 13.4. D-dimer is 571. LFTs are essentially unremarkable . CAT scan showed 2 cm hypervascular lesion of the pancreatic head. ASSESSMENT AND PLAN: This is a 82-year-old female with incidental pancreatic head mass. From GI standpoint, if the patient is amenable, should have a hepatobiliary surgical evaluation and if deemed resectable, it should be resected. If the patient is nonsurgical candidate and the patient is agreeing to chemotherapy done, needs an biopsy for further workup and management. At this point, it was discussed with the patient. The patient understood everything. This was discussed with primary care team for now, and we will follow the patient . Thank you for the consult. Jose Antonio Cuadra MD/ PhD cc: [facility] # [id number]
[2017-11-17] MEDS ORDERED: Simethicone 80 mg Chewtab PO PRN (09:05)
[2017-11-17 09:19] LABS: CARDIOLIPIN AB (IGA) <11 APL (<=11)
[2017-11-17] MEDS: Enoxaparin 80 mg Syringe SC SCH ×2 (09:29→21:33)
[2017-11-17] MEDS: Multivitamin With Minerals Tab PO SCH (09:31)
[2017-11-17] MEDS: Cholecalciferol 1,000 INTLU TAB PO SCH (09:32)
--- NOTE | 2017-11-17 10:11 | CP.PCM.PN ---
Subjective - Date & Time of Evaluation Date of Evaluation: 11/17/17 Time of Evaluation: 10:09 - Subjective Subjective: no overnight events Objective - Vital Signs/Intake and Output Vital Signs (last 24 hours): Temp Pulse Resp BP Pulse Ox 98.1 F 84 20 136/78 94 L 11/17/17 07:59 11/17/17 07:59 11/17/17 07:59 11/17/17 07:59 11/17/17 07:59 - Medications Medications: Current Medications Acetylcysteine (Acetylcysteine 20%) 2 ml INH RBID [facility] Last Admin: 11/17/17 07:15 Dose: 2 ml Atorvastatin Calcium (Lipitor) 10 mg PO HS [facility] Last Admin: 11/16/17 21:16 Dose: 10 mg Cholecalciferol (Vitamin D) 1,000 intlu PO DAILY [facility] Last Admin: 11/17/17 09:32 Dose: 1,000 intlu Enalapril Maleate (Vasotec) 5 mg PO DAILY [facility] Last Admin: 11/17/17 09:32 Dose: 5 mg Enoxaparin Sodium (Lovenox) 70 mg SC Q12 [facility] PRN Reason: Protocol Last Admin: 11/17/17 09:29 Dose: 70 mg Famotidine (Pepcid) 20 mg PO BID [facility] Last Admin: 11/17/17 09:30 Dose: 20 mg Gabapentin (Neurontin) 100 mg PO Q8 [facility] Last Admin: 11/17/17 09:30 Dose: 100 mg Ceftriaxone Sodium 1 gm/ (Sodium Chloride) 100 mls @ 100 mls/hr IVPB DAILY [facility] PRN Reason: Protocol Last Admin: 11/17/17 09:30 Dose: 100 mls/hr Sodium Chloride (Sodium Chloride 0.9%) 1,000 mls @ 50 mls/hr IV .Q20H [facility] Stop: 11/17/17 17:18 Last Admin: 11/16/17 21:47 Dose: 50 mls/hr Levalbuterol HCl (Xopenex) 1.25 mg INH RBID [facility] Last Admin: 11/17/17 07:15 Dose: 1.25 mg Levothyroxine Sodium (Synthroid) 50 mcg PO DAILY@0630 [facility] Last Admin: 11/17/17 06:14 Dose: 50 mcg Lorazepam (Ativan) 1 mg PO BID [facility] Last Admin: 11/17/17 09:29 Dose: 1 mg Multivitamins/Minerals (Therapeutic-M Tab) 1 tab PO DAILY [facility] Last Admin: 11/17/17 09:31 Dose: 1 tab Quetiapine Fumarate (Seroquel) 100 mg PO Q12 [facility] Last Admin: 11/17/17 09:31 Dose: 100 mg Simethicone (Mylicon Chew Tab) 80 mg PO TID PRN PRN Reason: Flatulence Last Admin: 11/17/17 09:51 Dose: 80 mg - Labs Labs: 11/13/17 08:10 11/15/17 09:20 - Respiratory Exam Respiratory Exam: NORMAL BREATHING PATTERN - Cardiovascular Exam Cardiovascular Exam: REGULAR RHYTHM - GI/Abdominal Exam GI & Abdominal Exam: Soft, Normal Bowel Sounds Assessment and Plan - Assessment and Plan (Free Text) Assessment: 82 yo female with pancreatic mass if surgical candidate can consider Whipple if not and agreeable to chemotherapy, would need EUS + FNA all can be done as outpatient
--- NOTE | 2017-11-17 10:23 | CP.PCM.PN ---
Subjective - Date & Time of Evaluation Date of Evaluation: 11/17/17 Time of Evaluation: 08:00 - Subjective Subjective: Pt is seen and examined with Dr. Storm. Pt is not in acute distress, but anxious about her result. Pt angry due to not receive full information about her diagnosis, and demand explanation. otherwise Pt is stable, her breathing is improving, She does have abdominal pain and she contribute it to the CT scan with contrast. Pt deny having fever, chills, chest pain, diarrhea, constipation or any other symptoms vitals WNL except blood pressure of 162/83s Ct scan with contrast : Hyperenhancing nodule in caudal aspect of the pancreatic head centered medial to the CBD measuring [id number]. parietal encasement of the distal CBD with slight narrowing. 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 There is mild bibasilar fibro-atelectatic change in Left lower lobe Minimal R pleural effusion Objective - Vital Signs/Intake and Output Vital Signs (last 24 hours): Temp Pulse Resp BP Pulse Ox 98.1 F 84 20 136/78 94 L 11/17/17 07:59 11/17/17 07:59 11/17/17 07:59 11/17/17 07:59 11/17/17 07:59 - Medications Medications: Current Medications Acetylcysteine (Acetylcysteine 20%) 2 ml INH RBID [facility] Last Admin: 11/17/17 07:15 Dose: 2 ml Atorvastatin Calcium (Lipitor) 10 mg PO HS [facility] Last Admin: 11/16/17 21:16 Dose: 10 mg Cholecalciferol (Vitamin D) 1,000 intlu PO DAILY [facility] Last Admin: 11/17/17 09:32 Dose: 1,000 intlu Enalapril Maleate (Vasotec) 5 mg PO DAILY [facility] Last Admin: 11/17/17 09:32 Dose: 5 mg Enoxaparin Sodium (Lovenox) 70 mg SC Q12 [facility] PRN Reason: Protocol Last Admin: 11/17/17 09:29 Dose: 70 mg Famotidine (Pepcid) 20 mg PO BID [facility] Last Admin: 11/17/17 09:30 Dose: 20 mg Gabapentin (Neurontin) 100 mg PO Q8 [facility] Last Admin: 11/17/17 09:30 Dose: 100 mg Ceftriaxone Sodium 1 gm/ (Sodium Chloride) 100 mls @ 100 mls/hr IVPB DAILY [facility] PRN Reason: Protocol Last Admin: 11/17/17 09:30 Dose: 100 mls/hr Sodium Chloride (Sodium Chloride 0.9%) 1,000 mls @ 50 mls/hr IV .Q20H [facility] Stop: 11/17/17 17:18 Last Admin: 11/16/17 21:47 Dose: 50 mls/hr Levalbuterol HCl (Xopenex) 1.25 mg INH RBID [facility] Last Admin: 11/17/17 07:15 Dose: 1.25 mg Levothyroxine Sodium (Synthroid) 50 mcg PO DAILY@0630 [facility] Last Admin: 11/17/17 06:14 Dose: 50 mcg Lorazepam (Ativan) 1 mg PO BID [facility] Last Admin: 11/17/17 09:29 Dose: 1 mg Multivitamins/Minerals (Therapeutic-M Tab) 1 tab PO DAILY [facility] Last Admin: 11/17/17 09:31 Dose: 1 tab Quetiapine Fumarate (Seroquel) 100 mg PO Q12 [facility] Last Admin: 11/17/17 09:31 Dose: 100 mg Simethicone (Mylicon Chew Tab) 80 mg PO TID PRN PRN Reason: Flatulence Last Admin: 11/17/17 09:51 Dose: 80 mg - Labs Labs: 11/13/17 08:10 11/15/17 09:20 - Constitutional Appears: Well, Non-toxic, No Acute Distress - Head Exam Head Exam: ATRAUMATIC, NORMAL INSPECTION, NORMOCEPHALIC - Eye Exam Eye Exam: EOMI, Normal appearance Pupil Exam: NORMAL ACCOMODATION, PERRL - ENT Exam ENT Exam: Mucous Membranes Moist, Normal Exam - Respiratory Exam Respiratory Exam: Clear to Ausculation Bilateral, NORMAL BREATHING PATTERN - Cardiovascular Exam Cardiovascular Exam: REGULAR RHYTHM - GI/Abdominal Exam GI & Abdominal Exam: Soft, Normal Bowel Sounds. absent: Tenderness - Extremities Exam Extremities Exam: Full ROM, Normal Inspection - Neurological Exam Neurological Exam: Alert, Awake, Oriented x3 - Psychiatric Exam Psychiatric exam: Anxious - Skin Skin Exam: Dry, Intact, Normal Color, Warm Assessment and Plan (1) Pulmonary embolism Assessment & Plan: Pt is improving, No sign of cyanosis or acute distress Plan Continue Levonox Monitor for any exacerbation Status: Acute (2) Atelectasis Assessment & Plan: Plan no acute pneumonia seen on the study Use aerosoltherapy with mucolytic agent and CPT Status: Chronic
--- NOTE | 2017-11-17 12:02 | CT ---
Date of service: 11/16/2017 PROCEDURE: CT Abdomen with and without intravenous contrast HISTORY: Pancreatic mass, eval proximity to vasculature COMPARISON: Comparison is made to the previous CT of the abdomen and pelvis dated 11/14/2017 TECHNIQUE: Axial images of the abdomen from lung bases to iliac crest with and without intravenous contrast enhancement. Coronal and sagittal reformats generated. Oral contrast also administered. Intravenous contrast Dose: 95 mL Visipaque 320. Radiation dose: Total exam DLP = 1570.16 mGy-cm. This CT exam was performed using one or more of the following dose reduction techniques: Automated exposure control, adjustment of the mA and/or kV according to patient size, and/or use of iterative reconstruction technique. FINDINGS: LOWER THORAX: There is large hiatus hernia again noted associated with gastric mucosal thickening raise the possibility of gastritis. There is a small right pleural effusion and trace left pleural effusion noted. Small opacities are noted at the lung bases likely atelectasis. LIVER: There is arterial enhancing lesion at the peripheral right liver lobe measures 1.5 x 2 centimeter demonstrates rapid washout in the portal phase. The possibility of liver metastasis cannot be totally excluded. Mild heterogeneous enhancement of the liver is noted. GALLBLADDER AND BILE DUCTS: Status post cholecystectomy PANCREAS: Again noted is slightly heterogeneous in enhancing round lesion at the pancreatic head measures 2 centimeter in the transverse diameter. This mass is partially encasing the distal CBD with slight narrowing of the distal portion of the CBD noted. Findings may represent neuro endocrine tumor. The main pancreatic duct is not dilated. No evidence of pancreatitis. SPLEEN: Unremarkable. ADRENALS: Unremarkable. No mass. KIDNEYS AND URETERS: No evidence of hydronephrosis. Bilateral low-attenuation cysts are again noted. VASCULATURE: Unremarkable. No aortic aneurysm. BOWEL: Proximal small bowel mucosal and wall thickening is noted. No evidence of high-grade bowel obstruction. APPENDIX: No evidence of appendicitis. PERITONEUM: Unremarkable. No free fluid. No free air. LYMPH NODES: Unremarkable. No enlarged lymph nodes. BLADDER: Unremarkable. REPRODUCTIVE: Unremarkable. BONES: No acute fracture. OTHER FINDINGS: None. IMPRESSION: 2 centimeter slightly heterogeneous enhancing mass lesion at the pancreatic head centered medial to the CBD and associated with partial encasement and slight narrowing of the distal CBD. 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 Approximately 2 centimeter an arterial enhancing lesion at the peripheral right liver dome may represent metastasis. Large hiatus hernia. Mild diffuse proximal small bowel and stomach wall thickening suggestive of gastroenteritis. Preliminary report was submitted by virtual Radiology.
--- NOTE | 2017-11-17 17:42 | CP.PCM.DIS ---
Provider - Provider Date of Admission: 11/10/17 17:05 Attending physician: Loi Patel MD Time Spent in preparation of Discharge (in minutes): 30 Diagnosis - Discharge Diagnosis (1) Pneumonia Status: Acute (2) Hypoxemia Status: Acute (3) Anxiety Status: Chronic (4) Anxiety disorder Status: Chronic (5) Bipolar disorder Status: Chronic (6) Depression Status: Chronic (7) HTN (hypertension) Status: Chronic (8) Hypothyroid Status: Chronic (9) Pulmonary embolism Status: Acute Priority: High (10) Pancreatic mass Status: Acute Hospital Course - Lab Results Lab Results: Micro Results 11/10/17 04:08 Blood Blood Culture - Final NO GROWTH AFTER 5 DAYS 11/10/17 04:08 Blood Gram Stain - Final TEST NOT PERFORMED 11/10/17 17:10 Blood Blood Culture - Final NO GROWTH AFTER 5 DAYS 11/10/17 17:10 Blood Gram Stain - Final TEST NOT PERFORMED Most Recent Lab Values WBC 9.4 K/uL (4.8-10.8) 11/13/17 08:10 RBC 4.23 Mil/uL (3.80-5.20) 11/13/17 08:10 Hgb 13.4 g/dL (12.0-16.0) 11/13/17 08:10 Hct 38.7 % (34.0-47.0) 11/13/17 08:10 MCV 91.4 fl (81.0-99.0) 11/13/17 08:10 MCH 31.6 pg (27.0-31.0) H 11/13/17 08:10 MCHC 34.6 g/dL (33.0-37.0) 11/13/17 08:10 RDW 14.0 % (11.5-14.5) 11/13/17 08:10 Plt Count 190 K/uL (130-400) 11/13/17 08:10 MPV 8.7 fl (7.2-11.7) 11/13/17 08:10 Neut % (Auto) 50.9 % (50.0-75.0) 11/13/17 08:10 Lymph % (Auto) 39.6 % (20.0-40.0) 11/13/17 08:10 [place] % (Auto) 6.7 % (0.0-10.0) 11/13/17 08:10 Eos % (Auto) 1.7 % (0.0-4.0) 11/13/17 08:10 Baso % (Auto) 1.1 % (0.0-2.0) 11/13/17 08:10 Neut # (Auto) 4.8 K/uL (1.8-7.0) 11/13/17 08:10 Lymph # (Auto) 3.7 K/uL (1.0-4.3) 11/13/17 08:10 [place] # (Auto) 0.6 K/uL (0.0-0.8) 11/13/17 08:10 Eos # (Auto) 0.2 K/uL (0.0-0.7) 11/13/17 08:10 Baso # (Auto) 0.1 K/uL (0.0-0.2) 11/13/17 08:10 D-Dimer, Quantitative 571 ng/mlDDU (0-230) H 11/10/17 20:07 pCO2 42 mm/Hg (35-45) 11/10/17 15:32 pO2 55 mm/Hg (80-100) L 11/10/17 15:32 HCO3 27.7 mmol/L (21-28) 11/10/17 15:32 ABG pH 7.44 (7.35-7.45) 11/10/17 15:32 ABG Total CO2 29.8 mmol/L (22-28) H 11/10/17 15:32 ABG O2 Saturation 94.3 % (95-98) L 11/10/17 15:32 ABG O2 Content 16.9 ML/dL (15-23) 11/10/17 15:32 ABG Base Excess 3.9 mmol/L (-2.0-3.0) H 11/10/17 15:32 ABG Hemoglobin 13.5 g/dL (11.7-17.4) 11/10/17 15:32 ABG Carboxyhemoglobin 2.9 % (0.5-1.5) H 11/10/17 15:32 POC ABG HHb (Measured) 5.4 % (0.0-5.0) H 11/10/17 15:32 ABG Methemoglobin 2.7 % (0.0-3.0) 11/10/17 15:32 ABG O2 Capacity 17.9 mL/dL (16-24) 11/10/17 15:32 Abraham Test Yes 11/10/17 15:32 A-a O2 Difference 42.0 mm/Hg 11/10/17 15:32 Hgb O2 Saturation 89.0 % (95.0-98.0) L 11/10/17 15:32 FiO2 21.0 % 11/10/17 15:32 Sodium 142 mmol/l (132-148) 11/15/17 09:20 Potassium 4.1 MMOL/L (3.6-5.0) 11/15/17 09:20 Chloride 105 mmol/L (98-107) 11/15/17 09:20 Carbon Dioxide 29 mmol/L (22-30) 11/15/17 09:20 Anion Gap 12 (10-20) 11/15/17 09:20 BUN 11 mg/dl (7-17) 11/15/17 09:20 Creatinine 0.7 mg/dl (0.7-1.2) 11/15/17 09:20 Est GFR ( Amer) > 60 11/15/17 09:20 Est GFR (Non-Af Amer) > 60 11/15/17 09:20 Random Glucose 178 mg/dL (65-105) H 11/15/17 09:20 Calcium 8.9 mg/dL (8.4-10.2) 11/15/17 09:20 Total Bilirubin 0.7 mg/dl (0.2-1.3) 11/15/17 09:20 Direct Bilirubin 0.3 mg/ml (0.0-0.4) 11/15/17 09:20 AST 53 U/L (14-36) H D 11/15/17 09:20 ALT 45 U/L (9-52) 11/15/17 09:20 Alkaline Phosphatase 58 U/L (38-126) 11/15/17 09:20 Troponin I < 0.0120 ng/mL (0.00-0.120) 11/11/17 09:33 Total Protein 6.3 G/DL (6.3-8.2) 11/15/17 09:20 Albumin 3.6 g/dL (3.5-5.0) 07/11/18 09:20 Globulin 2.7 gm/dL (2.2-3.9) 11/15/17 09:20 Albumin/Globulin Ratio 1.4 (1.0-2.1) 11/15/17 09:20 CA 19-9 Antigen 5.2 U/mL (0-37) 11/17/17 13:15 TSH 3rd Generation 1.50 mIU/ML (0.46-4.68) 11/10/17 20:07 Urine Color Yellow (YELLOW) 11/11/17 19:00 Urine Clarity Slighty-cloudy (Clear) 11/11/17 19:00 Urine pH 6.0 (5.0-8.0) 11/11/17 19:00 Ur Specific Sunshine 1.024 (1.003-1.030) 11/11/17 19:00 Urine Protein Negative mg/dL (NEGATIVE) 11/11/17 19:00 Urine Glucose (UA) Neg mg/dL (Normal) 11/11/17 19:00 Urine Ketones Negative mg/dL (NEGATIVE) 11/11/17 19:00 Urine Blood Negative (NEGATIVE) 11/11/17 19:00 Urine Nitrate Negative (NEGATIVE) 11/11/17 19:00 Urine Bilirubin Negative (NEGATIVE) 11/11/17 19:00 Urine Urobilinogen 0.2-1.0 mg/dL (0.2-1.0) 11/11/17 19:00 Ur Leukocyte Esterase Neg Adalberto/uL (Negative) 11/11/17 19:00 Urine RBC (Auto) 1 /hpf (0-3) 11/11/17 19:00 Urine Microscopic WBC 4 /hpf (0-5) 11/11/17 19:00 Ur Squamous Epith Cells < 1 /hpf (0-5) 11/11/17 19:00 Amorphous Sediment Rare /ul (<OCC) H 11/11/17 19:00 Anti-Cardiolipin IgG Ab <14 GPL (<=14) 11/14/17 04:20 Anti-Cardiolipin IgA Ab <11 APL (<=11) 11/14/17 04:20 Anti-Cardiolipin IgM Ab <12 MPL (<=12) 11/14/17 04:20 Ur L.pneumophila Ag Negative (NEGATIVE) 11/11/17 19:00 Mycoplasma pneumon IgG <=0.90 (<=0.90) 11/11/17 09:33 Mycoplasma pneumon IgM 117 U/mL (<770) 11/11/17 09:33 Ur Strep pneumoniae Ag Not detected 11/11/17 19:00 MTHFR DNA Mutation Anal see note H 11/13/17 16:09 MTHFR Interpretation see note 11/13/17 16:09 MTHFR Reviewed By see note 11/13/17 16:09 Prothrombin Mut Interp see note 11/13/17 16:09 Prothrombin Gene Mutate see note 11/13/17 16:09 Prothromb Gene Review see note 11/13/17 16:09 - Hospital Course Hospital Course: Patient is a 82 y/o lady presented in ER with new onset of severe SOB, cough with tachypnea and hypoxemia by ABG. A CRX was performed and reveled an pulmonary infiltrate. She has a baseline anxiety disorders, but she presented with severe anxiety and at times with delirium. The D-DIMER were elevated and in consideration of the low O2 saturation a CTscan was ordered to R/O PE.She is less anxious, she was seen by a psychiatry that recommended to increase the benzo to control her anxiety. Still c/o SOB and anxiety. No peripheral DVT. During the hospitalization she c/o same abdominal discomfort. A Ct scan reveled a pancreatic mass. She and the family was informed about the ct scan report. I had several conversation with Alok (son) and with then patient to explain in detals the findings and the plan for further dx and rx. At present she is treated for pneumonia PE and debility. A w/u for meuroendocrine,since is in the differentia dx, was started and discussed with the surgical assistant certified. Patient will complete the rx in a SNF facility. Discharge Exam - Head Exam Head Exam: ATRAUMATIC, NORMAL INSPECTION, NORMOCEPHALIC - Eye Exam Eye Exam: Normal appearance - ENT Exam ENT Exam: Normal Exam - Respiratory Exam Respiratory Exam: Clear to PA & Lateral, NORMAL BREATHING PATTERN - Cardiovascular Exam Cardiovascular Exam: REGULAR RHYTHM, +S1, +S2 - GI/Abdominal Exam GI & Abdominal Exam: Normal Bowel Sounds - Extremities Exam Extremities exam: normal inspection - Neurological Exam Neurological exam: Alert, CN II-XII Intact, Oriented x3, Reflexes Normal - Psychiatric Exam Psychiatric exam: Anxious - Skin Skin Exam: Normal Color Discharge Plan - Follow Up Plan Condition: STABLE Disposition: REHAB FACILITY/REHAB UNIT Instructions: Community-Acquired Pneumonia, Adult (DC) Referrals: Eddie Daniels MD [Staff Provider] - Domenico Storm MD [Staff Provider] - Loi Patel MD [Family Provider] -
[2017-11-17 20:10] VITALS: BP 157/81; PULSE 96; TEMP 97.9; O2SAT 95
--- NOTE | 2017-11-18 04:35 | CON ---
DATE: 11/17/2017 ENDOCRINOLOGY CONSULTATION LOCATION: Room 402. HISTORY OF PRESENT ILLNESS: This is an 82-year-old female who was admitted with sudden onset of shortness of breath and hypoxemia with supervening tachycardia and was evaluated to have to an acute pulmonary embolism and is now receiving anticoagulation therapy and being followed closely by multiple specialists at this time. She is being referred now for endocrine evaluation of the incidental finding of a pancreatic mass and the possibility of a neuroendocrine tumor, is being brought in at this point in time. The patient and the son at the bedside extremely adamant and resisting any further workup and blood testing even radiologic testing for this pancreatic tumor as seen by the CT scan of the abdomen and pelvis. PAST MEDICAL HISTORY: As mentioned above, history of generalized anxiety and depression with underlying schizoaffective disorder; history of hypothyroidism, on thyroxine at 50 mcg once daily as given and taken; history of hypertension and dyslipidemia; history of a previous bout of pulmonary embolism with no evidence of deep vein thrombosis. FAMILY HISTORY: Positive for hypertension and heart disease. SOCIAL HISTORY: The patient has a supportive family and the son is very attentive to her needs. No known substance use. REVIEW OF SYSTEMS: As mentioned above, admits to generalized body weakness with easy fatigability and tiredness and suboptimal energy level. Admits to recent insomnia, anxiety and panic attacks. Also admits to episodic bifrontal headaches with visual blurring as noted. Admits to sudden onset of precordial chest pain with progressive shortness of breath initially on exertion and then at rest. Her oral intake has been variable with nausea and dyspepsia and vague upper abdominal pains with variable oral intake. No recent alterations of bowel or urinary patterns. PHYSICAL EXAMINATION: GENERAL: Average-built female, in no apparent distress. VITAL SIGNS: With a blood pressure of 140/80, pulse of 70 beats per minute and regular, temperature 98, respirations 20. Height is 5 feet 7 inches. Weight is 160 pounds. She is in room 402. HEENT: Head normocephalic. Eyes anicteric with pink conjunctivae. Funduscopy not possible at this time. Ears, nose and throat otherwise normal. NECK: Supple. Thyroid gland is normal in size. No carotid bruits or cervical adenopathy. CARDIOPULMONARY: Some adynamic precordium. S1, S2 are rapid and regular. LUNGS: Show scattered rhonchi. ABDOMEN: Flat, soft with positive bowel sounds. EXTREMITIES: No peripheral edema. Pulses are +2 bilaterally. LABORATORY DATA: Chemistries: BUN is 11, sodium 142, potassium 4.1, chloride 105, CO2 of 29, glucose 170, and creatinine 0.7. Her liver transaminases are normal. TSH is 1.50. 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 ASSESSMENT: This is an 82-year-old female with sudden onset of chest pain and shortness of breath with hypoxemia and tachycardia and evaluated to have bilateral pulmonary embolism, currently on anticoagulation therapy at this time. She also has some incidental finding of a pancreatic mass lesion and the possibility of a neuroendocrine tumor, is being brought at this time, and hormonal workup has been initially undertaken as noted. PLAN OF MANAGEMENT: Concur with the initial comprehensive hormonal profile as ordered by the primary physician, and we will just add a serum C-peptide with a hemoglobin A1c level and serial chemistries to be added otherwise since the comprehensive hormonal profile has already been ordered by , the primary physician, to include a serum insulin level, serum insulin antibodies and chromogranin level as ordered and also serum gastrin level as ordered to exclude any underlying multiple endocrine neoplasia syndrome. We will respect the patient and the son's wishes for to refuse further lab testing and also radiologic testing at this time. The indications and the reasons for obtaining the hormonal profile were discussed with the son and the patient at bedside. We will follow and advise accordingly. Luz Elkins MD
== END 2017-11-17 23:20 | DRG 175 ==
LOC: H.ER 13:56 → H.ERHOLD 17:05 → H.MEDSURG1 18:49 → H.TEL 11-12 12:21
PROVIDERS: ADMIT Internal Medicine; ATTEND Internal Medicine
DX: I26.99 Other pulmonary embolism without acute cor pulmonale (principal); J18.9 Pneumonia, unspecified organism; J98.11 Atelectasis; R09.02 Hypoxemia; K86.89 Other specified diseases of pancreas; F41.1 Generalized anxiety disorder; I10 Essential (primary) hypertension; E03.9 Hypothyroidism, unspecified; F31.9 Bipolar disorder, unspecified; E78.5 Hyperlipidemia, unspecified; E78.00 Pure hypercholesterolemia, unspecified; F60.9 Personality disorder, unspecified; K44.9 Diaphragmatic hernia without obstruction or gangrene; K59.00 Constipation, unspecified; Z86.711 Personal history of pulmonary embolism; Z79.01 Long term (current) use of anticoagulants; Z88.1 Allergy status to other antibiotic agents

== ENCOUNTER 2017-11-17 19:39 | Inpatient (IN) | payer OTHER, MEDICARE ==
[2017-11-17 22:53] VITALS: BMI 25.0
[2017-11-17] MEDS ORDERED: Levalbuterol 1.25 MG/3 ML Inhal Soln UD INH ONE (23:32)
[2017-11-18] MEDS: Levothyroxine 50 MCG TAB PO SCH (06:12)
[2017-11-18 07:14] LABS: MEAN CELL VOLUME 92.4 fl (81.0-99.0); MEAN CORPUSCULAR HEMOGLOBIN 31.1 pg (27.0-31.0); MEAN CORPUSCULAR HGB CONC 33.7 g/dL (33.0-37.0); RBC 3.84 Mil/uL (3.80-5.20); RED CELL DISTRIBUTION WIDTH 13.9 % (11.5-14.5); WHITE BLOOD COUNT 6.9 K/uL (4.8-10.8)
[2017-11-18 07:36] LABS: ALB/GLOB RATIO 1.2 (1.0-2.1); ALBUMIN 3.3 g/dL (3.5-5.0); ALT/SGPT 52 U/L (9-52); AST/SGOT 31 U/L (14-36); BLOOD UREA NITROGEN 15 mg/dl (7-17); CALCIUM 8.9 mg/dL (8.4-10.2); GFR AFRICAN-AMERICAN > 60; GFR NON-AFRICAN AMERICAN > 60
[2017-11-18 07:37] LABS: T4 6.78 ug/dl (5.5-11.0)
--- NOTE | 2017-11-18 07:42 | CP.PCM.HP ---
History of Present Illness - History of Present Illness History of Present Illness: Patient is a 82 y/o lady presented in ER with new onset of severe SOB, cough with tachypnea and hypoxemia by ABG. A CRX was performed and reveled an pulmonary infiltrate. She has a baseline anxiety disorders, but she presented with severe anxiety and at times with delirium. The D-DIMER were elevated and in consideration of the low O2 saturation a CTscan was ordered to R/O PE.She is less anxious, she was seen by a psychiatry that recommended to increase the benzo to control her anxiety. Still c/o SOB and anxiety. No peripheral DVT. During the hospitalization she c/o same abdominal discomfort. A Ct scan reveled a pancreatic mass. She and the family was informed about the ct scan report. I had several conversation with Alok (son) and with then patient to explain in detals the findings and the plan for further dx and rx. At present she is treated for pneumonia PE and debility. A w/u for meuroendocrine,since is in the differentia dx, was started and discussed with the marine engineering consultant. Patient will complete the rx in a SNF. Present on Admission - Present on Admission Any Indicators Present on Admission: No Review of Systems - Constitutional Constitutional: As Per HPI - EENT Eyes: As Per HPI - Cardiovascular Cardiovascular: As Per HPI - Respiratory Respiratory: As Per HPI - Gastrointestinal Gastrointestinal: As Per HPI - Musculoskeletal Musculoskeletal: As Per HPI - Integumentary Integumentary: As Per HPI - Neurological Neurological: As Per HPI Past Patient History - Infectious Disease Hx of Infectious Diseases: None - Tetanus Immunizations Tetanus Immunization: Unknown - Past Medical History & Family History Past Medical History?: Yes - Past Social History Smoking Status: Never Smoked - CARDIAC Hx Hypertension: Yes - PULMONARY Hx Pulmonary Embolism: Yes (2007) Hx Tuberculosis: No - NEUROLOGICAL Hx Neurological Disorder: No Hx Seizures: No - HEENT Hx HEENT Problems: No - RENAL Hx Chronic Kidney Disease: No - ENDOCRINE/METABOLIC Hx Hypothyroidism: Yes - HEMATOLOGICAL/ONCOLOGICAL Hx Blood Disorders: No Hx Human Immunodeficiency Virus (HIV): No - INTEGUMENTARY Hx Dermatological Problems: No - MUSCULOSKELETAL/RHEUMATOLOGICAL Hx Musculoskeletal Disorders: No Hx Falls: No - GASTROINTESTINAL Hx Constipation: Yes - GENITOURINARY/GYNECOLOGICAL Hx Genitourinary Disorders: No Hx Sexually Transmitted Disorders: No - PSYCHIATRIC Hx Anxiety: Yes Hx Bipolar Disorder: Yes Hx Depression: Yes Hx Substance Use: No - SURGICAL HISTORY Hx Surgeries: Yes Hx Cholecystectomy: Yes - ANESTHESIA Hx Anesthesia: Yes Hx Anesthesia Reactions: No Hx Malignant Hyperthermia: No Has any member of the family had a problem w/ anesthesia?: No Meds Allergies/Adverse Reactions: Allergies Allergy/AdvReac Type Severity Reaction Status Date / Time levofloxacin [From Levaquin] Allergy RASH Verified 11/10/17 14:00 Physical Exam - Constitutional Appears: Chronically Ill - Head Exam Head Exam: ATRAUMATIC, NORMAL INSPECTION, NORMOCEPHALIC - Eye Exam Eye Exam: Normal appearance - ENT Exam ENT Exam: Mucous Membranes Moist - Respiratory Exam Respiratory Exam: Decreased Breath Sounds - Cardiovascular Exam Cardiovascular Exam: REGULAR RHYTHM, +S1, +S2 - GI/Abdominal Exam GI & Abdominal Exam: Normal Bowel Sounds - Extremities Exam Extremities exam: Positive for: normal inspection - Neurological Exam Neurological exam: Alert, CN II-XII Intact, Oriented x3 - Psychiatric Exam Psychiatric exam: Agitated - Skin Skin Exam: Normal Color Results - Labs Result Diagrams: 11/18/17 05:30 11/18/17 05:30 Labs: Laboratory Results - last 24 hr 11/18/17 11/18/17 05:30 05:30 WBC 6.9 RBC 3.84 Hgb 12.0 Hct 35.5 MCV 92.4 MCH 31.1 H MCHC 33.7 RDW 13.9 Plt Count 195 Sodium 140 Potassium 4.0 Chloride 105 Carbon Dioxide 27 Anion Gap 12 BUN 15 Creatinine 0.8 Est GFR ( Amer) > 60 Est GFR (Non-Af Amer) > 60 Random Glucose 98 Calcium 8.9 Total Bilirubin 0.4 AST 31 ALT 52 Alkaline Phosphatase 51 Total Protein 6.0 L Albumin 3.3 L Globulin 2.7 Albumin/Globulin Ratio 1.2 Thyroxine (T4) 6.78 Assessment & Plan (1) Pancreatic mass Status: Acute (2) Pneumonia Status: Acute (3) Pulmonary embolism Status: Acute Priority: High (4) Anxiety Status: Chronic (5) Hypothyroid Status: Chronic (6) Debility Status: Acute - Assessment and Plan (Free Text) Plan: As per orders
[2017-11-18 07:50] LABS: T3 0.696 nmol/L (1.49-2.60)
[2017-11-18] MEDS ORDERED: Patient's Own Med (Multivitamin/Iron/Folic Acid [Centrum Complete Multivit Tab] 1 TAB) PO SCH (09:00)
[2017-11-18] MEDS: Cholecalciferol 1,000 INTLU TAB PO SCH (09:31)
[2017-11-18] MEDS: Multivitamin With Minerals Tab PO SCH (09:31)
[2017-11-18] MEDS: Enoxaparin 80 mg Syringe SC SCH ×2 (10:10→21:10)
[2017-11-18] MEDS: Acetylcysteine 20% Inhal Soln (4ml) INH SCH ×2 (11:39→19:45)
[2017-11-18] MEDS: Albuterol-Ipratrop 3 mg / 0.5 (3 ml) UD INH PRN (11:39)
[2017-11-18 13:06] LABS: FOLATE > 20.0 ng/mL
--- NOTE | 2017-11-18 15:27 | PN ---
DATE: 11/18/2017 ENDO FOLLOWUP NOTE LOCATION: In room 707, CCU. SUBJECTIVE: This is an 82-year-old female with recent admission for acute pulmonary embolism and has since then improved clinically and hemodynamically as noted thereof and currently on subcutaneous anticoagulation with Lovenox therapy as given. She is also being followed closely for metabolic management of hypothyroidism and she remains clinically and biochemically euthyroid at this time. Moreover, she also had an incidental finding of a pancreatic mass lesion in the head of the pancreas and is currently undergoing comprehensive hormonal workup at this time. LABORATORY DATA: Her latest chemistry showed a BUN of 15, sodium 140, potassium 4, chloride 105, CO2 of 27, glucose 98, and creatinine 0.8. Her total T4 is 6.78 with a TSH of 2.93 and a total T3 of 0.69. ASSESSMENT: This is an 82-year-old female who remains clinically euthyroid and biochemically also is euthyroid with a superimposed acute sick euthyroid syndrome. Moreover, she has an incidental finding of a pancreatic mass lesion and is currently undergoing workup for a possible neuroendocrine gastrointestinal tumor as noted. PLAN OF MANAGEMENT: Concur with the present comprehensive hormonal testing to determine whether we are dealing with a functioning versus a nonfunctioning neuroendocrine tumor at this time. The serum insulin, serum C-peptide, and serum insulin antibodies with a Chromogranin level have all been sent out, although the patient insisted that she will refuse further blood testing as noted. We will continue the levothyroxine given as 50 mcg once daily as ordered. We will obtain serial chemistries and supplement accordingly as needed. We will follow. Luz Elkins MD
[2017-11-19] MEDS: Levothyroxine 50 MCG TAB PO SCH (06:39)
[2017-11-19] MEDS: Albuterol-Ipratrop 3 mg / 0.5 (3 ml) UD INH PRN ×3 (07:10→19:03)
[2017-11-19] MEDS: Acetylcysteine 20% Inhal Soln (4ml) INH SCH ×2 (07:10→19:03)
[2017-11-19] MEDS: Enoxaparin 80 mg Syringe SC SCH ×2 (08:20→21:44)
[2017-11-19] MEDS: Multivitamin With Minerals Tab PO SCH (08:22)
[2017-11-19] MEDS: Cholecalciferol 1,000 INTLU TAB PO SCH (08:22)
--- NOTE | 2017-11-19 13:55 | PN ---
DATE: 11/19/2017 ENDO FOLLOWUP NOTE LOCATION: In room 707, CCU. SUBJECTIVE: This is an 82-year-old female with acute pulmonary embolism currently on subcutaneous anticoagulation therapy and is now being followed closely for metabolic management. She also has known history of hypothyroidism and remains clinically and biochemically euthyroid at this time. Her latest chemistry showed a BUN of 15, sodium 140, potassium 4, chloride 105, CO2 of 27, glucose 98, and creatinine 0.8. Her latest thyroid study showed T4 of 6.78 with a TSH of 2.93 and a total T3 of 0.696. CAT scan of abdomen shows a 2 x 2 cm hypervascular pancreatic mass lesion in the head of the pancreas as noted. ASSESSMENT: This is an 82-year-old female with known history of hypothyroidism most likely related to underlying autoimmune thyroiditis and currently remains clinically and biochemically euthyroid as noted thereof. She also has superimposed acute sick euthyroid syndrome, which should improve accordingly after her clinical status improves. She also has hypervascular pancreatic mass lesion as noted from the CAT scan of the abdomen and is currently undergoing GI workup for a possible neuroendocrine GI tumor. PLAN OF MANAGEMENT: We will continue her levothyroxine given as 50 mcg once daily in the morning as ordered and we will titrate incrementally as indicated to optimize metabolic control. We will obtain serial chemistries and supplement accordingly as needed. We will also obtain serial thyroid studies and adjust the dose regimen accordingly. We also sent out a comprehensive hormonal profile to confirm and/or indicate the presence of any underlying neuroendocrine GI tumor. We will obtain serial chemistries and supplement accordingly as needed. We will follow. Luz Elkins MD
[2017-11-20] MEDS: Levothyroxine 50 MCG TAB PO SCH (06:06)
[2017-11-20] MEDS: Albuterol-Ipratrop 3 mg / 0.5 (3 ml) UD INH PRN ×2 (07:16→19:18)
[2017-11-20] MEDS: Acetylcysteine 20% Inhal Soln (4ml) INH SCH ×2 (07:16→19:18)
[2017-11-20] MEDS: Enoxaparin 80 mg Syringe SC SCH ×2 (08:01→21:09)
[2017-11-20] MEDS: Multivitamin With Minerals Tab PO SCH (08:04)
--- NOTE | 2017-11-20 10:48 | CP.PCM.CON ---
History of Present Illness - History of Present Illness History of Present Illness: This 82-year-old female was initially seen on the acute medical floor where she was admitted because of shortness of breath with the finding of acute pulmonary emboli, subsegmental, bilaterally. Venous duplex scanning of the lower extremities did not reveal any deep vein thrombosis. An echocardiogram was performed which did not show any signs of RV strain. She was placed on antibiotics because of an area of atelectasis and possible pneumonitis appears to be the result of compression secondary to a very large hiatal hernia. She was anticoagulated and ultimately did well enough to where she was discharged from acute medicine to subacute rehabilitation. A coincidental finding during workup showed a hypervascular density at the head of the pancreas which is currently eating worked up. She did have a past medical history of pulmonary embolism in 2007 as well. She has had a complaint of dyspnea for many years in part thought to be secondary to her depression and anxiety. Past Patient History - Infectious Disease Hx of Infectious Diseases: None - Tetanus Immunizations Tetanus Immunization: Unknown - Past Medical History & Family History Past Medical History?: Yes - Past Social History Smoking Status: Never Smoked Chewing Tobacco Use: No Cigar Use: No Alcohol: None Drugs: Denies - CARDIAC Hx Hypertension: Yes - PULMONARY Hx Pulmonary Embolism: Yes (2007) Hx Tuberculosis: No - NEUROLOGICAL Hx Neurological Disorder: No Hx Seizures: No - HEENT Hx HEENT Problems: No - RENAL Hx Chronic Kidney Disease: No - ENDOCRINE/METABOLIC Hx Hypothyroidism: Yes - HEMATOLOGICAL/ONCOLOGICAL Hx Blood Disorders: No Hx Human Immunodeficiency Virus (HIV): No - INTEGUMENTARY Hx Dermatological Problems: No - MUSCULOSKELETAL/RHEUMATOLOGICAL Hx Musculoskeletal Disorders: No Hx Falls: No - GASTROINTESTINAL Hx Constipation: Yes - GENITOURINARY/GYNECOLOGICAL Hx Genitourinary Disorders: No Hx Sexually Transmitted Disorders: No - PSYCHIATRIC Hx Anxiety: Yes Hx Bipolar Disorder: Yes Hx Depression: Yes Hx Substance Use: No - SURGICAL HISTORY Hx Cholecystectomy: Yes - ANESTHESIA Hx Anesthesia: Yes Hx Anesthesia Reactions: No Hx Malignant Hyperthermia: No Has any member of the family had a problem w/ anesthesia?: No Meds Allergies/Adverse Reactions: Allergies Allergy/AdvReac Type Severity Reaction Status Date / Time levofloxacin [From Levaquin] Allergy RASH Verified 11/10/17 14:00 - Medications Medications: Current Medications Acetylcysteine (Acetylcysteine 20%) 2 ml INH RBID [facility] Last Admin: 11/20/17 07:16 Dose: 2 ml Albuterol/Ipratropium (Duoneb 3 Mg/0.5 Mg (3 Ml) Ud) 3 ml INH RQ6 PRN PRN Reason: Shortness of Breath Last Admin: 11/20/17 07:16 Dose: 3 ml Atorvastatin Calcium (Lipitor) 10 mg PO HS [facility] Last Admin: 11/19/17 21:44 Dose: 10 mg Cholecalciferol (Vitamin D) 1,000 intlu PO DAILY [facility] Last Admin: 11/19/17 08:22 Dose: 1,000 intlu Enalapril Maleate (Vasotec) 5 mg PO DAILY [facility] Last Admin: 11/20/17 08:04 Dose: 5 mg Enoxaparin Sodium (Lovenox) 70 mg SC Q12 [facility] PRN Reason: Protocol Last Admin: 11/20/17 08:01 Dose: 70 mg Famotidine (Pepcid) 20 mg PO BID [facility] Last Admin: 11/20/17 08:04 Dose: 20 mg Gabapentin (Neurontin) 100 mg PO Q8 [facility] Last Admin: 11/20/17 08:02 Dose: 100 mg Ceftriaxone Sodium 1 gm/ (Sodium Chloride) 100 mls @ 100 mls/hr IVPB DAILY@ 1700 [facility] PRN Reason: Protocol Last Admin: 11/19/17 16:23 Dose: 100 mls/hr Levothyroxine Sodium (Synthroid) 50 mcg PO DAILY@0630 [facility] Last Admin: 11/20/17 06:06 Dose: 50 mcg Lorazepam (Ativan) 1 mg PO BID [facility] Last Admin: 11/20/17 08:01 Dose: 1 mg Multivitamins/Minerals (Therapeutic-M Tab) 1 tab PO DAILY [facility] Last Admin: 11/20/17 08:04 Dose: 1 tab Quetiapine Fumarate (Seroquel) 100 mg PO Q12 [facility] Last Admin: 11/20/17 08:03 Dose: 100 mg Simethicone (Mylicon Chew Tab) 80 mg PO TID PRN PRN Reason: Flatulence Physical Exam - Additional Findings Additional findings: Well developed, well nourished, anxious female. Complains of shortness of breath on and off for many years. Neck is supple and trachea midline, No visible JVD. No carotid bruit. No palpable lymphadenopathy. Right calf is slightly more enlarged than the left. No cyanosis. No calf tenderness. Trace non-pitting edema of ankles. Pharynx is pink and moist w/o exudate. No dullness on chest percussion, equal expansion, assymetric thorax. Breath sounds are present equally in both lungs. Occasional rhonchi in lower lobes. No audible wheezing or bronchial breath sounds. Heart sounds are well heard, rhythm is regular w/o murmur heard. Abdomen is soft and non-tender. Results - Vital Signs Recent Vital Signs: Last Vital Signs Temp 97.5 F L 11/20/17 08:05 Pulse 82 11/20/17 08:05 Resp 18 11/20/17 08:05 BP 149/80 11/20/17 08:05 Pulse Ox 97 11/20/17 08:05 - Labs Result Diagrams: 11/18/17 05:30 11/18/17 05:30 Labs: Laboratory Results - last 24 hr 11/18/17 05:30 Hemoglobin A1c 5.6 Assessment & Plan (1) Pancreatic mass Status: Acute Priority: High (2) Pulmonary embolism Status: Acute Priority: High - Assessment and Plan (Free Text) Plan: Continue present anticoagulation as workup for pancreatic mass progresses. Clinically stable from a respiratory standpoint. - Date & Time Date: 11/20/17 Time: 10:47
--- NOTE | 2017-11-20 12:13 | CP.PCM.PN ---
Subjective - Date & Time of Evaluation Date of Evaluation: 11/20/17 Time of Evaluation: 12:14 - Subjective Subjective: No new changes, patient looks comfortable. Continue present rx. Condition discussed with the patient son. Objective - Vital Signs/Intake and Output Vital Signs (last 24 hours): Temp Pulse Resp BP Pulse Ox 97.5 F L 82 18 149/80 97 11/20/17 08:05 11/20/17 08:05 11/20/17 08:05 11/20/17 08:05 11/20/17 08:05 - Medications Medications: Current Medications Acetylcysteine (Acetylcysteine 20%) 2 ml INH RBID [facility] Last Admin: 11/20/17 07:16 Dose: 2 ml Albuterol/Ipratropium (Duoneb 3 Mg/0.5 Mg (3 Ml) Ud) 3 ml INH RQ6 PRN PRN Reason: Shortness of Breath Last Admin: 11/20/17 07:16 Dose: 3 ml Atorvastatin Calcium (Lipitor) 10 mg PO HS [facility] Last Admin: 11/19/17 21:44 Dose: 10 mg Cholecalciferol (Vitamin D) 1,000 intlu PO DAILY [facility] Last Admin: 11/19/17 08:22 Dose: 1,000 intlu Enalapril Maleate (Vasotec) 5 mg PO DAILY [facility] Last Admin: 11/20/17 08:04 Dose: 5 mg Enoxaparin Sodium (Lovenox) 70 mg SC Q12 [facility] PRN Reason: Protocol Last Admin: 11/20/17 08:01 Dose: 70 mg Famotidine (Pepcid) 20 mg PO BID [facility] Last Admin: 11/20/17 08:04 Dose: 20 mg Gabapentin (Neurontin) 100 mg PO Q8 [facility] Last Admin: 11/20/17 08:02 Dose: 100 mg Ceftriaxone Sodium 1 gm/ (Sodium Chloride) 100 mls @ 100 mls/hr IVPB DAILY@ 1700 [facility] PRN Reason: Protocol Last Admin: 11/19/17 16:23 Dose: 100 mls/hr Levothyroxine Sodium (Synthroid) 50 mcg PO DAILY@0630 [facility] Last Admin: 11/20/17 06:06 Dose: 50 mcg Lorazepam (Ativan) 1 mg PO BID [facility] Last Admin: 11/20/17 08:01 Dose: 1 mg Multivitamins/Minerals (Therapeutic-M Tab) 1 tab PO DAILY [facility] Last Admin: 11/20/17 08:04 Dose: 1 tab Quetiapine Fumarate (Seroquel) 100 mg PO Q12 [facility] Last Admin: 11/20/17 08:03 Dose: 100 mg Simethicone (Mylicon Chew Tab) 80 mg PO TID PRN PRN Reason: Flatulence - Labs Labs: 11/18/17 05:30 11/18/17 05:30 - Constitutional Appears: Chronically Ill - Head Exam Head Exam: ATRAUMATIC, NORMAL INSPECTION, NORMOCEPHALIC - Eye Exam Eye Exam: Normal appearance - ENT Exam ENT Exam: Mucous Membranes Moist - Neck Exam Neck Exam: Full ROM - Respiratory Exam Respiratory Exam: Clear to Ausculation Bilateral - Cardiovascular Exam Cardiovascular Exam: REGULAR RHYTHM, +S1, +S2 - GI/Abdominal Exam GI & Abdominal Exam: Normal Bowel Sounds - Extremities Exam Extremities Exam: Normal Inspection - Neurological Exam Neurological Exam: Alert, Awake, Normal Gait, Oriented x3 - Psychiatric Exam Psychiatric exam: Anxious - Skin Skin Exam: Normal Color Assessment and Plan (1) Pancreatic mass Status: Acute (2) Pneumonia Status: Acute (3) Pulmonary embolism Status: Acute (4) Anxiety Status: Chronic (5) Hypothyroid Status: Chronic (6) Debility Status: Acute - Assessment and Plan (Free Text) Plan: Continue present rx, f/u with surgical consult.
[2017-11-20] MEDS: Cholecalciferol 1,000 INTLU TAB PO SCH (16:09)
--- NOTE | 2017-11-20 19:48 | PN ---
DATE: 11/20/2017 ENDO FOLLOWUP NOTE SUBJECTIVE: This is an 82-year-old female admitted with acute pulmonary embolism and currently on subcutaneous Lovenox injection for anticoagulation and is also being followed closely for metabolic management. She remains clinically and biochemically euthyroid at this time. LABORATORY DATA: Her latest thyroid study showed a T4 of 6.78 with a TSH of 2.9 and a total T3 of 0.69. Her chemistry showed a BUN of 15, sodium 140, potassium 4, chloride 105, CO2 of 27, glucose 98, and creatinine 0.8. Her hemoglobin A1c is 5.6%. 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 ASSESSMENT: This is an 82-year-old female with known history of hypothyroidism, most likely related to underlying autoimmune thyroiditis and is currently biochemically and clinically euthyroid on the low-dose levothyroxine replacement therapy as given with superimposed acute sick euthyroid syndrome as noted. 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 PLAN OF MANAGEMENT: We will be very careful and prudent in more definitive management at this time, pending the availability of the comprehensive hormonal profile as ordered. She apparently is undergoing surgical evaluation at this time, but the Whipple's procedures are very expensive. GI surgical resection against the patient's advanced age and underlying coagulopathy as noted. We will obtain serial chemistries and supplement accordingly as needed. We are still awaiting the reports of the comprehensive hormonal profile which will confirm and/or indicate the presence of underlying neuroendocrine autoimmunity. We will follow. Luz Elkins MD
[2017-11-21] MEDS: Levothyroxine 50 MCG TAB PO SCH (05:56)
[2017-11-21] MEDS: Albuterol-Ipratrop 3 mg / 0.5 (3 ml) UD INH PRN ×2 (07:32→19:35)
[2017-11-21] MEDS: Acetylcysteine 20% Inhal Soln (4ml) INH SCH ×2 (07:32→19:35)
[2017-11-21] MEDS: Enoxaparin 80 mg Syringe SC SCH ×2 (08:06→21:27)
[2017-11-21] MEDS: Simethicone 80 mg Chewtab PO PRN (08:07)
[2017-11-21] MEDS: Multivitamin With Minerals Tab PO SCH (08:08)
[2017-11-21] MEDS: Cholecalciferol 1,000 INTLU TAB PO SCH (08:08)
--- NOTE | 2017-11-21 12:50 | CP.PCM.PN ---
Subjective - Date & Time of Evaluation Date of Evaluation: 11/21/17 Time of Evaluation: 12:46 - Subjective Subjective: Pt is doing much better, she seemed less anxious and was cooperating with the physical therapy.She was being seen by the GI surgeon She will need a EUS prior to surgery. She will e seen by a GI in [place]. . Objective - Vital Signs/Intake and Output Vital Signs (last 24 hours): Temp Pulse Resp BP Pulse Ox 98.4 F 85 20 142/86 94 L 11/21/17 08:10 11/21/17 08:10 11/21/17 08:10 11/21/17 08:10 11/21/17 08:10 - Medications Medications: Current Medications Acetylcysteine (Acetylcysteine 20%) 2 ml INH RBID [facility] Last Admin: 11/21/17 07:32 Dose: 2 ml Albuterol/Ipratropium (Duoneb 3 Mg/0.5 Mg (3 Ml) Ud) 3 ml INH RQ6 PRN PRN Reason: Shortness of Breath Last Admin: 11/21/17 07:32 Dose: 3 ml Atorvastatin Calcium (Lipitor) 10 mg PO HS [facility] Last Admin: 11/20/17 21:09 Dose: 10 mg Cholecalciferol (Vitamin D) 1,000 intlu PO DAILY [facility] Last Admin: 11/21/17 08:08 Dose: 1,000 intlu Enalapril Maleate (Vasotec) 5 mg PO DAILY [facility] Last Admin: 11/21/17 08:08 Dose: 5 mg Enoxaparin Sodium (Lovenox) 70 mg SC Q12 [facility] PRN Reason: Protocol Famotidine (Pepcid) 20 mg PO BID [facility] Last Admin: 11/21/17 08:07 Dose: 20 mg Gabapentin (Neurontin) 100 mg PO Q8 [facility] Last Admin: 11/21/17 08:07 Dose: 100 mg Ceftriaxone Sodium 1 gm/ (Sodium Chloride) 100 mls @ 100 mls/hr IVPB DAILY@ 1700 [facility] PRN Reason: Protocol Last Admin: 11/20/17 16:28 Dose: 100 mls/hr Levothyroxine Sodium (Synthroid) 50 mcg PO DAILY@0630 [facility] Last Admin: 11/21/17 05:56 Dose: 50 mcg Lorazepam (Ativan) 1 mg PO BID [facility] Last Admin: 11/21/17 08:05 Dose: 1 mg Multivitamins/Minerals (Therapeutic-M Tab) 1 tab PO DAILY [facility] Last Admin: 11/21/17 08:08 Dose: 1 tab Quetiapine Fumarate (Seroquel) 100 mg PO Q12 [facility] Last Admin: 11/21/17 08:07 Dose: 100 mg Simethicone (Mylicon Chew Tab) 80 mg PO TID PRN PRN Reason: Flatulence Last Admin: 11/21/17 08:07 Dose: 80 mg - Labs Labs: 11/18/17 05:30 11/18/17 05:30
--- NOTE | 2017-11-21 13:58 | CP.PCM.PN ---
Subjective - Date & Time of Evaluation Date of Evaluation: 11/21/17 Time of Evaluation: 13:59 - Subjective Subjective: Patient comfortable, not in distress. At times still anxious but better on the benzo. The case was discussed with surgery. The plan is to have a f/u for IUS bx and eventually surgery if patient agree. At present on Lovenox will switch to an oral anticoagulant meds. Will follow repeated cxr and labs. Objective - Vital Signs/Intake and Output Vital Signs (last 24 hours): Temp Pulse Resp BP Pulse Ox 98.4 F 85 20 142/86 94 L 11/21/17 08:10 11/21/17 08:10 11/21/17 08:10 11/21/17 08:10 11/21/17 08:10 - Medications Medications: Current Medications Acetylcysteine (Acetylcysteine 20%) 2 ml INH RBID [facility] B[facility]S AT [facility] Last Admin: 11/21/17 07:32 Dose: 2 ml Albuterol/Ipratropium (Duoneb 3 Mg/0.5 Mg (3 Ml) Ud) 3 ml INH RQ6 PRN PRN Reason: Shortness of Breath Last Admin: 11/21/17 07:32 Dose: 3 ml Atorvastatin Calcium (Lipitor) 10 mg PO HS [facility] Last Admin: 11/20/17 21:09 Dose: 10 mg Cholecalciferol (Vitamin D) 1,000 intlu PO DAILY [facility] Last Admin: 11/21/17 08:08 Dose: 1,000 intlu Enalapril Maleate (Vasotec) 5 mg PO DAILY [facility] Last Admin: 11/21/17 08:08 Dose: 5 mg Enoxaparin Sodium (Lovenox) 70 mg SC Q12 [facility] PRN Reason: Protocol Famotidine (Pepcid) 20 mg PO BID [facility] Last Admin: 11/21/17 08:07 Dose: 20 mg Gabapentin (Neurontin) 100 mg PO Q8 [facility] Last Admin: 11/21/17 08:07 Dose: 100 mg Ceftriaxone Sodium 1 gm/ (Sodium Chloride) 100 mls @ 100 mls/hr IVPB DAILY@ 1700 [facility] PRN Reason: Protocol Last Admin: 11/20/17 16:28 Dose: 100 mls/hr Levothyroxine Sodium (Synthroid) 50 mcg PO DAILY@0630 [facility] Last Admin: 11/21/17 05:56 Dose: 50 mcg Lorazepam (Ativan) 1 mg PO BID [facility] Last Admin: 11/21/17 08:05 Dose: 1 mg Multivitamins/Minerals (Therapeutic-M Tab) 1 tab PO DAILY [facility] Last Admin: 11/21/17 08:08 Dose: 1 tab Quetiapine Fumarate (Seroquel) 100 mg PO Q12 [facility] Last Admin: 11/21/17 08:07 Dose: 100 mg Simethicone (Mylicon Chew Tab) 80 mg PO TID PRN PRN Reason: Flatulence Last Admin: 11/21/17 08:07 Dose: 80 mg - Labs Labs: 11/18/17 05:30 11/18/17 05:30 - Constitutional Appears: Chronically Ill - Head Exam Head Exam: ATRAUMATIC, NORMAL INSPECTION, NORMOCEPHALIC - Eye Exam Eye Exam: Normal appearance - ENT Exam ENT Exam: Mucous Membranes Moist - Neck Exam Neck Exam: Full ROM - Respiratory Exam Respiratory Exam: Clear to Ausculation Bilateral - Cardiovascular Exam Cardiovascular Exam: REGULAR RHYTHM, +S1, +S2 - GI/Abdominal Exam GI & Abdominal Exam: Soft, Normal Bowel Sounds - Extremities Exam Extremities Exam: Full ROM - Neurological Exam Neurological Exam: Alert, Awake, CN II-XII Intact, Oriented x3 - Psychiatric Exam Psychiatric exam: Anxious - Skin Skin Exam: Normal Color Assessment and Plan (1) Pancreatic mass Status: Acute (2) Pneumonia Status: Acute (3) Pulmonary embolism Status: Acute (4) Anxiety Status: Chronic (5) Hypothyroid Status: Chronic (6) Debility Status: Acute - Assessment and Plan (Free Text) Plan: As above.
--- NOTE | 2017-11-21 15:52 | RAD ---
Date of service: 11/21/2017 HISTORY: F/U pneumonia COMPARISON: 11/10/2017 TECHNIQUE: Chest PA and lateral FINDINGS: LUNGS: No active pulmonary disease. PLEURA: Blunting of both costophrenic angles indicating possible small bilateral pleural effusion. No pneumothorax. CARDIOVASCULAR: Cardiomegaly. Large hiatal hernia with multiple air-fluid levels. OSSEOUS STRUCTURES: No significant abnormalities. VISUALIZED UPPER ABDOMEN: Normal. OTHER FINDINGS: None. IMPRESSION: No infiltrate. Large hiatal hernia with multiple air-fluid levels. Possible small bilateral pleural effusion. Please note that the small pleural effusions represent interval change compared to the prior examination of 11/10/2017.
--- NOTE | 2017-11-21 19:26 | PN ---
DATE: 11/21/2017 ENDO FOLLOWUP NOTE LOCATION: In room 707. SUBJECTIVE: This is an 82-year-old female with known history of hypothyroidism, has improved clinically and biochemically. Currently on levothyroxine replacement therapy as given. She also has a hypervascular 2 x 2 cm pancreatic mass lesion undergoing comprehensive hormonal workup as noted thereof. LABORATORY DATA: Her chemistry showed a BUN of 15, sodium 140, potassium 4.2, chloride 105, CO2 of 27, glucose 98, and creatinine 0.8. Her thyroid study showed a T4 of 6.78 with a TSH of 2.93. ASSESSMENT: So at this time we will continue the present medical management and continue the levothyroxine given as 50 mcg once daily in the morning as ordered. We will also obtain serial thyroid studies and titrate her dose regimen accordingly. We are awaiting the reports of the comprehensive hormonal profile sent out to reference lab, which will confirm and/or indicate the presence a possible neuroendocrine tumor. We will follow. Luz Elkins MD
[2017-11-22] MEDS: Levothyroxine 50 MCG TAB PO SCH (06:29)
[2017-11-22 06:42] LABS: BASO # 0.1 K/uL (0.0-0.2); BASO % 1.1 % (0.0-2.0); EOS # 0.2 K/uL (0.0-0.7); EOS % 3.2 % (0.0-4.0); HEMOGLOBIN 11.6 g/dL (12.0-16.0); LYMPH # 2.4 K/uL (1.0-4.3); MEAN CELL VOLUME 91.7 fl (81.0-99.0); MEAN CORPUSCULAR HEMOGLOBIN 31.4 pg (27.0-31.0); MEAN CORPUSCULAR HGB CONC 34.2 g/dL (33.0-37.0); MEAN PLATELET VOLUME 8.9 fl (7.2-11.7); MONO # 0.6 K/uL (0.0-0.8); MONO % 8.3 % (0.0-10.0); NEUT # 3.5 K/uL (1.8-7.0); NEUT % 51.4 % (50.0-75.0); NRBC % 0.3 % (0.0-0.0); RBC 3.71 Mil/uL (3.80-5.20); RED CELL DISTRIBUTION WIDTH 14.3 % (11.5-14.5); WHITE BLOOD COUNT 6.8 K/uL (4.8-10.8)
[2017-11-22 07:07] LABS: BLOOD UREA NITROGEN 18 mg/dl (7-17); CALCIUM 8.8 mg/dL (8.4-10.2); GFR AFRICAN-AMERICAN > 60; GFR NON-AFRICAN AMERICAN > 60
[2017-11-22] MEDS: Acetylcysteine 20% Inhal Soln (4ml) INH SCH ×2 (07:44→19:11)
[2017-11-22] MEDS: Albuterol-Ipratrop 3 mg / 0.5 (3 ml) UD INH PRN ×2 (07:44→19:11)
[2017-11-22] MEDS: Multivitamin With Minerals Tab PO SCH (08:46)
[2017-11-22] MEDS: Cholecalciferol 1,000 INTLU TAB PO SCH (08:46)
[2017-11-22] MEDS: Enoxaparin 80 mg Syringe SC SCH (08:48)
--- NOTE | 2017-11-22 17:09 | CP.PCM.PN ---
Subjective - Date & Time of Evaluation Date of Evaluation: 11/22/17 Time of Evaluation: 17:09 - Subjective Subjective: Patient comfortable, no new c/o Objective - Vital Signs/Intake and Output Vital Signs (last 24 hours): Temp Pulse Resp BP Pulse Ox 97.1 F L 80 20 126/70 95 11/22/17 16:29 11/22/17 16:29 11/22/17 16:29 11/22/17 16:29 11/22/17 16:29 - Medications Medications: Current Medications Acetylcysteine (Acetylcysteine 20%) 2 ml INH RBID [facility] Last Admin: 11/22/17 07:44 Dose: 2 ml Albuterol/Ipratropium (Duoneb 3 Mg/0.5 Mg (3 Ml) Ud) 3 ml INH RQ6 PRN PRN Reason: Shortness of Breath Last Admin: 11/22/17 07:44 Dose: 3 ml Apixaban (Eliquis) 5 mg PO BID [facility] PRN Reason: Protocol Atorvastatin Calcium (Lipitor) 10 mg PO HS [facility] Last Admin: 11/21/17 22:00 Dose: 10 mg Cholecalciferol (Vitamin D) 1,000 intlu PO DAILY [facility] Last Admin: 11/22/17 08:46 Dose: 1,000 intlu Enalapril Maleate (Vasotec) 5 mg PO DAILY [facility] Last Admin: 11/22/17 08:45 Dose: 5 mg Famotidine (Pepcid) 20 mg PO BID [facility] Last Admin: 11/22/17 08:45 Dose: 20 mg Gabapentin (Neurontin) 100 mg PO Q8 [facility] Last Admin: 11/22/17 08:46 Dose: 100 mg Levothyroxine Sodium (Synthroid) 50 mcg PO DAILY@0630 [facility] Last Admin: 11/22/17 06:29 Dose: 50 mcg Lorazepam (Ativan) 1 mg PO BID [facility] Last Admin: 11/22/17 08:45 Dose: 1 mg Multivitamins/Minerals (Therapeutic-M Tab) 1 tab PO DAILY [facility] Last Admin: 11/22/17 08:46 Dose: 1 tab Quetiapine Fumarate (Seroquel) 100 mg PO Q12 [facility] Last Admin: 11/22/17 08:46 Dose: 100 mg Simethicone (Mylicon Chew Tab) 80 mg PO TID PRN PRN Reason: Flatulence Last Admin: 11/21/17 08:07 Dose: 80 mg - Labs Labs: 11/22/17 05:40 11/22/17 05:40 - Constitutional Appears: Chronically Ill - Head Exam Head Exam: ATRAUMATIC, NORMAL INSPECTION, NORMOCEPHALIC - Eye Exam Eye Exam: Normal appearance - ENT Exam ENT Exam: Mucous Membranes Moist - Neck Exam Neck Exam: Full ROM - Respiratory Exam Respiratory Exam: Clear to Ausculation Bilateral - Cardiovascular Exam Cardiovascular Exam: REGULAR RHYTHM, +S1, +S2 - GI/Abdominal Exam GI & Abdominal Exam: Soft, Normal Bowel Sounds - Neurological Exam Neurological Exam: Alert, Awake, Normal Gait, Oriented x3 - Psychiatric Exam Psychiatric exam: Anxious - Skin Skin Exam: Normal Color Assessment and Plan (1) Pancreatic mass Status: Acute (2) Pneumonia Status: Acute (3) Pulmonary embolism Status: Acute (4) Anxiety Status: Chronic (5) Hypothyroid Status: Chronic (6) Debility Status: Acute - Assessment and Plan (Free Text) Plan: Continue present rx
--- NOTE | 2017-11-22 17:58 | CP.PCM.CON ---
History of Present Illness - History of Present Illness History of Present Illness: Podiatry consult notes for attending Laquita Schulz 82 y/o F patient with PMH of COPD and seen and evaluated at the bed side in TCU for elongated, dystrophic toe nails. Patient states that her toe nails bothering her as it got elongated and she can't rich it as she is arthritic. Patient has shortness of breathing ad wasn't comfortable at be. Patient is AAO X 3. patient denies any other pedal complaint. Patient denies any recent N or V. Patient is admitted to the hospital for treatment of pneumonia. Review of Systems - Review of Systems Review of Systems: As per HPI. Past Patient History - Infectious Disease Hx of Infectious Diseases: None - Tetanus Immunizations Tetanus Immunization: Unknown - Past Medical History & Family History Past Medical History?: Yes - Past Social History Smoking Status: Never Smoked Chewing Tobacco Use: No Cigar Use: No Alcohol: None Drugs: Denies - CARDIAC Hx Hypertension: Yes - PULMONARY Hx Pulmonary Embolism: Yes (2007) Hx Tuberculosis: No - NEUROLOGICAL Hx Neurological Disorder: No Hx Seizures: No - HEENT Hx HEENT Problems: No - RENAL Hx Chronic Kidney Disease: No - ENDOCRINE/METABOLIC Hx Hypothyroidism: Yes - HEMATOLOGICAL/ONCOLOGICAL Hx Blood Disorders: No Hx Human Immunodeficiency Virus (HIV): No - INTEGUMENTARY Hx Dermatological Problems: No - MUSCULOSKELETAL/RHEUMATOLOGICAL Hx Musculoskeletal Disorders: No Hx Falls: No - GASTROINTESTINAL Hx Constipation: Yes - GENITOURINARY/GYNECOLOGICAL Hx Genitourinary Disorders: No Hx Sexually Transmitted Disorders: No - PSYCHIATRIC Hx Anxiety: Yes Hx Bipolar Disorder: Yes Hx Depression: Yes Hx Substance Use: No - SURGICAL HISTORY Hx Cholecystectomy: Yes - ANESTHESIA Hx Anesthesia: Yes Hx Anesthesia Reactions: No Hx Malignant Hyperthermia: No Has any member of the family had a problem w/ anesthesia?: No Meds Allergies/Adverse Reactions: Allergies Allergy/AdvReac Type Severity Reaction Status Date / Time levofloxacin [From Levaquin] Allergy RASH Verified 11/10/17 14:00 - Medications Medications: Current Medications Acetylcysteine (Acetylcysteine 20%) 2 ml INH RBID [facility] Last Admin: 11/22/17 07:44 Dose: 2 ml Albuterol/Ipratropium (Duoneb 3 Mg/0.5 Mg (3 Ml) Ud) 3 ml INH RQ6 PRN PRN Reason: Shortness of Breath Last Admin: 11/22/17 07:44 Dose: 3 ml Apixaban (Eliquis) 5 mg PO BID [facility] PRN Reason: Protocol Last Admin: 11/22/17 17:31 Dose: 5 mg Atorvastatin Calcium (Lipitor) 10 mg PO HS [facility] Last Admin: 11/21/17 22:00 Dose: 10 mg Cholecalciferol (Vitamin D) 1,000 intlu PO DAILY [facility] Last Admin: 11/22/17 08:46 Dose: 1,000 intlu Enalapril Maleate (Vasotec) 5 mg PO DAILY [facility] Last Admin: 11/22/17 08:45 Dose: 5 mg Famotidine (Pepcid) 20 mg PO BID [facility] Last Admin: 11/22/17 17:31 Dose: 20 mg Gabapentin (Neurontin) 100 mg PO Q8 [facility] Last Admin: 11/22/17 17:31 Dose: 100 mg Levothyroxine Sodium (Synthroid) 50 mcg PO DAILY@0630 [facility] Last Admin: 11/22/17 06:29 Dose: 50 mcg Lorazepam (Ativan) 1 mg PO BID [facility] Last Admin: 11/22/17 08:45 Dose: 1 mg Multivitamins/Minerals (Therapeutic-M Tab) 1 tab PO DAILY [facility] Last Admin: 11/22/17 08:46 Dose: 1 tab Quetiapine Fumarate (Seroquel) 100 mg PO Q12 [facility] Last Admin: 11/22/17 08:46 Dose: 100 mg Simethicone (Mylicon Chew Tab) 80 mg PO TID PRN PRN Reason: Flatulence Last Admin: 11/21/17 08:07 Dose: 80 mg Physical Exam - Constitutional Appears: Well - Head Exam Head Exam: ATRAUMATIC, NORMOCEPHALIC - Extremities Exam Additional comments: Lower extremity focused exam: Vasc: DP/PT faintly palpable 1/4, Cap refill < 3 sec in all digits. Temp gradient warm to cool. Neuro: Protective and gross sensation are intact. Derm: Toe nails elongated and dystrophic X 10. No open lesions. No clinical signs of active bacterial infection. MSK: Diffuse arthritic changes and limited ROM of all the major joints of foot and ankle b/l. Muscle power 4/5 in all muscle groups b/l. - Neurological Exam Neurological exam: Alert, Oriented x3 - Psychiatric Exam Psychiatric exam: Normal Affect, Normal Mood Results - Vital Signs Recent Vital Signs: Last Vital Signs Temp 97.1 F L 11/22/17 16:29 Pulse 80 11/22/17 16:29 Resp 20 11/22/17 16:29 BP 126/70 11/22/17 16:29 Pulse Ox 95 11/22/17 16:29 - Labs Result Diagrams: 11/22/17 05:40 11/22/17 05:40 Labs: Laboratory Results - last 24 hr 11/22/17 11/22/17 05:40 05:40 WBC 6.8 RBC 3.71 L Hgb 11.6 L Hct 34.0 MCV 91.7 MCH 31.4 H MCHC 34.2 RDW 14.3 Plt Count 230 MPV 8.9 Neut % (Auto) 51.4 Lymph % (Auto) 36.0 [place] % (Auto) 8.3 Eos % (Auto) 3.2 Baso % (Auto) 1.1 Neut # (Auto) 3.5 Lymph # (Auto) 2.4 [place] # (Auto) 0.6 Eos # (Auto) 0.2 Baso # (Auto) 0.1 Sodium 142 Potassium 4.7 Chloride 104 Carbon Dioxide 30 Anion Gap 13 BUN 18 H Creatinine 0.9 Est GFR ( Amer) > 60 Est GFR (Non-Af Amer) > 60 Random Glucose 95 Calcium 8.8 Assessment & Plan - Assessment and Plan (Free Text) Assessment: 82 y/o F patient seen and evaluated at the bed side for toe nail care of elongated, dystrophic toe nails Plan: Patient seen and evaluated at the bedside plan discussed in details with attending Laquita Schulz Chart, labs and vitals reviewed; afebrile, no leukocytosis Patient toe nails debrided using sterile nail nipper. Patient nails cleaned using alcohol swabs. Patient tolerated the procedure well. Thank you for consulting podiatry service. - Date & Time Date: 11/22/17 Time: 18:34
--- NOTE | 2017-11-22 22:37 | PN ---
DATE: 11/22/2017 ENDO FOLLOWUP NOTE LOCATION: [facility]. SUBJECTIVE: This is an 82-year-old female with known history of hypothyroidism, currently clinically and biochemically euthyroid, on a low-dose levothyroxine replacement therapy. She also had an incidental finding of a pancreatic mass lesion and has undergone a comprehensive hormonal testing, and we are still awaiting the reports sent out to a reference lab to exclude any underlying neuroendocrine tumor accordingly. She has also been seen by Surgery and will undergo a possible endoscopic procedure and possible surgical resection if the patient and the family agree. She is currently on subcutaneous Lovenox for anticoagulation therapy as she presented here with bilateral pulmonary embolism as noted thereof. LABORATORY DATA: Her latest chemistries showed a BUN of 18, sodium 142, potassium 4.7, chloride 104, CO2 of 30, glucose 95 and creatinine 0.9. Her latest thyroid study showed a T4 of 6.78 with a TSH of 2.93 and a total T3 of 0.696. ASSESSMENT AND PLAN: So at this time, we will continue the low-dose levothyroxine given as 50 mcg once daily as ordered. We will also continue the serial chemistries and supplement accordingly as needed. We will concur with the present GI and surgical evaluation and workup has been undertaken at this time. Luz Elkins MD
[2017-11-23] MEDS: Levothyroxine 50 MCG TAB PO SCH (05:43)
[2017-11-23] MEDS: Albuterol-Ipratrop 3 mg / 0.5 (3 ml) UD INH PRN ×2 (07:36→19:03)
[2017-11-23] MEDS: Acetylcysteine 20% Inhal Soln (4ml) INH SCH ×2 (07:37→19:03)
[2017-11-23] MEDS: Simethicone 80 mg Chewtab PO PRN (08:44)
[2017-11-23] MEDS: Cholecalciferol 1,000 INTLU TAB PO SCH (08:44)
[2017-11-23] MEDS: Multivitamin With Minerals Tab PO SCH (08:44)
--- NOTE | 2017-11-23 11:09 | CP.PCM.PN ---
Subjective - Date & Time of Evaluation Date of Evaluation: 11/23/17 Time of Evaluation: 11:08 - Subjective Subjective: Started on Eliquis 5MG PO BID. Objective - Vital Signs/Intake and Output Vital Signs (last 24 hours): Temp Pulse Resp BP Pulse Ox 98.2 F 77 18 143/80 98 11/23/17 08:11 11/23/17 08:11 11/23/17 08:11 11/23/17 08:11 11/23/17 08:11 - Medications Medications: Current Medications Acetylcysteine (Acetylcysteine 20%) 2 ml INH RBID [facility] Last Admin: 11/23/17 07:37 Dose: 2 ml Albuterol/Ipratropium (Duoneb 3 Mg/0.5 Mg (3 Ml) Ud) 3 ml INH RQ6 PRN PRN Reason: Shortness of Breath Last Admin: 11/23/17 07:36 Dose: 3 ml Apixaban (Eliquis) 5 mg PO BID [facility] PRN Reason: Protocol Last Admin: 11/23/17 08:43 Dose: 5 mg Atorvastatin Calcium (Lipitor) 10 mg PO HS [facility] Last Admin: 11/22/17 21:29 Dose: 10 mg Cholecalciferol (Vitamin D) 1,000 intlu PO DAILY [facility] Last Admin: 11/23/17 08:44 Dose: 1,000 intlu Enalapril Maleate (Vasotec) 5 mg PO DAILY [facility] Last Admin: 11/23/17 08:43 Dose: 5 mg Famotidine (Pepcid) 20 mg PO BID [facility] Last Admin: 11/23/17 08:43 Dose: 20 mg Gabapentin (Neurontin) 100 mg PO Q8 [facility] Last Admin: 11/23/17 08:43 Dose: 100 mg Levothyroxine Sodium (Synthroid) 50 mcg PO DAILY@0630 [facility] Last Admin: 11/23/17 05:43 Dose: 50 mcg Lorazepam (Ativan) 1 mg PO BID [facility] Last Admin: 11/23/17 08:42 Dose: 1 mg Multivitamins/Minerals (Therapeutic-M Tab) 1 tab PO DAILY [facility] Last Admin: 11/23/17 08:44 Dose: 1 tab Quetiapine Fumarate (Seroquel) 100 mg PO Q12 [facility] Last Admin: 11/23/17 08:44 Dose: 100 mg Simethicone (Mylicon Chew Tab) 80 mg PO TID PRN PRN Reason: Flatulence Last Admin: 11/23/17 08:44 Dose: 80 mg - Labs Labs: 11/22/17 05:40 11/22/17 05:40 Assessment and Plan (1) Pancreatic mass Status: Acute (2) Pulmonary embolism Status: Acute
--- NOTE | 2017-11-23 13:19 | CP.PCM.PN ---
Subjective - Date & Time of Evaluation Date of Evaluation: 11/23/17 Time of Evaluation: 13:19 - Subjective Subjective: Patient in her usual status of health. Objective - Vital Signs/Intake and Output Vital Signs (last 24 hours): Temp Pulse Resp BP Pulse Ox 98.2 F 77 18 143/80 98 11/23/17 08:11 11/23/17 08:11 11/23/17 08:11 11/23/17 08:11 11/23/17 08:11 - Medications Medications: Current Medications Acetylcysteine (Acetylcysteine 20%) 2 ml INH RBID [facility] Last Admin: 11/23/17 07:37 Dose: 2 ml Albuterol/Ipratropium (Duoneb 3 Mg/0.5 Mg (3 Ml) Ud) 3 ml INH RQ6 PRN PRN Reason: Shortness of Breath Last Admin: 11/23/17 07:36 Dose: 3 ml Apixaban (Eliquis) 5 mg PO BID [facility] PRN Reason: Protocol Last Admin: 11/23/17 08:43 Dose: 5 mg Atorvastatin Calcium (Lipitor) 10 mg PO HS [facility] Last Admin: 11/22/17 21:29 Dose: 10 mg Cholecalciferol (Vitamin D) 1,000 intlu PO DAILY [facility] Last Admin: 11/23/17 08:44 Dose: 1,000 intlu Enalapril Maleate (Vasotec) 5 mg PO DAILY [facility] Last Admin: 11/23/17 08:43 Dose: 5 mg Famotidine (Pepcid) 20 mg PO BID [facility] Last Admin: 11/23/17 08:43 Dose: 20 mg Gabapentin (Neurontin) 100 mg PO Q8 [facility] Last Admin: 11/23/17 08:43 Dose: 100 mg Levothyroxine Sodium (Synthroid) 50 mcg PO DAILY@0630 [facility] Last Admin: 11/23/17 05:43 Dose: 50 mcg Lorazepam (Ativan) 1 mg PO BID [facility] Last Admin: 11/23/17 08:42 Dose: 1 mg Multivitamins/Minerals (Therapeutic-M Tab) 1 tab PO DAILY [facility] Last Admin: 11/23/17 08:44 Dose: 1 tab Quetiapine Fumarate (Seroquel) 100 mg PO Q12 [facility] Last Admin: 11/23/17 08:44 Dose: 100 mg Simethicone (Mylicon Chew Tab) 80 mg PO TID PRN PRN Reason: Flatulence Last Admin: 11/23/17 08:44 Dose: 80 mg - Labs Labs: 11/22/17 05:40 11/22/17 05:40 - Constitutional Appears: Chronically Ill - Head Exam Head Exam: ATRAUMATIC, NORMAL INSPECTION, NORMOCEPHALIC - Eye Exam Eye Exam: Normal appearance - ENT Exam ENT Exam: Mucous Membranes Moist - Neck Exam Neck Exam: Full ROM - Respiratory Exam Respiratory Exam: Clear to Ausculation Bilateral - Cardiovascular Exam Cardiovascular Exam: REGULAR RHYTHM, +S1, +S2 - GI/Abdominal Exam GI & Abdominal Exam: Soft, Normal Bowel Sounds - Extremities Exam Extremities Exam: Normal Inspection - Neurological Exam Neurological Exam: Alert, Awake, Oriented x3 - Psychiatric Exam Psychiatric exam: Anxious - Skin Skin Exam: Normal Color Assessment and Plan (1) Pancreatic mass Status: Acute (2) Pneumonia Status: Acute (3) Pulmonary embolism Status: Acute (4) Anxiety Status: Chronic (5) Hypothyroid Status: Chronic (6) Debility Status: Acute - Assessment and Plan (Free Text) Plan: Continue present rx.
--- NOTE | 2017-11-23 16:12 | CP.PCM.CON ---
History of Present Illness - History of Present Illness History of Present Illness: consult requested for anxiety pt is 82ys old female admitted for treatment of pneumonia pt has history of personality disorder, reported bipolar depression, has had ECT in the past and many other medication trials, generally poor responder to interventions, presented with worsening depression and anxiety. She reports that she has been complaint with her medications but is reporting debilitating anxiety, perseverates about how she cant breathe and this leads to her feeling depressed. NO AH/VH/SI/HI. No significant change in sleep or appetite. She has a hard time engaging in conversation and requesting no change in her medications Past Patient History - Infectious Disease Hx of Infectious Diseases: None - Tetanus Immunizations Tetanus Immunization: Unknown - Past Medical History & Family History Past Medical History?: Yes - Past Social History Smoking Status: Never Smoked Chewing Tobacco Use: No Cigar Use: No Alcohol: None Drugs: Denies - CARDIAC Hx Hypertension: Yes - PULMONARY Hx Pulmonary Embolism: Yes (2007) Hx Tuberculosis: No - NEUROLOGICAL Hx Neurological Disorder: No Hx Seizures: No - HEENT Hx HEENT Problems: No - RENAL Hx Chronic Kidney Disease: No - ENDOCRINE/METABOLIC Hx Hypothyroidism: Yes - HEMATOLOGICAL/ONCOLOGICAL Hx Blood Disorders: No Hx Human Immunodeficiency Virus (HIV): No - INTEGUMENTARY Hx Dermatological Problems: No - MUSCULOSKELETAL/RHEUMATOLOGICAL Hx Musculoskeletal Disorders: No Hx Falls: No - GASTROINTESTINAL Hx Constipation: Yes - GENITOURINARY/GYNECOLOGICAL Hx Genitourinary Disorders: No Hx Sexually Transmitted Disorders: No - PSYCHIATRIC Hx Anxiety: Yes Hx Bipolar Disorder: Yes Hx Depression: Yes Hx Substance Use: No - SURGICAL HISTORY Hx Cholecystectomy: Yes - ANESTHESIA Hx Anesthesia: Yes Hx Anesthesia Reactions: No Hx Malignant Hyperthermia: No Has any member of the family had a problem w/ anesthesia?: No Meds Allergies/Adverse Reactions: Allergies Allergy/AdvReac Type Severity Reaction Status Date / Time levofloxacin [From Levaquin] Allergy RASH Verified 11/10/17 14:00 - Medications Medications: Current Medications Acetylcysteine (Acetylcysteine 20%) 2 ml INH RBID [facility] Last Admin: 11/23/17 07:37 Dose: 2 ml Albuterol/Ipratropium (Duoneb 3 Mg/0.5 Mg (3 Ml) Ud) 3 ml INH RQ6 PRN PRN Reason: Shortness of Breath Last Admin: 11/23/17 07:36 Dose: 3 ml Apixaban (Eliquis) 5 mg PO BID [facility] PRN Reason: Protocol Last Admin: 11/23/17 08:43 Dose: 5 mg Atorvastatin Calcium (Lipitor) 10 mg PO HS [facility] Last Admin: 11/22/17 21:29 Dose: 10 mg Cholecalciferol (Vitamin D) 1,000 intlu PO DAILY [facility] Last Admin: 11/23/17 08:44 Dose: 1,000 intlu Enalapril Maleate (Vasotec) 5 mg PO DAILY [facility] Last Admin: 11/23/17 08:43 Dose: 5 mg Famotidine (Pepcid) 20 mg PO BID [facility] Last Admin: 11/23/17 08:43 Dose: 20 mg Gabapentin (Neurontin) 100 mg PO Q8 [facility] Last Admin: 11/23/17 08:43 Dose: 100 mg Levothyroxine Sodium (Synthroid) 50 mcg PO DAILY@0630 [facility] Last Admin: 11/23/17 05:43 Dose: 50 mcg Lorazepam (Ativan) 1 mg PO BID [facility] Last Admin: 11/23/17 08:42 Dose: 1 mg Multivitamins/Minerals (Therapeutic-M Tab) 1 tab PO DAILY [facility] Last Admin: 11/23/17 08:44 Dose: 1 tab Quetiapine Fumarate (Seroquel) 100 mg PO Q12 [facility] Last Admin: 11/23/17 08:44 Dose: 100 mg Simethicone (Mylicon Chew Tab) 80 mg PO TID PRN PRN Reason: Flatulence Last Admin: 11/23/17 08:44 Dose: 80 mg Physical Exam - Psychiatric Exam Additional comments: pt seen in bed, alert awake ox3 , anxious mood and affect, thought form coherent , denied any current suicidal or homicidal ideation, denied perceptual disturbances Results - Vital Signs Recent Vital Signs: Last Vital Signs Temp 98.2 F 11/23/17 08:11 Pulse 77 11/23/17 08:11 Resp 18 11/23/17 08:11 BP 143/80 11/23/17 08:11 Pulse Ox 98 11/23/17 08:11 - Labs Result Diagrams: 11/22/17 05:40 11/22/17 05:40 Assessment & Plan - Assessment and Plan (Free Text) Assessment: generalized anxiety disorder hx of bipolar disoder Plan: continue with neurontin and seroquel, and ativan prn
--- NOTE | 2017-11-24 01:25 | PN ---
DATE: 11/23/2017 LOCATION: Room 707. This is an 82-year-old female with known history of hypothyroidism, now remains clinically and biochemically euthyroid on a low-dose levothyroxine replacement therapy and is now undergoing management for recent pneumonitis and also acute pulmonary embolism as noted thereof. She also is undergoing workup for incidental finding of a pancreatic mass lesion, and we are awaiting the hormonal reports sent out to reference lab as noted. Her latest chemistry showed a BUN of 18, sodium 142, potassium 4.7, chloride 104, CO2 of 30, glucose 95, and creatinine 0.9. Her TSH is 2.93 with a T4 of 6.78. So at this time, we will continue the same levothyroxine given as 50 mcg once daily in the morning as ordered. She is also undergoing surgical evaluation for the pancreatic mass lesion as noted. We will obtain serial chemistries and supplement accordingly as needed. We will follow. Luz Elkins MD
[2017-11-24] MEDS: Levothyroxine 50 MCG TAB PO SCH (05:41)
[2017-11-24] MEDS: Acetylcysteine 20% Inhal Soln (4ml) INH SCH ×2 (07:36→19:12)
[2017-11-24] MEDS: Albuterol-Ipratrop 3 mg / 0.5 (3 ml) UD INH PRN ×2 (07:36→19:12)
[2017-11-24] MEDS: Cholecalciferol 1,000 INTLU TAB PO SCH (08:18)
[2017-11-24] MEDS: Multivitamin With Minerals Tab PO SCH (08:18)
--- NOTE | 2017-11-24 09:34 | CP.PCM.PN ---
Subjective - Date & Time of Evaluation Date of Evaluation: 11/24/17 Time of Evaluation: 09:29 - Subjective Subjective: Pt has still not made up her mind if she wants the EUS and surgery . She gets very anxious when anybody speaks to her to the point that she is almost incohorent. She seems to be ok with EUS but not so sure about the surgery. Objective - Vital Signs/Intake and Output Vital Signs (last 24 hours): Temp Pulse Resp BP Pulse Ox 97.1 F L 82 20 154/87 H 96 11/24/17 08:36 11/24/17 08:36 11/24/17 08:36 11/24/17 08:36 11/24/17 08:36 - Medications Medications: Current Medications Acetylcysteine (Acetylcysteine 20%) 2 ml INH RBID [facility] Last Admin: 11/24/17 07:36 Dose: 2 ml Albuterol/Ipratropium (Duoneb 3 Mg/0.5 Mg (3 Ml) Ud) 3 ml INH RQ6 PRN PRN Reason: Shortness of Breath Last Admin: 11/24/17 07:36 Dose: 3 ml Apixaban (Eliquis) 5 mg PO BID [facility] PRN Reason: Protocol Last Admin: 11/24/17 08:18 Dose: 5 mg Atorvastatin Calcium (Lipitor) 10 mg PO HS [facility] Last Admin: 11/23/17 21:47 Dose: 10 mg Cholecalciferol (Vitamin D) 1,000 intlu PO DAILY [facility] Last Admin: 11/24/17 08:18 Dose: 1,000 intlu Enalapril Maleate (Vasotec) 5 mg PO DAILY [facility] Last Admin: 11/24/17 08:18 Dose: 5 mg Famotidine (Pepcid) 20 mg PO BID [facility] Last Admin: 11/24/17 08:18 Dose: 20 mg Gabapentin (Neurontin) 100 mg PO Q8 [facility] Last Admin: 11/24/17 08:18 Dose: 100 mg Levothyroxine Sodium (Synthroid) 50 mcg PO DAILY@0630 [facility] Last Admin: 11/24/17 05:41 Dose: 50 mcg Lorazepam (Ativan) 1 mg PO BID [facility] Last Admin: 11/24/17 08:17 Dose: 1 mg Multivitamins/Minerals (Therapeutic-M Tab) 1 tab PO DAILY [facility] Last Admin: 11/24/17 08:18 Dose: 1 tab Quetiapine Fumarate (Seroquel) 100 mg PO Q12 [facility] Last Admin: 11/24/17 08:17 Dose: 100 mg Simethicone (Mylicon Chew Tab) 80 mg PO TID PRN PRN Reason: Flatulence Last Admin: 11/23/17 08:44 Dose: 80 mg - Labs Labs: 11/22/17 05:40 11/22/17 05:40
--- NOTE | 2017-11-24 13:28 | CP.PCM.PN ---
Subjective - Date & Time of Evaluation Date of Evaluation: 11/24/17 Time of Evaluation: 13:28 - Subjective Subjective: No new changes, comfortable Objective - Vital Signs/Intake and Output Vital Signs (last 24 hours): Temp Pulse Resp BP Pulse Ox 97.1 F L 82 20 154/87 H 92 L 11/24/17 08:36 11/24/17 08:36 11/24/17 08:36 11/24/17 08:36 11/24/17 10:47 - Medications Medications: Current Medications Acetylcysteine (Acetylcysteine 20%) 2 ml INH RBID [facility] Last Admin: 11/24/17 07:36 Dose: 2 ml Albuterol/Ipratropium (Duoneb 3 Mg/0.5 Mg (3 Ml) Ud) 3 ml INH RQ6 PRN PRN Reason: Shortness of Breath Last Admin: 11/24/17 07:36 Dose: 3 ml Apixaban (Eliquis) 5 mg PO BID [facility] PRN Reason: Protocol Last Admin: 11/24/17 08:18 Dose: 5 mg Atorvastatin Calcium (Lipitor) 10 mg PO HS [facility] Last Admin: 11/23/17 21:47 Dose: 10 mg Cholecalciferol (Vitamin D) 1,000 intlu PO DAILY [facility] Last Admin: 11/24/17 08:18 Dose: 1,000 intlu Enalapril Maleate (Vasotec) 5 mg PO DAILY [facility] Last Admin: 11/24/17 08:18 Dose: 5 mg Famotidine (Pepcid) 20 mg PO BID [facility] Last Admin: 11/24/17 08:18 Dose: 20 mg Gabapentin (Neurontin) 100 mg PO Q8 [facility] Last Admin: 11/24/17 08:18 Dose: 100 mg Levothyroxine Sodium (Synthroid) 50 mcg PO DAILY@0630 [facility] Last Admin: 11/24/17 05:41 Dose: 50 mcg Lorazepam (Ativan) 1 mg PO BID [facility] Last Admin: 11/24/17 08:17 Dose: 1 mg Multivitamins/Minerals (Therapeutic-M Tab) 1 tab PO DAILY [facility] Last Admin: 11/24/17 08:18 Dose: 1 tab Quetiapine Fumarate (Seroquel) 100 mg PO Q12 [facility] Last Admin: 11/24/17 08:17 Dose: 100 mg Simethicone (Mylicon Chew Tab) 80 mg PO TID PRN PRN Reason: Flatulence Last Admin: 11/23/17 08:44 Dose: 80 mg - Labs Labs: 11/22/17 05:40 11/22/17 05:40 - Constitutional Appears: Chronically Ill - Head Exam Head Exam: ATRAUMATIC, NORMAL INSPECTION, NORMOCEPHALIC - Eye Exam Eye Exam: Normal appearance - ENT Exam ENT Exam: Mucous Membranes Moist - Neck Exam Neck Exam: Full ROM - Respiratory Exam Respiratory Exam: Clear to Ausculation Bilateral - Cardiovascular Exam Cardiovascular Exam: REGULAR RHYTHM, +S1, +S2 - GI/Abdominal Exam GI & Abdominal Exam: Soft, Normal Bowel Sounds - Neurological Exam Neurological Exam: Alert, Awake, Oriented x3 - Psychiatric Exam Psychiatric exam: Anxious - Skin Skin Exam: Normal Color Assessment and Plan (1) Pancreatic mass Status: Acute (2) Pneumonia Status: Acute (3) Pulmonary embolism Status: Acute (4) Anxiety Status: Chronic (5) Hypothyroid Status: Chronic (6) Debility Status: Acute - Assessment and Plan (Free Text) Plan: Continue present rx.
--- NOTE | 2017-11-24 18:49 | PN ---
DATE: 11/24/2017 ENDO FOLLOWUP NOTE LOCATION: In room 707 TCU. SUBJECTIVE: This is an 82-year-old female with known history of hypothyroidism, currently tolerating the levothyroxine replacement therapy as given. She remains clinically and biochemically euthyroid at this time. She also is being treated with subcutaneous Lovenox for anticoagulation because of the recent acute pulmonary embolism as noted thereof. Moreover, she also has been seen by Surgery for evaluation and management of an incidental finding of a pancreatic mass lesion as noted by CAT scan of the abdomen. She has undergone a comprehensive hormonal profile, the results of which are still pending as they were sent out to a reference lab and this will exclude the presence of an underlying neuroendocrine tumor. PLAN: We will obtain serial chemistries and supplement accordingly needed. We will follow. Luz Elkins MD
[2017-11-25] MEDS: Levothyroxine 50 MCG TAB PO SCH (05:49)
[2017-11-25] MEDS: Albuterol-Ipratrop 3 mg / 0.5 (3 ml) UD INH PRN ×2 (07:51→19:08)
[2017-11-25] MEDS: Acetylcysteine 20% Inhal Soln (4ml) INH SCH ×2 (07:51→19:11)
[2017-11-25] MEDS: Multivitamin With Minerals Tab PO SCH (08:29)
[2017-11-25] MEDS: Cholecalciferol 1,000 INTLU TAB PO SCH (08:29)
--- NOTE | 2017-11-25 14:02 | PN ---
DATE: 11/25/2017 SUBJECTIVE: Text. LOCATION: Room 707. SUBJECTIVE: This is an 82-year-old female with recent admission for acute pulmonary embolism and progressive shortness of breath and has since then improved clinically and hemodynamically as noted thereof. She has since then been switched over from subcutaneous Lovenox anticoagulation therapy to oral anticoagulation with Eliquis, Eliquis given as 5 mg b.i.d. as ordered. She also has known history of hypothyroidism and remains clinically and biochemically euthyroid at this time. Her latest chemistry showed a BUN of 18, sodium 142, potassium 4.7, chloride 104, CO2 30, glucose 95 and creatinine 0.9. Her latest thyroid study showed a T4 of 6.78 with a TSH of 2.93 and a total T3 of 0.69. So at this time, we will continue the levothyroxine given as 50 mcg once daily in the morning as ordered. We will obtain serial thyroid studies and titrate her dose regimen accordingly. 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 We will follow with this. Luz Elkins MD
--- NOTE | 2017-11-25 17:39 | CP.PCM.PN ---
Subjective - Date & Time of Evaluation Date of Evaluation: 11/25/17 Time of Evaluation: 17:38 - Subjective Subjective: Patient in her usual status of health, no distress, same anxiety. Objective - Vital Signs/Intake and Output Vital Signs (last 24 hours): Temp Pulse Resp BP Pulse Ox 97.9 F 81 19 127/72 94 L 11/25/17 16:17 11/25/17 16:17 11/25/17 16:17 11/25/17 16:17 11/25/17 16:17 - Medications Medications: Current Medications Acetaminophen (Tylenol 325mg Tab) 650 mg PO Q4 PRN PRN Reason: Pain, Mild (1-3) Last Admin: 11/25/17 10:45 Dose: 650 mg Acetylcysteine (Acetylcysteine 20%) 2 ml INH RBID [facility] Last Admin: 11/25/17 07:51 Dose: 2 ml Albuterol/Ipratropium (Duoneb 3 Mg/0.5 Mg (3 Ml) Ud) 3 ml INH RQ6 PRN PRN Reason: Shortness of Breath Last Admin: 11/25/17 07:51 Dose: 3 ml Apixaban (Eliquis) 5 mg PO BID [facility] PRN Reason: Protocol Last Admin: 11/25/17 16:07 Dose: 5 mg Atorvastatin Calcium (Lipitor) 10 mg PO HS [facility] Last Admin: 11/24/17 21:01 Dose: 10 mg Cholecalciferol (Vitamin D) 1,000 intlu PO DAILY [facility] Last Admin: 11/25/17 08:29 Dose: 1,000 intlu Enalapril Maleate (Vasotec) 5 mg PO DAILY [facility] Last Admin: 11/25/17 08:29 Dose: 5 mg Famotidine (Pepcid) 20 mg PO BID [facility] Last Admin: 11/25/17 16:07 Dose: 20 mg Gabapentin (Neurontin) 100 mg PO Q8 [facility] Last Admin: 11/25/17 16:07 Dose: 100 mg Levothyroxine Sodium (Synthroid) 50 mcg PO DAILY@0630 [facility] Last Admin: 11/25/17 05:49 Dose: 50 mcg Lorazepam (Ativan) 1 mg PO BID [facility] Last Admin: 11/25/17 16:07 Dose: 1 mg Multivitamins/Minerals (Therapeutic-M Tab) 1 tab PO DAILY [facility] Last Admin: 11/25/17 08:29 Dose: 1 tab Quetiapine Fumarate (Seroquel) 100 mg PO Q12 [facility] Last Admin: 11/25/17 08:29 Dose: 100 mg Simethicone (Mylicon Chew Tab) 80 mg PO TID PRN PRN Reason: Flatulence Last Admin: 11/23/17 08:44 Dose: 80 mg - Labs Labs: 11/22/17 05:40 11/22/17 05:40 - Constitutional Appears: Chronically Ill - Head Exam Head Exam: ATRAUMATIC, NORMAL INSPECTION, NORMOCEPHALIC - Eye Exam Eye Exam: Normal appearance - ENT Exam ENT Exam: Mucous Membranes Moist - Neck Exam Neck Exam: Full ROM - Respiratory Exam Respiratory Exam: Clear to Ausculation Bilateral - Cardiovascular Exam Cardiovascular Exam: REGULAR RHYTHM, +S1, +S2 - GI/Abdominal Exam GI & Abdominal Exam: Soft, Normal Bowel Sounds - Extremities Exam Extremities Exam: Normal Inspection - Neurological Exam Neurological Exam: Alert, Awake, Normal Gait - Psychiatric Exam Psychiatric exam: Anxious - Skin Skin Exam: Normal Color Assessment and Plan (1) Pancreatic mass Status: Acute (2) Pneumonia Status: Acute (3) Pulmonary embolism Status: Acute (4) Anxiety Status: Chronic (5) Hypothyroid Status: Chronic (6) Debility Status: Acute - Assessment and Plan (Free Text) Plan: Continue present rx
[2017-11-25 20:03] VITALS: RESP 20
[2017-11-26] MEDS: Levothyroxine 50 MCG TAB PO SCH (05:37)
[2017-11-26 07:02] LABS: BASO # 0.1 K/uL (0.0-0.2); BASO % 1.3 % (0.0-2.0); EOS # 0.2 K/uL (0.0-0.7); EOS % 3.2 % (0.0-4.0); HEMOGLOBIN 11.9 g/dL (12.0-16.0); LYMPH # 2.4 K/uL (1.0-4.3); LYMPH % 35.7 % (20.0-40.0); MEAN CORPUSCULAR HEMOGLOBIN 31.5 pg (27.0-31.0); MEAN CORPUSCULAR HGB CONC 34.6 g/dL (33.0-37.0); MEAN PLATELET VOLUME 8.8 fl (7.2-11.7); MONO # 0.7 K/uL (0.0-0.8); MONO % 9.6 % (0.0-10.0); NEUT # 3.4 K/uL (1.8-7.0); NEUT % 50.2 % (50.0-75.0); NRBC % 0.1 % (0.0-0.0); RBC 3.77 Mil/uL (3.80-5.20); RED CELL DISTRIBUTION WIDTH 13.6 % (11.5-14.5); WHITE BLOOD COUNT 6.8 K/uL (4.8-10.8)
[2017-11-26 07:16] LABS: ALB/GLOB RATIO 1.3 (1.0-2.1); ALBUMIN 3.3 g/dL (3.5-5.0); ALT/SGPT 82 U/L (9-52); AST/SGOT 46 U/L (14-36); BLOOD UREA NITROGEN 20 mg/dl (7-17); CALCIUM 9.1 mg/dL (8.4-10.2); GFR AFRICAN-AMERICAN > 60; GFR NON-AFRICAN AMERICAN 53
[2017-11-26 07:20] LABS: T4 7.01 ug/dl (5.5-11.0)
[2017-11-26] MEDS: Albuterol-Ipratrop 3 mg / 0.5 (3 ml) UD INH PRN ×2 (08:10→19:21)
[2017-11-26] MEDS: Acetylcysteine 20% Inhal Soln (4ml) INH SCH ×2 (08:10→19:21)
[2017-11-26] MEDS: Multivitamin With Minerals Tab PO SCH (08:39)
[2017-11-26] MEDS: Cholecalciferol 1,000 INTLU TAB PO SCH (08:39)
[2017-11-26] MEDS: Simethicone 80 mg Chewtab PO PRN (08:48)
--- NOTE | 2017-11-26 10:42 | CP.PCM.PN ---
Subjective - Date & Time of Evaluation Date of Evaluation: 11/26/17 Time of Evaluation: 10:42 - Subjective Subjective: Comfortable not in distress Objective - Vital Signs/Intake and Output Vital Signs (last 24 hours): Temp Pulse Resp BP Pulse Ox 97.7 F 75 20 138/90 96 11/26/17 08:30 11/26/17 08:30 11/26/17 08:30 11/26/17 08:30 11/26/17 08:30 - Medications Medications: Current Medications Acetaminophen (Tylenol 325mg Tab) 650 mg PO Q4 PRN PRN Reason: Pain, Mild (1-3) Last Admin: 11/26/17 09:31 Dose: 650 mg Acetylcysteine (Acetylcysteine 20%) 2 ml INH RBID [facility] Last Admin: 11/26/17 08:10 Dose: 2 ml Albuterol/Ipratropium (Duoneb 3 Mg/0.5 Mg (3 Ml) Ud) 3 ml INH RQ6 PRN PRN Reason: Shortness of Breath Last Admin: 11/26/17 08:10 Dose: 3 ml Apixaban (Eliquis) 5 mg PO BID [facility] PRN Reason: Protocol Last Admin: 11/26/17 08:39 Dose: 5 mg Atorvastatin Calcium (Lipitor) 10 mg PO HS [facility] Last Admin: 11/25/17 21:24 Dose: 10 mg Cholecalciferol (Vitamin D) 1,000 intlu PO DAILY [facility] Last Admin: 11/26/17 08:39 Dose: 1,000 intlu Enalapril Maleate (Vasotec) 5 mg PO DAILY [facility] Last Admin: 11/26/17 08:38 Dose: 5 mg Famotidine (Pepcid) 20 mg PO BID [facility] Last Admin: 11/26/17 08:39 Dose: 20 mg Gabapentin (Neurontin) 100 mg PO Q8 [facility] Last Admin: 11/26/17 08:39 Dose: 100 mg Lactobacillus Acidophilus (Bacid Acidophilus) 1 cap PO BID [facility] Levothyroxine Sodium (Synthroid) 50 mcg PO DAILY@0630 [facility] Last Admin: 11/26/17 05:37 Dose: 50 mcg Lorazepam (Ativan) 1 mg PO BID [facility] Last Admin: 11/26/17 08:38 Dose: 1 mg Multivitamins/Minerals (Therapeutic-M Tab) 1 tab PO DAILY [facility] Last Admin: 11/26/17 08:39 Dose: 1 tab Quetiapine Fumarate (Seroquel) 100 mg PO Q12 [facility] Last Admin: 11/26/17 08:38 Dose: 100 mg Simethicone (Mylicon Chew Tab) 80 mg PO TID PRN PRN Reason: Flatulence Last Admin: 11/26/17 08:48 Dose: 80 mg - Labs Labs: 11/26/17 05:30 11/26/17 05:30 - Constitutional Appears: Chronically Ill - Head Exam Head Exam: ATRAUMATIC, NORMAL INSPECTION, NORMOCEPHALIC - Eye Exam Eye Exam: Normal appearance - ENT Exam ENT Exam: Mucous Membranes Moist - Neck Exam Neck Exam: Full ROM - Respiratory Exam Respiratory Exam: Clear to Ausculation Bilateral - Cardiovascular Exam Cardiovascular Exam: REGULAR RHYTHM, +S1, +S2 - GI/Abdominal Exam GI & Abdominal Exam: Soft, Normal Bowel Sounds - Extremities Exam Extremities Exam: Normal Inspection - Neurological Exam Neurological Exam: Alert, Awake, Oriented x3 - Psychiatric Exam Psychiatric exam: Anxious - Skin Skin Exam: Normal Color Assessment and Plan (1) Pancreatic mass Status: Acute (2) Pneumonia Status: Acute (3) Pulmonary embolism Status: Acute (4) Anxiety Status: Chronic (5) Hypothyroid Status: Chronic (6) Debility Status: Acute - Assessment and Plan (Free Text) Plan: Continue present rx
[2017-11-26] MEDS: Lactobacillus Acidophilus 500 MU Cap PO SCH ×2 (11:19→16:22)
--- NOTE | 2017-11-26 14:59 | PN ---
DATE: 11/26/2017 ENDO FOLLOWUP NOTE LOCATION: In room 707 TCU. SUBJECTIVE: This is an 82-year-old female with recent admission for acute pulmonary embolism and has since then improved clinically and hemodynamically as noted thereof. She has been switched over now from subcutaneous anticoagulation therapy to oral anticoagulants using Eliquis therapy as noted and given. She also remains clinically and biochemically euthyroid at this time and the latest thyroid studies done today showed a T4 or thyroxine level of 7.01 with a TSH of 2.71. Her chemistry showed a BUN of 20, sodium 143, potassium 4.4, chloride 104, CO2 of 30, glucose 94, and creatinine 1. ASSESSMENT AND PLAN: So at this time, we will continue the levothyroxine given as 50 mcg once daily as ordered. We will also continue the serial chemistries and supplement accordingly as needed. We are awaiting the surgical evaluation and decision regarding the management of an incidental finding of a hypervascular mass lesion in the head of the pancreas as noted. A comprehensive hormonal profile has been sent out to exclude an underlying neuroendocrine tumor and all the results are pending at this time. We will follow. Luz Elkins MD
[2017-11-26 19:59] VITALS: BP 114/51; O2SAT 94
[2017-11-27] MEDS: Levothyroxine 50 MCG TAB PO SCH (06:27)
[2017-11-27] MEDS: Albuterol-Ipratrop 3 mg / 0.5 (3 ml) UD INH PRN (07:14)
[2017-11-27] MEDS: Acetylcysteine 20% Inhal Soln (4ml) INH SCH (07:15)
[2017-11-27 08:17] VITALS: PULSE 70; TEMP 96.6
[2017-11-27] MEDS: Multivitamin With Minerals Tab PO SCH (08:54)
[2017-11-27] MEDS: Lactobacillus Acidophilus 500 MU Cap PO SCH (08:54)
[2017-11-27] MEDS: Cholecalciferol 1,000 INTLU TAB PO SCH (08:54)
--- NOTE | 2017-11-27 11:04 | CP.PCM.DIS ---
Provider - Provider Date of Admission: 11/17/17 23:04 Attending physician: Loi Patel MD Time Spent in preparation of Discharge (in minutes): 30 Diagnosis - Discharge Diagnosis (1) Pancreatic mass Status: Acute Priority: High (2) Pneumonia Status: Acute (3) Pulmonary embolism Status: Acute Priority: High (4) Anxiety Status: Chronic (5) Hypothyroid Status: Chronic (6) Debility Status: Acute Hospital Course - Lab Results Lab Results: Most Recent Lab Values WBC 6.8 K/uL (4.8-10.8) 11/26/17 05:30 RBC 3.77 Mil/uL (3.80-5.20) L 11/26/17 05:30 Hgb 11.9 g/dL (12.0-16.0) L 11/26/17 05:30 Hct 34.3 % (34.0-47.0) 11/26/17 05:30 MCV 91.0 fl (81.0-99.0) 11/26/17 05:30 MCH 31.5 pg (27.0-31.0) H 11/26/17 05:30 MCHC 34.6 g/dL (33.0-37.0) 11/26/17 05:30 RDW 13.6 % (11.5-14.5) 11/26/17 05:30 Plt Count 269 K/uL (130-400) 11/26/17 05:30 MPV 8.8 fl (7.2-11.7) 11/26/17 05:30 Neut % (Auto) 50.2 % (50.0-75.0) 11/26/17 05:30 Lymph % (Auto) 35.7 % (20.0-40.0) 11/26/17 05:30 Rolette % (Auto) 9.6 % (0.0-10.0) 11/26/17 05:30 Eos % (Auto) 3.2 % (0.0-4.0) 11/26/17 05:30 Baso % (Auto) 1.3 % (0.0-2.0) 11/26/17 05:30 Neut # (Auto) 3.4 K/uL (1.8-7.0) 11/26/17 05:30 Lymph # (Auto) 2.4 K/uL (1.0-4.3) 11/26/17 05:30 Rolette # (Auto) 0.7 K/uL (0.0-0.8) 11/26/17 05:30 Eos # (Auto) 0.2 K/uL (0.0-0.7) 11/26/17 05:30 Baso # (Auto) 0.1 K/uL (0.0-0.2) 11/26/17 05:30 Sodium 143 mmol/l (132-148) 11/26/17 05:30 Potassium 4.4 MMOL/L (3.6-5.0) 11/26/17 05:30 Chloride 104 mmol/L (98-107) 11/26/17 05:30 Carbon Dioxide 30 mmol/L (22-30) 11/26/17 05:30 Anion Gap 13 (10-20) 11/26/17 05:30 BUN 20 mg/dl (7-17) H 11/26/17 05:30 Creatinine 1.0 mg/dl (0.7-1.2) 11/26/17 05:30 Est GFR ( Amer) > 60 11/26/17 05:30 Est GFR (Non-Af Amer) 53 11/26/17 05:30 Random Glucose 94 mg/dL (65-105) 11/26/17 05:30 Hemoglobin A1c 5.6 % (4.2-6.5) 11/18/17 05:30 Calcium 9.1 mg/dL (8.4-10.2) 11/26/17 05:30 Total Bilirubin 0.3 mg/dl (0.2-1.3) 11/26/17 05:30 AST 46 U/L (14-36) H D 11/26/17 05:30 ALT 82 U/L (9-52) H D 11/26/17 05:30 Alkaline Phosphatase 50 U/L (38-126) 11/26/17 05:30 Total Protein 5.8 G/DL (6.3-8.2) L 11/26/17 05:30 Albumin 3.3 g/dL (3.5-5.0) L 11/26/17 05:30 Globulin 2.5 gm/dL (2.2-3.9) 11/26/17 05:30 Albumin/Globulin Ratio 1.3 (1.0-2.1) 11/26/17 05:30 Carcinoembryonic Ag 1.9 ng/mL (0-3.0) 11/18/17 05:30 Vitamin B12 391 pg/mL (239-931) 11/18/17 05:30 Folate > 20.0 ng/mL 11/18/17 05:30 Thyroxine (T4) 7.01 ug/dl (5.5-11.0) 11/26/17 05:30 Total T3 0.696 nmol/L (1.49-2.60) L 11/18/17 05:30 TSH 3rd Generation 2.71 mIU/ML (0.46-4.68) 11/26/17 05:30 - Hospital Course Hospital Course: Patient is a 82 y/o lady presented in ER with new onset of severe SOB, cough with tachypnea and hypoxemia by ABG. A CRX was performed and reveled an pulmonary infiltrate. She has a baseline anxiety disorders, but she presented with severe anxiety and at times with delirium. The D-DIMER were elevated and in consideration of the low O2 saturation a CTscan was ordered to R/O PE.She is less anxious, she was seen by a psychiatry that recommended to increase the benzo to control her anxiety. Still c/o SOB and anxiety. No peripheral DVT. During the hospitalization she c/o same abdominal discomfort. A Ct scan reveled a pancreatic mass. She and the family was informed about the ct scan report. I had several conversation with Alok (son) and with then patient to explain in detals the findings and the plan for further dx and rx. At present she is treated for pneumonia PE and debility. A w/u for meuroendocrine still pending. She well responded to rx. Will dc home. Patient and family instructed for f/u for pancreas bx. Discharge Exam - Head Exam Head Exam: ATRAUMATIC, NORMAL INSPECTION, NORMOCEPHALIC - Eye Exam Eye Exam: Normal appearance - Respiratory Exam Respiratory Exam: Clear to PA & Lateral - Cardiovascular Exam Cardiovascular Exam: REGULAR RHYTHM, +S1, +S2 - GI/Abdominal Exam GI & Abdominal Exam: Normal Bowel Sounds - Extremities Exam Extremities exam: normal inspection - Neurological Exam Neurological exam: Alert, CN II-XII Intact, Oriented x3 - Psychiatric Exam Psychiatric exam: Anxious - Skin Skin Exam: Normal Color Discharge Plan - Follow Up Plan Condition: GOOD Disposition: HOME/ ROUTINE
--- NOTE | 2017-11-27 17:28 | PN ---
DATE: 11/27/2017 ENDO FOLLOWUP NOTE LOCATION: In room 707 TCU. SUBJECTIVE: This is a 82-year-old female presenting here with acute pulmonary embolism and received subcutaneous anticoagulation and has since then improved clinically and hemodynamically and is currently on oral anticoagulation therapy as given. She also remains clinically and biochemically euthyroid on the low-dose of levothyroxine therapy as given. LABORATORY DATA: Her latest chemistries showed a BUN of 20, sodium 143, potassium 4.4, chloride 104, CO2 of 30, glucose 94, and creatinine 1. Her latest thyroid study showed a T4 of 7.01 with a TSH of 2.71. ASSESSMENT AND PLAN: So at this time, we will continue the levothyroxine given as 50 mcg once daily as ordered. She is also undergoing a surgical evaluation and workup for an incidental finding of a 2 x 2 hypervascular mass lesion in the head of the pancreas noted on CAT scan of the abdomen. A comprehensive hormonal profile has been sent out to a reference lab, which will confirm and/or indicate the presence of an underlying neuroendocrine tumor. We will obtain serial chemistries and supplement accordingly as needed. We will follow. Luz Elkins MD
== END 2017-11-27 12:35 | disposition home or self-care (01) | DRG 193 ==
LOC: H.TCU 23:04
PROVIDERS: ADMIT Internal Medicine; ATTEND Internal Medicine
PROC: 3E03329 Introduction of Other Anti-infective into Peripheral Vein, Percutaneous Approach (ICD-10-PCS; principal; 2017-11-17)
PROC: 3E0F7GC Introduction of Other Therapeutic Substance into Respiratory Tract, Via Natural or Artificial Opening (ICD-10-PCS; 2017-11-18)
PROC: F07M6FZ Therapeutic Exercise Treatment of Musculoskeletal System - Whole Body using Assistive, Adaptive, Supportive or Protective Equipment (ICD-10-PCS; 2017-11-20)
PROC: 0HBRXZZ Excision of Toe Nail, External Approach (ICD-10-PCS; 2017-11-22)
DX: J18.9 Pneumonia, unspecified organism (principal); I26.99 Other pulmonary embolism without acute cor pulmonale; J44.0 Chronic obstructive pulmonary disease with (acute) lower respiratory infection; J98.11 Atelectasis; D68.9 Coagulation defect, unspecified; K86.9 Disease of pancreas, unspecified; Z79.01 Long term (current) use of anticoagulants; Z86.711 Personal history of pulmonary embolism; Z90.49 Acquired absence of other specified parts of digestive tract; K59.00 Constipation, unspecified; R41.0 Disorientation, unspecified; R53.81 Other malaise; E06.3 Autoimmune thyroiditis; E07.81 Sick-euthyroid syndrome; F31.9 Bipolar disorder, unspecified; F41.1 Generalized anxiety disorder; F60.9 Personality disorder, unspecified; I10 Essential (primary) hypertension; K44.9 Diaphragmatic hernia without obstruction or gangrene; L60.3 Nail dystrophy

== ENCOUNTER 2018-01-02 22:34 | Observation (INO) | payer MEDICARE ==
[2018-01-02 22:34] VITALS: BMI 25.0
[2018-01-02 23:44] LABS: BASO # 0.1 K/uL (0.0-0.2); BASO % 0.8 % (0.0-2.0); EOS # 0.1 K/uL (0.0-0.7); EOS % 0.9 % (0.0-4.0); HEMOGLOBIN 13.3 g/dL (12.0-16.0); LYMPH # 2.4 K/uL (1.0-4.3); MEAN CELL VOLUME 91.9 fl (81.0-99.0); MEAN CORPUSCULAR HEMOGLOBIN 30.9 pg (27.0-31.0); MEAN CORPUSCULAR HGB CONC 33.7 g/dL (33.0-37.0); MEAN PLATELET VOLUME 9.1 fl (7.2-11.7); MONO # 0.6 K/uL (0.0-0.8); NEUT # 5.2 K/uL (1.8-7.0); NEUT % 62.3 % (50.0-75.0); NRBC % 0.1 % (0.0-0.0); RBC 4.31 Mil/uL (3.80-5.20); WHITE BLOOD COUNT 8.3 K/uL (4.8-10.8)
[2018-01-02 23:48] LABS: INR 1.1; PROTHROMBIN TIME 12.3 Seconds (9.8-13.1)
[2018-01-02 23:50] LABS: PARTIAL THROMBOPLASTIN TIME 33.1 Seconds (25.6-37.1)
[2018-01-03] LABS: VENOUS BLOOD GAS BASE EXCESS 2.5 mmol/L (0.0-2.0); VENOUS BLOOD GAS PCO2 48 mmHg (40-60); VENOUS BLOOD GAS PO2 20 mm/Hg (30-55); VENOUS BLOOD PH 7.38 (7.32-7.43)
--- NOTE | 2018-01-03 | ED PDOC ---
HPI: Psych/Substance Abuse Time Seen by Provider: 01/02/18 22:52 Chief Complaint (Nursing): Shortness Of Breath Chief Complaint (Provider): Shortness Of Breath History Per: Patient History/Exam Limitations: no limitations Onset/Duration Of Symptoms: Days (X1) Current Symptoms Are (Timing): Still Present Suicide/Self Injury Attempted (Context): None Modifying Factor(s): None Additional Complaint(s): 82 y/o female with a PMHx of Anxiety and Depression presents to the ED stating she is feeling anxious. Patient reports of initially feeling depressed than anxious. Patient additionally reports of taking all home medications including Ativan at 8:30 PM with no relief. Patient states pain worsened and is now associated with shortness of breath which she states is common when she has anxiety attacks. Over the last couple days, patient reports of noticing her right leg was swollen. In addition, patient reports she was recently diagnoses with pancreatic cancer. At this time, patient was seen begging religious leader not to leave. Patient was brought in by [facility] who states she herself called 911. Denies chest pain, palpitations, nausea, vomiting, diarrhea, headache and other symptoms. PMD: Loi Patel Past Medical History Reviewed: Historical Data, Nursing Documentation, Vital Signs Vital Signs: Last Vital Signs Temp 98.9 F 01/02/18 22:37 Pulse 93 H 01/02/18 22:37 Resp 26 H 01/02/18 22:37 BP 127/70 01/02/18 22:37 Pulse Ox 97 01/02/18 22:37 - Medical History PMH: Anxiety, Bipolar Disorder, Depression, HTN, Hypercholesterolemia, Hypothyroidism, Pulmonary Embolism (2007) Denies: Diabetes, Hepatitis, HIV, Chronic Kidney Disease, Seizures, Sexually Transmitted Disease - Surgical History Surgical History: Cholecystectomy Denies: CABG - Family History Family History: States: Unknown Family Hx - Home Medications Home Medications: Ambulatory Orders Medication Instructions Recorded Enalapril Maleate [Vasotec] 5 mg PO DAILY 10/19/17 Gabapentin [Neurontin] 100 mg PO Q8 10/19/17 Levothyroxine [Synthroid] 50 mcg PO DAILY 10/19/17 QUEtiapine [Seroquel] 100 mg PO Q12 10/19/17 LORazepam [Ativan] 1 mg PO BID tab 11/17/17 Apixaban [Eliquis] 5 mg PO BID tab 11/27/17 Acidoph/L.bulg/Bif.b/S.thermop 1 tab PO BID 01/03/18 [Bacid Caplet] Omeprazole 40 mg PO DAILY 01/03/18 Simvastatin [Zocor] 20 mg PO DAILY 01/03/18 - Allergies Allergies/Adverse Reactions: Allergies Allergy/AdvReac Type Severity Reaction Status Date / Time levofloxacin [From Levaquin] Allergy RASH Verified 01/03/18 07:35 Review of Systems ROS Statement: Except As Marked, All Systems Reviewed And Found Negative Cardiovascular: Negative for: Chest Pain, Palpitations Respiratory: Positive for: Shortness of Breath Gastrointestinal: Negative for: Nausea, Vomiting, Diarrhea Neurological: Negative for: Headache Psych: Positive for: Anxiety, Depression Physical Exam - Reviewed Nursing Documentation Reviewed: Yes Vital Signs Reviewed: Yes - Physical Exam Appears: Positive for: In Acute Distress (Anxious appearing. Tachypneic) Head Exam: Positive for: ATRAUMATIC, NORMOCEPHALIC Skin: Positive for: Normal Color, Warm, Dry Eye Exam: Positive for: Normal appearance Cardiovascular/Chest: Positive for: Regular Rate, Rhythm. Negative for: Murmur Respiratory: Positive for: Normal Breath Sounds (Clear bilaterally) Pulses-Radial (L): 2+ Pulses-Radial (R): 2+ Gastrointestinal/Abdominal: Positive for: Normal Exam, Soft. Negative for: Tenderness Extremity: Positive for: Normal ROM (of all extremities), Other (Right leg slightly larger than left with mild edema. ). Negative for: Tenderness (on calf squeeze) Neurologic/Psych: Positive for: Alert (awake), Oriented (x3) - Laboratory Results Result Diagrams: 01/02/18 23:41 01/02/18 23:41 - ECG O2 Sat by Pulse Oximetry: 97 (RA) Pulse Ox Interpretation: Normal Medical Decision Making Medical Decision Making: Time: 2355 -- Anxiety most likely diagnosis however, will rule out organic cause. Workup for DVT due to right leg swelling as well as pancreatic workup due to history or reported pancreatic cancer. -- Patient given 2 mg IV Haldol for anxiety and put on heart monitor -- VBG -- CMP -- Lipase -- Crisis Evaluation -- CBC with differentials -- PTT -- Prothrombin Time -- CXR -- Haldol 0.5 mg IVP -- Haldol 2 mg IM -- [employer] -- Urinalysis Time: 0000 -- Patient endorsed to Dr. Kent, pending workup and resolution of anxiety. Scribe Attestation: Documented by Brant Chan acting as a scribe for Jazmyne Gamino MD. Provider Scribe Attestation: All medical record entries made by the Scribe were at my direction and personally dictated by me. I have reviewed the chart and agree that the record accurately reflects my personal performance of the history, physical exam, medical decision making, and the department course for this patient. I have also personally directed, reviewed, and agree with the discharge instructions and disposition. Disposition - Clinical Impression Clinical Impression: Anxiety, Abdominal pain - Patient ED Disposition Is Patient to be Admitted: Transfer of Care - Disposition Disposition: Transfer of Care Disposition Time: 00:00 Condition: STABLE Patient Signed Over To: Alen Kent
[2018-01-03 00:04] LABS: ALB/GLOB RATIO 1.6 (1.0-2.1); ALBUMIN 4.1 g/dL (3.5-5.0); CALCIUM 9.6 mg/dL (8.4-10.2)
--- NOTE | 2018-01-03 00:23 | ED PDOC ---
- Laboratory Results Result Diagrams: 01/02/18 23:41 01/02/18 23:41 - ECG O2 Sat by Pulse Oximetry: 97 (RA) Pulse Ox Interpretation: Normal Medical Decision Making Medical Decision Making: Time: 0000 -- Patient endorsed to me by Dr. Gamino, pending labs, crisis evaluation and re -evaluation. Time: 0121 -- Patient evaluated by crisis who state patient is now stable for discharge with a diagnosis of Anxiety. Time: 0316 -- Patient presenting with persistent anxiety as well as abdominal pain. Multiple efforts made to re-assure patient. Patient refusing discharge on basis of abdominal pain that is due to recent pancreatic cancer. Patient continues to express complaints for abdominal pain. Patient to be hospitalized as an observation patient for pancreatic cancer and intractable vomiting. Patient referred to Dr. Patel. Scribe Attestation: Documented by Brant Chan acting as a scribe for Alen Kent MD. Provider Scribe Attestation: All medical record entries made by the Scribe were at my direction and personally dictated by me. I have reviewed the chart and agree that the record accurately reflects my personal performance of the history, physical exam, medical decision making, and the department course for this patient. I have also personally directed, reviewed, and agree with the discharge instructions and disposition. Disposition Discussed With : Loi Patel - Clinical Impression Clinical Impression: Anxiety, Abdominal pain - POA Present On Arrival: None - Disposition Disposition: Hospitalized as Observation Patient Disposition Time: 03:16 Condition: STABLE
[2018-01-03] MEDS ORDERED: Levothyroxine 50 MCG TAB PO SCH (06:30)
--- NOTE | 2018-01-03 08:25 | RAD ---
Date of service: 01/02/2018 HISTORY: possible admission COMPARISON: 11/21/2017 FINDINGS: LUNGS: Low-normal lung volumes. Probable trace left pleural effusion and/or chronic pleural thickening. No justice consolidation. PLEURA: No significant pleural effusion identified, no pneumothorax apparent. CARDIOVASCULAR: Moderate cardiomegaly. Probable top-normal pulmonary venous status. OSSEOUS STRUCTURES: Thoracic spondylosis. Bilateral shoulder arthrosis. VISUALIZED UPPER ABDOMEN: Large hiatal hernia. OTHER FINDINGS: None. IMPRESSION: No interval pathology noted.
[2018-01-03] MEDS ORDERED: Pantoprazole 40 mg EC Tab PO SCH (09:00)
[2018-01-03] MEDS ORDERED: Lactobacillus Acidophilus 500 MU Cap PO SCH (09:00)
[2018-01-03] MEDS ORDERED: Pantoprazole 40 mg EC Tab PO ONE (09:19)
--- NOTE | 2018-01-03 10:45 | CP.PCM.HP ---
History of Present Illness - History of Present Illness History of Present Illness: CC: Nervous, pancreatic cancer THIS DOCUMENT TO SERVE BOTH H AND P AND DISCHARGE SUMMARY. HPI: 82F PMH Anxiety and Depression presented to ED last night 2/2 feeling anxious. Patient reports feeling moderately depressed and anxious not worsening or improving, constant, not ameliorated by anything. Patient additionally reports of taking all home medications including Ativan at 8:30 PM with no relief. In ED patient stated pain worsened and is now associated with shortness of breath which she states is common when she has anxiety attacks. She reports she was recently diagnoses with pancreatic cancer and her recently . Patient was cleared by crisis, upon examination this morning, patient did not complain of any abdominal pain. Discussed with Dr. Patel and Dr. Daniels who is her Foam Charger. Patient is currently at baseline and stable to be discharged home with follow up PCP. ROS: per HPI all other systems reviewed and negative. Present on Admission - Present on Admission Any Indicators Present on Admission: No Past Patient History - Infectious Disease Hx of Infectious Diseases: None - Tetanus Immunizations Tetanus Immunization: Unknown - Past Medical History & Family History Past Medical History?: Yes - Past Social History Smoking Status: Never Smoked - CARDIAC Hx Cardiac Disorders: No Hx Hypertension: Yes - PULMONARY Hx Tuberculosis: No - NEUROLOGICAL HX Cerebrovascular Accident: No Hx Seizures: No - HEENT Hx HEENT Problems: No - RENAL Hx Chronic Kidney Disease: No - ENDOCRINE/METABOLIC Hx Hypothyroidism: Yes - HEMATOLOGICAL/ONCOLOGICAL Hx Cancer: No Hx Human Immunodeficiency Virus (HIV): No - INTEGUMENTARY Hx Dermatological Problems: No - MUSCULOSKELETAL/RHEUMATOLOGICAL Hx Musculoskeletal Disorders: No Hx Falls: No - GASTROINTESTINAL Hx Constipation: Yes - GENITOURINARY/GYNECOLOGICAL Hx Sexually Transmitted Disorders: No - PSYCHIATRIC Hx Anxiety: Yes Hx Bipolar Disorder: Yes Hx Depression: Yes - SURGICAL HISTORY Hx Cholecystectomy: Yes Hx Coronary Artery Bypass Graft: No - ANESTHESIA Hx Anesthesia: Yes Hx Anesthesia Reactions: No Meds Allergies/Adverse Reactions: Allergies Allergy/AdvReac Type Severity Reaction Status Date / Time levofloxacin [From Levaquin] Allergy RASH Verified 01/03/18 07:35 Physical Exam - Constitutional Appears: Non-toxic, No Acute Distress - Head Exam Head Exam: ATRAUMATIC, NORMOCEPHALIC - Eye Exam Eye Exam: EOMI, Normal appearance - ENT Exam ENT Exam: Mucous Membranes Moist, Normal Oropharynx - Respiratory Exam Respiratory Exam: Clear to Auscultation Bilateral, NORMAL BREATHING PATTERN - Cardiovascular Exam Cardiovascular Exam: RRR, +S1, +S2 - GI/Abdominal Exam GI & Abdominal Exam: Normal Bowel Sounds, Soft. absent: Tenderness - Extremities Exam Extremities exam: Positive for: normal capillary refill, pedal pulses present - Back Exam Back exam: absent: CVA tenderness (L), CVA tenderness (R) - Neurological Exam Neurological exam: Alert, Reflexes Normal - Psychiatric Exam Psychiatric exam: Normal Affect, Normal Mood - Skin Skin Exam: Dry, Warm Results - Vital Signs Recent Vital Signs: Last Vital Signs Temp 98.9 F 01/02/18 22:37 Pulse 73 01/03/18 08:26 Resp 18 01/03/18 08:26 BP 130/81 01/03/18 08:26 Pulse Ox 96 01/03/18 08:26 - Labs Result Diagrams: 01/02/18 23:41 01/02/18 23:41 Labs: Laboratory Results - last 24 hr 01/02/18 01/02/18 01/02/18 23:41 23:41 23:41 WBC 8.3 RBC 4.31 Hgb 13.3 Hct 39.6 MCV 91.9 MCH 30.9 MCHC 33.7 RDW 14.0 Plt Count 209 MPV 9.1 Neut % (Auto) 62.3 Lymph % (Auto) 29.0 Irwin % (Auto) 7.0 Eos % (Auto) 0.9 Baso % (Auto) 0.8 Neut # (Auto) 5.2 Lymph # (Auto) 2.4 Irwin # (Auto) 0.6 Eos # (Auto) 0.1 Baso # (Auto) 0.1 PT 12.3 INR 1.1 APTT 33.1 pO2 VBG pH VBG pCO2 VBG HCO3 VBG Total CO2 VBG O2 Sat (Calc) VBG Base Excess VBG Potassium Glucose Lactate FiO2 Crit Value Called To Crit Value Called By Crit Value Read Back Blood Gas Notified Time Sodium 140 Potassium 4.6 Chloride 104 Carbon Dioxide 26 Anion Gap 15 BUN 35 H Creatinine 1.1 Est GFR ( Amer) 58 Est GFR (Non-Af Amer) 48 Random Glucose 112 H Calcium 9.6 Total Bilirubin 0.4 AST 29 ALT 36 Alkaline Phosphatase 53 Total Protein 6.7 Albumin 4.1 Globulin 2.6 Albumin/Globulin Ratio 1.6 Lipase 94 Venous Blood Potassium 01/02/18 23:56 WBC RBC Hgb Hct MCV MCH MCHC RDW Plt Count MPV Neut % (Auto) Lymph % (Auto) Irwin % (Auto) Eos % (Auto) Baso % (Auto) Neut # (Auto) Lymph # (Auto) Irwin # (Auto) Eos # (Auto) Baso # (Auto) PT INR APTT pO2 20 L VBG pH 7.38 VBG pCO2 48 VBG HCO3 25.1 VBG Total CO2 29.9 H VBG O2 Sat (Calc) 39.4 L VBG Base Excess 2.5 H VBG Potassium 6.2 H* Glucose 106 H Lactate 0.8 FiO2 21.0 Crit Value Called To Dr cleo carr Crit Value Called By Ariana Crit Value Read Back Y Blood Gas Notified Time 0 Sodium 121.0 L Potassium Chloride 92.0 L Carbon Dioxide Anion Gap BUN Creatinine Est GFR ( Amer) Est GFR (Non-Af Amer) Random Glucose Calcium Total Bilirubin AST ALT Alkaline Phosphatase Total Protein Albumin Globulin Albumin/Globulin Ratio Lipase Venous Blood Potassium 6.2 H* Assessment & Plan - Assessment and Plan (Free Text) Plan: 82F PMH Anxiety and Depression presented to ED last night 2/2 feeling anxious. Patient reports feeling moderately depressed and anxious not worsening or improving, constant, not ameliorated by anything. Patient additionally reports of taking all home medications including Ativan at 8:30 PM with no relief. In ED patient stated pain worsened and is now associated with shortness of breath which she states is common when she has anxiety attacks. She reports she was recently diagnoses with pancreatic cancer and her recently . Patient was cleared by crisis, upon examination this morning, patient did not complain of any abdominal pain. Discussed with Dr. Patel and Dr. Daniels who is her Foam Charger. Patient is currently at baseline and stable to be discharged home with follow up PCP. Anxiety Depression Pancreatic Ca patient is stable, no acute issues. Eval by Crisis. Stable to be discharged home with follow up PCP.
[2018-01-03 11:09] VITALS: BP 130/78; PULSE 81; RESP 16; TEMP 98
[2018-01-04 00:13] VITALS: O2SAT 97
== END 2018-01-03 11:10 | disposition home or self-care (01) ==
LOC: H.ER 22:34 → H.ERHOLD 01-03 02:50
PROVIDERS: ADMIT Internal Medicine; ATTEND Internal Medicine
DX: F41.9 Anxiety disorder, unspecified (principal); F31.9 Bipolar disorder, unspecified; C25.9 Malignant neoplasm of pancreas, unspecified; E78.00 Pure hypercholesterolemia, unspecified; Z86.711 Personal history of pulmonary embolism; E03.9 Hypothyroidism, unspecified; I10 Essential (primary) hypertension; R10.9 Unspecified abdominal pain; Z88.3 Allergy status to other anti-infective agents
CPT/HCPCS: 71045; 80053; 82803; 83690; 85025; 85610; 85730; 96372; 96374; 99284; G0378; J1630; J2060

== ENCOUNTER 2018-02-17 20:01 | Emergency (ER) | payer MEDICARE ==
[2018-02-17 20:01] VITALS: BMI 25.0
[2018-02-17 20:11] VITALS: TEMP 98.4
[2018-02-17 21:21] LABS: BASO % 0.5 % (0.0-2.0); EOS # 0.1 K/uL (0.0-0.7); EOS % 1.1 % (0.0-4.0); HEMOGLOBIN 13.6 g/dL (12.0-16.0); LYMPH # 2.4 K/uL (1.0-4.3); LYMPH % 26.6 % (20.0-40.0); MEAN CELL VOLUME 91.8 fl (81.0-99.0); MEAN CORPUSCULAR HEMOGLOBIN 30.8 pg (27.0-31.0); MEAN CORPUSCULAR HGB CONC 33.5 g/dL (33.0-37.0); MEAN PLATELET VOLUME 8.8 fl (7.2-11.7); MONO # 0.7 K/uL (0.0-0.8); MONO % 7.2 % (0.0-10.0); NEUT # 5.9 K/uL (1.8-7.0); NEUT % 64.6 % (50.0-75.0); NRBC % 0.1 % (0.0-0.0); RBC 4.42 Mil/uL (3.80-5.20); RED CELL DISTRIBUTION WIDTH 14.4 % (11.5-14.5); WHITE BLOOD COUNT 9.1 K/uL (4.8-10.8)
[2018-02-17 21:23] LABS: INR 1.1; PROTHROMBIN TIME 12.3 Seconds (9.8-13.1)
[2018-02-17 21:28] LABS: ALB/GLOB RATIO 1.3 (1.0-2.1); ALBUMIN 3.9 g/dL (3.5-5.0); ALT/SGPT 35 U/L (9-52); AST/SGOT 27 U/L (14-36); BLOOD UREA NITROGEN 24 mg/dl (7-17); CALCIUM 9.5 mg/dL (8.4-10.2); GFR NON-AFRICAN AMERICAN 53
[2018-02-17 21:35] VITALS: O2SAT 98
[2018-02-17 21:40] LABS: B-TYPE NATRIURETIC PEPTIDE 274 pg/ml (0-900)
--- NOTE | 2018-02-17 22:35 | ED PDOC ---
HPI: Chest Pain Time Seen by Provider: 02/17/18 20:23 Chief Complaint (Nursing): Abdominal Pain Chief Complaint (Provider): Abdominal Pain History Per: Patient History/Exam Limitations: no limitations Onset/Duration Of Symptoms: Hrs Current Symptoms Are (Timing): Still Present Quality: Burning Associated Symptoms: Nausea Additional Complaint(s): Radha Garrison is an 82 year old female with a past medical history of hy pertension, anxiety, bipolar disorder, depression, pancreatic cancer, DVT, and PE who is presenting to the ED with complaints of burning sensation in her chest and abdomen onset this afternoon. Patient denies any pain and states that she is very anxious and is having difficulty breathing but attributes it to anxiety. She also adds that she feels nauseous and attributes it to anxiety and denies any vomiting. Patient offers no other medical complaints at this time. Of note, patient is currently on eliquis and compliant with medications. PMD: Amanda,Loi - Risk Factors PE Risk Factors: Pos: Previous DVT, Previous PE TAD Risk Factors: Pos: Hypertension Past Medical History Reviewed: Historical Data, Nursing Documentation, Vital Signs Vital Signs: Last Vital Signs Temp 98.4 F 02/17/18 20:05 Pulse 78 02/17/18 21:20 Resp 21 02/17/18 21:20 BP 152/120 H 02/17/18 21:20 Pulse Ox 98 02/17/18 21:20 - Medical History PMH: Anxiety, Bipolar Disorder, Depression, Deep Vein Thrombosis, Gastritis, HTN, Hypercholesterolemia, Hypothyroidism, Pulmonary Embolism (2007) Denies: Diabetes, Hepatitis, HIV, Chronic Kidney Disease, Seizures, Sexually Transmitted Disease - Surgical History Surgical History: Cholecystectomy, Endoscopy Denies: CABG - Family History Family History: States: Unknown Family Hx - Social History Current smoker - smoking cessation education provided: No Ex-Smoker (has not smoked in the last 12 months): No Alcohol: None - Home Medications Home Medications: Ambulatory Orders Medication Instructions Recorded RX: Enalapril Maleate [Vasotec] 5 mg PO DAILY 10/19/17 RX: Gabapentin [Neurontin] 100 mg PO Q8 10/19/17 RX: Levothyroxine [Synthroid] 50 mcg PO DAILY 10/19/17 RX: QUEtiapine [Seroquel] 100 mg PO Q12 10/19/17 RX: LORazepam [Ativan] 1 mg PO BID tab 11/17/17 RX: Apixaban [Eliquis] 5 mg PO BID tab 11/27/17 RX: Acidoph/L.bulg/Bif.b/S.thermop 1 tab PO BID 01/03/18 [Bacid Caplet] RX: Omeprazole 40 mg PO DAILY 01/03/18 RX: Simvastatin [Zocor] 20 mg PO DAILY 01/03/18 - Allergies Allergies/Adverse Reactions: Allergies Allergy/AdvReac Type Severity Reaction Status Date / Time levofloxacin [From Levaquin] Allergy SHORTNESS Verified 02/17/18 20:04 OF BREATH SUYAPA Risk Score for UA/NSTEMI - SUYAPA Risk Score Age > 64: YES 3 or more CAD Risk Factors: NO Known CAD (Stenosis greater than 50%): NO Aspirin use in past 7 days: NO Severe Angina: NO EKG ST changes greater than 0.5mm: NO Positive Cardiac Marker: NO SUYAPA Score: 1 Risk %: 5% Wells Criteria for PE - Wells Criteria for Pulmonary Embolism Clinical Signs and Symptoms of DVT: No P.E is #1 Diagnosis, or Equally Likely: No Heart Rate >100: No Immobilization at least 3 days;Surgery previous 4 weeks: No Previous, objectively diagnosed PE or DVT: Yes Hemoptysis: No Malignancy w/treatment within 6 months, or palliative: No Total Score: 1.5 Review of Systems ROS Statement: Except As Marked, All Systems Reviewed And Found Negative Cardiovascular: Positive for: Chest Pain (burning ) Gastrointestinal: Positive for: Nausea, Abdominal Pain (burning ). Negative for: Vomiting Psych: Positive for: Anxiety Physical Exam - Reviewed Nursing Documentation Reviewed: Yes Vital Signs Reviewed: Yes - Physical Exam Appears: Positive for: Non-toxic, No Acute Distress Head Exam: Positive for: ATRAUMATIC, NORMAL INSPECTION, NORMOCEPHALIC Skin: Positive for: Normal Color, Warm, DRY Eye Exam: Positive for: EOMI, Normal appearance, PERRL ENT: Positive for: Normal ENT Inspection Neck: Positive for: Normal, Painless ROM Cardiovascular/Chest: Positive for: Regular Rate, Rhythm. Negative for: Murmur Respiratory: Positive for: Normal Breath Sounds. Negative for: Respiratory Distress Gastrointestinal/Abdominal: Positive for: Normal Exam, Soft. Negative for: Tenderness Back: Positive for: Normal Inspection Extremity: Positive for: Normal ROM. Negative for: Deformity, Swelling Neurologic/Psych: Positive for: Alert, Oriented. Negative for: Motor/Sensory Deficits - Laboratory Results Result Diagrams: 02/17/18 21:10 02/17/18 21:10 - ECG O2 Sat by Pulse Oximetry: 98 (RA) Pulse Ox Interpretation: Normal Medical Decision Making Medical Decision Making: Time: 21:10 Impression: chest and abdominal discomfort, anxious, dyspnea Differentials: Anxiety, ACS, Less likely PE Plan: --EKG --BNP --CMP --Troponin --ED Urine --ED Urine Dipstick --CBC --Coag --Chest X-Ray --Ativan 1 mg PO --Zofran 4 mg IV -- Scribe Attestation: Documented by, Lu Irwin acting as a scribe for Toño Rick MD. Provider Scribe Attestation: All medical record entries made by the Scribe were at my direction and personally dictated by me. I have reviewed the chart and agree that the record accurately reflects my personal performance of the history, physical exam, medical decision making, and the department course for this patient. I have also personally directed, reviewed, and agree with the discharge instructions and disposition. Disposition - Clinical Impression Clinical Impression: Chest pain, Anxiety disorder - Patient ED Disposition Is Patient to be Admitted: No Doctor Will See Patient In The: Office Counseled Patient/Family Regarding: Studies Performed, Diagnosis - Disposition Referrals: Loi Patel MD [Staff Provider] - Disposition: Routine/Home Disposition Time: 00:09 Condition: GOOD Additional Instructions: RADHA GARRISON, thank you for letting us take care of you today. Your provider was Toño Rick MD and you were treated for POSS ANXIETY,ABD PAIN. The emergency medical care you received today was directed at your acute symptoms. If you were prescribed any medication, please fill it and take as directed. It may take several days for your symptoms to resolve. Return to the Emergency De partment if your symptoms worsen, do not improve, or if you have any other problems. Please contact your doctor or call one of the physicians/clinics you have been referred to that are listed on the Patient Visit Information form that is included in your discharge packet. Bring any paperwork you were given at discharge with you along with any medications you are taking to your follow up visit. Our treatment cannot replace ongoing medical care by a primary care provider outside of the emergency department. Thank you for allowing the [facility] team to be part of your care today. If you had an X-Ray or CT scan: A Radiologist will review the ED reading if any change in treatment is needed we will contact you. If you had a blood, urine, or wound culture: It will take several days for the results, if any change in treatment is needed we will contact you. If you had an STI test: It will take 48 hours for the results. Please call after 1 week if you have not heard back. Instructions: Anxiety, Adult (DC)
[2018-02-18 07:05] VITALS: BP 135/63; PULSE 80; RESP 20
--- NOTE | 2018-02-18 16:26 | RAD ---
Date of service: 02/17/2018 PROCEDURE: CHEST RADIOGRAPH, 1 VIEW HISTORY: dyspnea COMPARISON: Comparison is made with 01/02/2018 FINDINGS: LUNGS: No evidence of new infiltrate or consolidation in the lungs. PLEURA: No pneumothorax or pleural fluid seen. CARDIOVASCULAR: Normal. OSSEOUS STRUCTURES: No significant abnormalities. VISUALIZED UPPER ABDOMEN: Normal. OTHER FINDINGS: Suspicious for large hiatus hernia. IMPRESSION: No evidence of significant interval changes.
--- NOTE | 2018-02-18 17:04 | CARD ---
APPROVED REPORT Date of service: 02/17/2018 EKG Measurement Heart [id number] <Conclusion> Normal sinus rhythm Left axis deviation Minimal voltage criteria for LVH, may be normal variant Abnormal ECG
== END 2018-02-18 02:05 | disposition home or self-care (01) ==
LOC: H.ER 20:01
DX: F41.9 Anxiety disorder, unspecified (principal); R07.9 Chest pain, unspecified; Z86.59 Personal history of other mental and behavioral disorders; I10 Essential (primary) hypertension; Z86.718 Personal history of other venous thrombosis and embolism; Z79.01 Long term (current) use of anticoagulants; Z86.711 Personal history of pulmonary embolism; Z87.891 Personal history of nicotine dependence
CPT/HCPCS: 71045; 80053; 83880; 84484; 85025; 85610; 85730; 93005; 96374; 99285; J2405